=== PATIENT | male | born 1935 | race Caucasian/White ===

== ENCOUNTER → 2016-12-17 | Outpatient (CLI) | payer MEDICARE, BC ==
[~2016-12-17] MED LIST: ATEN25TA PO; FURO40TA2 PO; LEVA1TAB2 PO; LEVO25TA5 PO; LOSA50TA20 PO; PRAV40TA2 PO; ROPI0.5T PO; TAMS0.4C2 PO; aspirin PO
--- NOTE | 2016-12-17 14:57 | REP ---
Clinical: Pain and swelling . Technique: Batres scale and color Doppler evaluation using linear high frequency transducer. Findings: Ultrasound examination of the right lower extremity deep venous structures from the common femoral vein to the popliteal vein demonstrates normal compressibility flow and wave patterns in response to respiration and augmentation. There is no evidence for deep venous thrombosis. Impression: No evidence for deep venous thrombosis. Signed by Jeff Dyer MD 12/17/2016 02:49 P
--- NOTE | 2016-12-17 15:00 | REP ---
Clinical: Palpable mass. Technique: Real time lacey scale and color evaluation using linear high frequency transducer. Findings: Directed ultrasound examination at the site of palpable mass along the mid lateral east demonstrates a avascular subcutaneous fluid collection measuring 3.3 x 0.7 x 2.9 cm with small amount of internal echogenicity. The patient gives a history of trauma and this may represent resolving hematoma or residual seroma. Impression: Small fluid collection may represent hematoma versus seroma. Signed by Jeff Dyer MD 12/17/2016 02:52 P
== END ==
LOC: M RAD 13:55
PROVIDERS: ATTEND Physician Assistant
DX: R22.41 Localized swelling, mass and lump, right lower limb (principal)

== ENCOUNTER → 2017-03-04 | Outpatient (CLI) | payer MEDICARE, BC | LOC: M LAB 10:09 | PROVIDERS: ATTEND Radiology Radiation Oncology | DX: C61 Malignant neoplasm of prostate (principal) ==

== ENCOUNTER → 2017-03-05 | Outpatient (CLI) | payer MEDICARE, BC ==
--- NOTE | 2017-03-06 09:20 | RADONC ---
RADIATION ONCOLOGY FOLLOWUP NOTE DATE: 03/05/2017 CHART NUMBER: [id number] DIAGNOSIS: Prostate cancer. STAGE: II, [id number]. FOLLOWUP NOTE: Mr. 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 The patient presents today reporting he is doing quite well with no complaints at this time related to his radiation therapy or disease. He has no urinary or bowel difficulties, and no bone pain. REVIEW OF SYSTEMS: The patient's review of systems is noncontributory. He denies nausea, vomiting, fevers, chills, night sweats, diplopia, headaches, anxiety or depression, anorexia, weight loss, visual disturbances, chest pain, urinary or bowel difficulties, bone pain or neurological problems. PHYSICAL EXAMINATION: The patient is a well-developed, well-nourished male in no acute distress. HEENT exam is normocephalic, atraumatic. Extraocular movements are intact. There is no palpable cervical, supraclavicular, infraclavicular, axillary, or inguinal lymphadenopathy present. Lungs are clear to auscultation and percussion. Heart has a regular rate and rhythm. Abdomen is benign with no hepatosplenomegaly, masses, or tenderness. Rectal examination reveals a normal anal sphincter tone. His prostate is smooth with no evidence of nodularity. Skeletal examination reveals no tenderness to pressure or percussion of the bony skeleton. Extremities reveal no clubbing, cyanosis, or edema. Neurologic exam is grossly intact as is the remainder of the physical examination. ASSESSMENT: The patient is clinically ANNETTE at this time and will be seen by us again in 1 year for further followup. He will also continue to be followed by his other physicians as well. cc: MD Leonor Bunch DO
== END ==
LOC: M ONCR 12:56
PROVIDERS: ATTEND Radiology Radiation Oncology
DX: C61 Malignant neoplasm of prostate (principal)

== ENCOUNTER → 2017-09-03 | Outpatient (REF) | payer MEDICARE, BC ==
[2017-09-07 00:06] LABS: Lyme Disease IgG Ab 18 kDa Ban Present (.); Lyme Disease IgG Ab 23 kDa Ban Present (.); Lyme Disease IgG Ab 28 kDa Ban Absent (.); Lyme Disease IgG Ab 30 kDa Ban Absent (.); Lyme Disease IgG Ab 39 kDa Ban Present (.); Lyme Disease IgG Ab 41 kDa Ban Present (.); Lyme Disease IgG Ab 45 kDa Ban Absent (.); Lyme Disease IgG Ab 58 kDa Ban Present (.); Lyme Disease IgG Ab 66 kDa Ban Absent (.); Lyme Disease IgG Ab 93 kDa Ban Absent (.); Lyme Disease IgG West Blot Int Positive (.); Lyme Disease IgG/IgM Antibodie 3.66 ISR (0.00-0.90); Lyme Disease IgM Ab 23 kDa Ban Present (.); Lyme Disease IgM Ab 39 kDa Ban Absent (.); Lyme Disease IgM Ab 41 kDa Ban Absent (.); Lyme Disease IgM Ab Quantitati <0.80 index (0.00-0.79); Lyme Disease IgM West Blot Int Negative (.)
== END ==
LOC: M LAB REF 09:21
DX: R21 Rash and other nonspecific skin eruption (principal)
CPT/HCPCS: 86617

== ENCOUNTER → 2017-12-12 | Outpatient (REF) | payer MEDICARE, BC ==
[2017-12-12 19:06] LABS: FERRITIN 19 NG/ML (26-388); IRON (FE) 28 UG/DL (65-175); PERCENT SATURATION 9.3 % (19.7-50.0); TOTAL IRON BINDING CAPACITY 301 UG/DL (250-450)
[2017-12-12 19:11] LABS: FOLATE 17.6 NG/ML; VITAMIN B12 LEVEL 223 PG/ML
[2017-12-12 19:56] LABS: RETIC HEMOGLOBIN EQUIVALENT 30.2 pg (24-36); RETICULOCYTE # 51.9 10^9/L (17-77); RETICULOCYTE % 1.3 % (0.5-1.5)
== END ==
LOC: M LAB REF 17:34
DX: D64.9 Anemia, unspecified (principal)
CPT/HCPCS: 82746

== ENCOUNTER 2018-02-25 10:52 | Day surgery (SDC) | payer MEDICARE, BC ==
[2018-02-25] MEDS: NS 1,000 ML IV ×2 (11:00)
[2018-02-25] MEDS ORDERED: PROPOFOL 200 MG/20 ML VIAL As Ordered ×2 (11:43)
[2018-02-25] MEDS ORDERED: fentaNYL 100 MCG/2 ML INJECTION (J3010) As Ordered ×2 (11:43)
[2018-02-25] MEDS ORDERED: LIDOCAINE 2% INJ 100 MG/5 ML SDV (FOR ANES.) As Ordered ×2 (11:43)
[2018-02-25 14:33] LABS: BLOOD UREA NITROGEN 15 MG/DL (7-18)
[2018-02-25 14:33] LABS: CREATININE FOR GFR 0.99 MG/DL (0.70-1.30); GLOMERULAR FILTRATION RATE > 60.0 (>35)
== END 2018-02-25 14:20 | disposition home or self-care (01) ==
LOC: M OPP 10:52
DX: C16.0 Malignant neoplasm of cardia (principal); D50.9 Iron deficiency anemia, unspecified; K64.0 First degree hemorrhoids; K57.30 Diverticulosis of large intestine without perforation or abscess without bleeding
CPT/HCPCS: 45378

== ENCOUNTER → 2018-03-09 | Outpatient (CLI) | payer MEDICARE, BC ==
[2018-03-09 11:33] LABS: PROSTATIC SPECIFIC AG MONITOR 0.2 NG/ML (< 4.0)
== END ==
LOC: M LAB 10:38
DX: C61 Malignant neoplasm of prostate (principal)
CPT/HCPCS: 84153

== ENCOUNTER → 2018-03-11 | Outpatient (CLI) | payer MEDICARE, BC | LOC: M ONCR 12:47 | DX: C61 Malignant neoplasm of prostate (principal) | CPT/HCPCS: G0463 ==

== ENCOUNTER → 2018-03-25 | Outpatient (CLI) | payer MEDICARE, BC ==
[~2018-03-25] MED LIST changes: +AMLO5TAB4 PO; +ASPI325T25 PO; +ASPI81TA85 PO; -LOSA50TA20 PO; +LOSA50TA73 PO
--- NOTE | 2018-03-25 19:02 | REP ---
PET/CT: History: Initial staging gastroesophageal junction adenocarcinoma. Assess for distant metastatic disease. Comparisons: Comparison CT study of the chest, abdomen and pelvis February 25, 2018. TECHNIQUE: 58 minutes following the intravenous injection of a 8.3 mCi dose of F-18 FDG, three-dimensional PET scintigraphy is acquired from the skull base to the proximal thighs. Triplanar noncontrast CT scanning is acquired through the same anatomic range for attenuation correction, and image registration with scan parameters optimized to minimize radiation exposure to the patient. PET scintigraphy and CT datasets were fused and displayed on a workstation with multiplanar and projection display capability. PET/CT Findings: The known mass at the gastric cardia at the GE junction shows hypermetabolic uptake. Maximum standard uptake value is rather high at 13.8. The hypermetabolic uptake focus is smaller than might be expected from the CT findings spanning approximately 2.2 cm. There is no evidence of regional hypermetabolic adenopathy. No abnormal hypermetabolic uptake is seen within the liver. No abnormal adrenal uptake is seen. There are two accessory splenules at the inferior margin of the spleen. These do not show abnormal FDG tracer. No other abnormal abdominal or pelvic uptake is seen. There is diverticulosis in the sigmoid colon. There is no abnormal hypermetabolic uptake in the thorax. Head and neck soft tissues are unremarkable. The PET scintigraphy is otherwise negative. Impression: Hypermetabolic uptake in a 2.2 cm area at the gastroesophageal junction/gastric cardia region. Maximum standard uptake value 13.8. No other abnormal hypermetabolic uptake is seen. Electronically Signed by Cole Betancourt MD 03/25/2018 08:47 P
== END ==
LOC: M PLARAD 08:11
PROVIDERS: ATTEND Surgery
DX: C16.0 Malignant neoplasm of cardia (principal); I25.10 Atherosclerotic heart disease of native coronary artery without angina pectoris; I50.9 Heart failure, unspecified; I11.0 Hypertensive heart disease with heart failure
CPT/HCPCS: 78815; A9552

== ENCOUNTER → 2018-04-23 | Outpatient (CLI) | payer MEDICARE, BC ==
[~2018-04-23] MED LIST changes: -AMLO5TAB4 PO; +AMLO5TAB6 PO; -LOSA50TA73 PO; +LOSA50TA88 PO
--- NOTE | 2018-04-24 11:10 | RADONC ---
RADIATION ONCOLOGY CONSULTATION NOTE DATE: 04/23/2018 CHART NUMBER: [id number] DIAGNOSIS: Gastroesophageal cancer. STAGE: II B, T2N0M0. ECOG PERFORMANCE STATUS: 1 CONSULTATION NOTE: Mr. 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 HISTORY OF PRESENT ILLNESS: The patient was in his usual state of health until recently when he was seen by his primary care physician, Dr. Nick Riddle, and was found to have iron-deficiency anemia. He was subsequently referred to Dr. Zhang, and colonoscopy as well as upper endoscopy was undertaken. The procedure was done on February 25, 2018 and a circumferential mass was seen in the cardia of the stomach. So biopsy was undertaken and pathology revealed a poorly differentiated adenocarcinoma involving the gastric cardia. It was noted that the tumor was 40 cm from the incisors. It was nonobstructing. It involved approximately one-third of the lumen circumference. CT scan of the chest, abdomen and pelvis was undertaken on 02/25/2018 and confirms circumferential mucosal thickening at the gastroesophageal junction consistent with gastric neoplasm. A PET scan was done on 03/25/2018 and showed hypermetabolic uptake in a 2.2 cm area at the gastroesophageal junction/gastric cardia region with a maximum SUV value of 13.8. The patient was seen by Dr. Irvin Anne, who spent significant amount of time with the patient and his discussing his options as well as the risks and benefits of each. 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 as well as having a diagnosis of congestive heart failure. He had explained to him in detail external beam radiation therapy as a palliative option, external beam radiation therapy combined with chemotherapy as well as preoperative radiation and surgery. The risks of surgery were explained in detail considering his advanced age and cardiac issues. The patient is now coming to me for further discussion of these issues. PAST MEDICAL HISTORY: The patient's past medical history is positive for congestive heart failure, hearing loss, hypertension, prostate cancer, myocardial infarction, diverticulosis, and chronic kidney disease. ALLERGIES: The patient has NO KNOWN DRUG ALLERGIES. SOCIAL HISTORY: The patient does not smoke cigarettes. He does not abuse alcohol. FAMILY HISTORY: The patient's family history is positive for a father with colon cancer. REVIEW OF SYSTEMS: The patient's review of systems is positive for hearing loss but is otherwise generally noncontributory. Denies nausea, vomiting, fevers, chills, night sweats, diplopia, headaches, anxiety or depression, anorexia, weight loss, visual disturbances, chest pain, urinary or bowel difficulties, bone pain, or neurological problems. PHYSICAL EXAMINATION: The patient is a well-developed, well-nourished male in no acute distress. HEENT exam is normocephalic, atraumatic. Extraocular movements are intact. There is no palpable cervical, supraclavicular, infraclavicular, axillary, or inguinal lymphadenopathy present. Lungs are clear to auscultation and percussion. Heart has a regular rate and rhythm. Abdomen is benign with no hepatosplenomegaly, masses, or tenderness. Skeletal examination reveals no tenderness to pressure or percussion of the bony skeleton. Extremities reveal no clubbing, cyanosis, or edema. Neurologic exam is grossly intact, as is the remainder of the physical examination. ASSESSMENT: Once again, I spent a significant amount time with the patient discussing his options. He is aware that the most likely chance of obtaining long-term control and potential cure of this is with surgery. The patient, however does not appear to want surgery. We then discussed radiation therapy in attempt to obtain some type of local control. I discussed with him the idea of systemic therapy and they appear quite hesitant to consider that. I let him know that at his age and his condition he cannot really make a wrong choice. Quality of life is important and he does have multiple medical illnesses, which would make some of these interventions somewhat risky. At the end of a lengthy discussion, the patient and his decided they do want external beam radiation therapy. Indeed, he has had that in the past without any difficulty whatsoever for his prostatic cancer. I did encourage him and have scheduled an appointment for him to our medical oncologist, Dr. Soledad Oreilly, for at least discussion of any systemic option. The patient is hesitant to even consider surgery at this time. I let him know that the radiation would be the same at least during the first 6 weeks of treatment and that any decision does not have to be made at this time. He can decide on surgery sometime before completion of radiation. We will continue to follow this patient closely and hope we can be of benefit to him. As noted above, he is scheduled to be seen in medical oncology and we are scheduling him for initiation of treatment planning. Thank you once again for allowing us to participate in the care of this very pleasant gentleman. As always, warm regards. cc: MD Soledad Gabriel MD Gerald Weinstein, MD Jason White, MD
== END ==
LOC: M ONCR 09:59
PROVIDERS: ATTEND Radiology Radiation Oncology
DX: C16.0 Malignant neoplasm of cardia (principal)

== ENCOUNTER 2018-04-29 13:02 | Outpatient (RCR) | payer MEDICARE, BC ==
[2018-04-29 13:30] LABS: HEMATOCRIT 32.1 % (42.0-52.0); HEMOGLOBIN 10.3 g/dl (13.5-17.5); LYMPH % 18.4 % (24.0-44.0); MEAN CORPUSCULAR HEMOGLOBIN 27.1 pg (27.0-33.0); MEAN CORPUSCULAR HGB CONC 32.1 g/dl (32.0-36.5); MEAN CORPUSCULAR VOLUME 84.4 fl (80.0-96.0); NEUTROPHILS # 5.8 10^3/uL (1.8-7.7); NEUTROPHILS % 70.6 % (36.0-66.0); RED BLOOD COUNT 3.8 10^6/uL (4.30-6.10); WHITE BLOOD COUNT 8.2 10^3/uL (4.0-10.0)
--- NOTE | 2018-04-29 14:57 | RADONC ---
RADIATION ONCOLOGY SIMULATION NOTE: DATE: 04/29/2018 CHART NUMBER: [id number] Mr. Lopez was taken to the CT scan for CT simulation of his gastroesophageal field. CT was accomplished without difficulty or discomfort. Radiation treatment planning is underway and radiation treatments will begin subsequently. An immobilization device was created. It will be used throughout the course of treatment. It was created without difficulty or discomfort. I was physically present throughout the course of CT simulation.
== END 2018-05-07 ==
LOC: M ONCR 13:02
PROVIDERS: ATTEND Radiology Radiation Oncology
DX: C16.0 Malignant neoplasm of cardia (principal)

== ENCOUNTER → 2018-06-04 | Outpatient (RCR) | payer MEDICARE, BC ==
--- NOTE | 2018-05-20 10:17 | RADONC ---
RADIATION ONCOLOGY PROGRESS NOTE DATE OF SERVICE: 05/18/2018 CHART NUMBER: [id number]. PROGRESS NOTE: Mr. Lopez with a diagnosis of gastroesophageal cancer, stage IIB, T2N0M0, is receiving local regional radiotherapy for local regional control. His current dose is 900 cGy of an anticipated 4500 cGy, and he is tolerating his radiotherapy reasonably well. He specifically denies any nausea, vomiting, or pain. He is unable to consume as much food as he did previously, resulting in some weight loss. We have given him some samples of some Ensure with some instruction as to nutritional and caloric supplementation. Otherwise, he is doing quite well and denies any real problems. REVIEW OF SYSTEMS He specifically denies any nausea, vomiting, hematemesis, coughing, sputum production, hemoptysis, or significant debilitating fatigue. He does experience some fatigue, however. The remainder of the physical examination is essentially noncontributory. EXAMINATION AND FINDINGS: Skin within the irradiated volume shows no erythema and certainly no desquamation. Lungs are clear. Abdomen: Without evidence of hepatomegaly, masses, deep abdominal tenderness. Extremities: Without cyanosis, clubbing, or edema. The remainder of the physical examination is unchanged. IMPRESSION: Tolerating therapy well but with some weight loss. PLAN: Nutritional support, as mentioned above. Edited 05/20/2018 aml MTDD
--- NOTE | 2018-05-26 20:05 | RADONC ---
RADIATION ONCOLOGY PROGRESS NOTE DATE OF SERVICE: 05/25/2018 CHART NUMBER: [id number]. PROGRESS NOTE: Mr. 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 His current dose is 1800 cGy of a proposed 4500 cGy. He is basically tolerating his radiotherapy reasonably well. He has only lost 1 pound since last week. He denies any nausea, vomiting, coughing, sputum production, or hemoptysis, although he does complain of a mild amount of dysphagia. He is still able to consume and swallow most beverages and semi solids. The remainder of the review of systems is essentially noncontributory, as he denies any nausea, vomiting, coughing, sputum production, hemoptysis, headache, difficulty breathing, abdominal pain, neurologic deficits, dizziness, headaches, or focal neurologic deficit. EXAMINATION FINDINGS: The patient is a well-appearing male in no acute distress. The skin within the irradiated volume shows neither erythema nor desquamation. Lymphatics: No palpable peripheral lymphadenopathy is appreciated. The remainder of the physical examination is unchanged. IMPRESSION: Tolerating therapy well. PLAN: Treatments to continue. MTDD
[2018-06-01 11:02] LABS: HEMATOCRIT 32.7 % (42.0-52.0); HEMOGLOBIN 10.6 g/dl (13.5-17.5); LYMPH % 4.4 % (24.0-44.0); MEAN CORPUSCULAR HEMOGLOBIN 27.7 pg (27.0-33.0); MEAN CORPUSCULAR HGB CONC 32.4 g/dl (32.0-36.5); MEAN CORPUSCULAR VOLUME 85.5 fl (80.0-96.0); NEUTROPHILS % 86.6 % (36.0-66.0); RED BLOOD COUNT 3.83 10^6/uL (4.30-6.10); WHITE BLOOD COUNT 8.1 10^3/uL (4.0-10.0)
--- NOTE | 2018-06-02 08:23 | RADONC ---
RADIATION ONCOLOGY PROGRESS NOTE DATE: 06/01/2018 CHART #: [id number] Mr. Lopez is presently at a dose of 2700 cGy to his stomach and overall is tolerating his treatments fairly well. The patient reports that he has a sore throat and has had dark stools which he believes is blood. He also has no appetite and has lost 5 pounds in the past week and a total of 14 pounds since consultation. REVIEW OF SYSTEMS: The patient's review of systems is noncontributory. Denies nausea, vomiting, fevers, chills, night sweats, diplopia, headaches, anxiety or depression, anorexia, weight loss, visual disturbances, chest pain, urinary or bowel difficulties, bone pain, or neurological problems. PHYSICAL EXAMINATION: The patient's skin is in good condition with no evidence of radiation change present. There is no moist or dry desquamation. The remainder of his physical exam is unchanged except for his weight, which is now 150.8 pounds. ASSESSMENT: The patient is clinically doing fairly well. We had a lengthy discussion with regards to nutritional issues. I have given him some instructions for increased intake. We are not treating his throat or upper esophagus and I suspect some of this is due to acid reflux. He is not receiving chemotherapy to explain a sore feeling in the back of his throat. I have recommended he try Nexium or some other antacid type treatment in the meantime. Overall, we have discussed nutritional issues including the use of Ensure puddings. We will continue to follow him closely and radiation will continue at this point. I have also ordered a CBC to monitor his blood counts to see whether or not he is becoming anemic and the results have returned and he appears stable at this point. Radiation will continue in the meantime.
== END ==
LOC: M ONCR 05-11 14:23
PROVIDERS: ATTEND Radiology Radiation Oncology
DX: C16.0 Malignant neoplasm of cardia (principal)

== ENCOUNTER → 2018-06-11 | Outpatient (REF) | payer MEDICARE, BC | LOC: M LAB REF 17:35 | PROVIDERS: ATTEND Family Medicine | DX: D50.9 Iron deficiency anemia, unspecified (principal) ==

== ENCOUNTER 2018-06-22 09:51 | Outpatient (RCR) | payer MEDICARE, BC ==
--- NOTE | 2018-06-09 10:01 | RADONC ---
RADIATION ONCOLOGY PROGRESS NOTE DATE: 06/08/2018 CHART NUMBER: [id number] PROGRESS NOTE: Mr. Lopez is thus far at a dose of 3420 cGy to his stomach and was last treated on 06/05/2018. The patient and his family came in today reporting that he has not been drinking water. He has however been taking his 3 cans of Boost or Ensure a day. He has been taking a diuretic even though he has not been taking in fluids. REVIEW OF SYSTEMS: The patient's review of systems is positive for difficulty swallowing. He reports when he eats solid food he throws it back up. The remainder of his review of systems is noncontributory other than for weakness and weight loss. PHYSICAL EXAMINATION: The patient weighs 147.2 pounds, down 3-1/2 pounds since last week. This is down a total of 16 pounds since consultation. His physical exam is otherwise unchanged except for the lack now of any pedal edema. All his edematous fluid in the lower extremities is cleared. His skin is in good condition with no evidence of moist or dry desquamation. ASSESSMENT: I have placed the patient on rest for at least this week and we will reevaluate him over time. In addition, I have ordered 1 liter of IV fluids to be delivered today and I have scheduled him to come in tomorrow for further IV fluids if he is still not swallowing. He has been given dietary instructions and encouraged to continue with oral intake. I have also instructed that the patient come to the ER if he develops any new problems in the meantime. His family had encouraged him to come to the ER this weekend but he does not wish to come to the ER and is concerned about the wait times. In light of this, we were planning on the fluid today and perhaps tomorrow. We will continue to follow him closely. He is aware that he needs to come to the emergency room if he does not improve. I have told him to discontinue his diuretics for now. He is continuing with urinary output and reported that he did urinate earlier today and the urine was light clear yellow. RICHARD
--- NOTE | 2018-06-16 15:28 | RADONC ---
RADIATION ONCOLOGY PROGRESS NOTE DATE: 06/15/2018 CHART NUMBER: [id number] PROGRESS NOTE: Mr. Lopez is presently a dose of 3600 cGy to his stomach and is now tolerating his treatments quite well. He had been on break for 1 week and had, had some IV fluids. The first set of IV FLUIDS the patient reported that he was feeling wonderful. He is now fully recovered and wanting to restart his radiation, which was restarted today. REVIEW OF SYSTEMS: The patient's review of systems is noncontributory. Denies nausea, vomiting, fevers, chills, night sweats, diplopia, headaches, anxiety or depression, anorexia, weight loss, visual disturbances, chest pain, urinary or bowel difficulties, bone pain, or neurological problems. PHYSICAL EXAMINATION: The patient's skin is in good condition with no evidence of radiation change present. There is no moist or dry desquamation. The remainder of his physical exam remains unchanged. Mr. Lopez has reinitiated radiation treatments, will continue as scheduled.
--- NOTE | 2018-06-23 08:37 | RADONC ---
RADIATION ONCOLOGY TREATMENT SUMMARY DATE: 06/22/2018 CHART NUMBER: [id number] DIAGNOSIS: Gastroesophageal cancer. STAGE: IIB, T2N0M0. ECOG PERFORMANCE STATUS: 0 TREATMENT SUMMARY: Mr. 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 We treated the patient to his stomach for a total dose of 4500 cGy delivered in 25 fractions of 180 cGy each over 41 elapsed days from 05/12/2018 through 06/22/2018. The patient's GE junction and stomach were treated on a linear accelerator utilizing a 15 MV photon beam via 3D conformal technique. Anterior and posterior parallel opposed nava were initially used followed by lateral nava in order to maintain all structures within their tolerance limits. Mr. Lopez tolerated his treatments quite well and was able to complete therapy as prescribed. He did require short treatment break and some IV fluids due to dehydration but he was then able to complete therapy without further interruption. I have scheduled the patient to see me again in 1 month for further followup. He will also continue to be followed by his other physicians as well. cc: MD Soledad Gabriel MD Gerald Weinstein, MD Jason White, MD
== END 2018-07-05 ==
LOC: M ONCR 09:51
PROVIDERS: ATTEND Radiology Radiation Oncology
DX: C16.0 Malignant neoplasm of cardia (principal)

== ENCOUNTER → 2018-07-29 | Outpatient (CLI) | payer MEDICARE, BC ==
[~2018-07-29] MED LIST changes: +ASPI-255 PO; -ASPI325T25 PO
--- NOTE | 2018-08-04 13:03 | RADONC ---
RADIATION ONCOLOGY FOLLOWUP NOTE DATE: 07/29/2018 CHART NUMBER: [id number] DIAGNOSIS: Gastroesophageal cancer. STAGE: II B, T2N0M0 ECOG PERFORMANCE STATUS: 0 FOLLOWUP NOTE: Mr. 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 The patient reports today that he is doing quite well. He is having no discomfort at this time and is able to eat without difficulty. Indeed the patient reports that he has been gaining weight and has gained 5 pounds in just 4 weeks since completion of therapy. REVIEW OF SYSTEMS: The patient's review of systems is noncontributory. Denies nausea, vomiting, fevers, chills, night sweats, diplopia, headaches, anxiety or depression, anorexia, weight loss, visual disturbances, chest pain, urinary or bowel difficulties, bone pain, or neurological problems. PHYSICAL EXAMINATION: The patient is a well-developed, well-nourished male in no acute distress. HEENT exam is normocephalic, atraumatic. Extraocular movements are intact. There is no palpable cervical, supraclavicular, infraclavicular, axillary, or inguinal lymphadenopathy present. Lungs are clear to auscultation and percussion. Heart has a regular rate and rhythm. Abdomen is benign with no hepatosplenomegaly, masses, or tenderness. Skeletal examination reveals no tenderness to pressure or percussion of the bony skeleton. Extremities reveal no clubbing, cyanosis, or edema. Neurologic exam is grossly intact, as is the remainder of the physical examination. ASSESSMENT: The patient has seemed to have achieved palliation of his symptoms and is doing quite well now 4 weeks post completion of palliative radiation therapy to his esophagus and stomach. The patient and his are aware that this was not curative treatment but they have asked for a PET scan to evaluate his overall state at the present time. They are most happy with our results thus far. I have scheduled the patient to see me again in 3 months for further followup. I have also set him up for a PET CT scan post-treatment to evaluate his present situation. In the meantime, he will continue his followup with his other physicians. I am glad we have been able to achieve some palliation. cc: MD Soledad Gabriel MD Gerald Weinstein, MD Jason White, MD
== END ==
LOC: M ONCR 11:07
PROVIDERS: ATTEND Radiology Radiation Oncology
DX: C16.0 Malignant neoplasm of cardia (principal); Z92.3 Personal history of irradiation

== ENCOUNTER 2018-08-16 11:08 | Inpatient (IN) | payer MEDICARE, BC ==
[~2018-08-16] VITALS: Ht 170.2 cm; Wt 69.9 kg
[2018-08-16] MEDS ORDERED: ATOR40TA75 PO (11:15)
--- NOTE | 2018-08-16 11:56 | REP ---
Oral chest x-ray: Single view. History: Fever. Comparison study: October 14, 2013. Findings: EKG monitoring electrodes overlie the chest. Lungs are well inflated and clear. Pleural angles are sharp. Heart size is unchanged and borderline. Pulmonary vasculature is not increased. Impression: Borderline heart size unchanged. Otherwise no acute disease. Electronically Signed by Cole Betancourt MD 08/16/2018 11:47 A
[2018-08-16 12:06] LABS: BASO % 0.1 % (0.0-1.0); EOS % 0.1 % (0.0-3.0); HEMATOCRIT 21.6 % (42.0-52.0); LYMPH % 1.2 % (24.0-44.0); MEAN CORPUSCULAR HEMOGLOBIN 30.2 pg (27.0-33.0); MEAN CORPUSCULAR HGB CONC 32.4 g/dl (32.0-36.5); MEAN CORPUSCULAR VOLUME 93.1 fl (80.0-96.0); MONO # 0.5 10^3/uL (0.0-0.8); MONO % 5.4 % (0.0-5.0); NEUTROPHILS # 8.3 10^3/uL (1.8-7.7); NEUTROPHILS % 92.6 % (36.0-66.0); PLATELET COUNT, AUTOMATED 159 10^3/uL (150-450); RED BLOOD COUNT 2.32 10^6/uL (4.30-6.10)
[2018-08-16 12:34] LABS: ALBUMIN 2.3 GM/DL (3.2-5.2); ALT/SGPT 17 U/L (12-78); BILIRUBIN,DIRECT 0.2 MG/DL (0.0-0.2); BILIRUBIN,TOTAL 0.7 MG/DL (0.2-1.0); BLOOD UREA NITROGEN 20 MG/DL (7-18); CARBON DIOXIDE LEVEL 24 MEQ/L (21-32); CHLORIDE LEVEL 108 MEQ/L (98-107); CPK CREATINE PHOSPHOKINASE 66 U/L (39-308); CREATININE FOR GFR 1.01 MG/DL (0.70-1.30); GLOMERULAR FILTRATION RATE > 60.0 (>35); GLUCOSE, FASTING 189 MG/DL (70-100); LIPASE 68 U/L (73-393); MB/CK RELATIVE INDEX 2.73 (< OR =4); POTASSIUM SERUM 3.7 MEQ/L (3.5-5.1); SODIUM LEVEL 141 MEQ/L (136-145); TOTAL PROTEIN 5.4 GM/DL (6.4-8.2); TROPONIN I 0.03 NG/ML (< 0.10)
[2018-08-16 12:37] LABS: LYMPH # 0.1 10^3/uL (1.5-4.5)
[2018-08-16] MEDS ORDERED: PANTOPRAZOLE 40MG INJ (PROTONIX) (C9113) IV ONE (13:30)
--- NOTE | 2018-08-16 13:52 | REP ---
CT BRAIN WITHOUT CONTRAST: HISTORY: Altered mental status. CT FINDINGS: Preliminary digital photographic double radiograph is unremarkable. Bone window settings demonstrate that the visualized paranasal sinuses are clear. No bony destructive lesion is appreciated. There is mild vascular calcification. No intraorbital abnormality is seen. There is no evidence of intracranial mass lesion. No infarct or hemorrhage is seen. There is diffuse generalized volume loss. No extra-axial fluid collection seen. IMPRESSION: Diffuse atrophy and mild vascular calcification. No acute intracranial abnormality. Electronically Signed by Cole Betancourt MD 08/16/2018 02:46 P
--- NOTE | 2018-08-16 14:16 | REP ---
Duplex extremity venous ultrasound: Bilateral lower extremity. History: Edema. Question DVT nithya Findings: The deep veins are anechoic and fully compressible from the groin to the popliteal fossa in the left and right lower extremity. Color flow imaging is homogeneous. Spectral Doppler interrogation demonstrates intact respiratory variation in flow and normal manual augmentation of flow. There is no evidence of deep vein thrombosis. Impression: Negative bilateral lower extremity duplex venous ultrasound. No evidence of deep vein thrombosis. There is a left popliteal fossa Allen's cyst. Electronically Signed by Cole Betancourt MD 08/16/2018 02:08 P
[2018-08-16] MEDS ORDERED: SLOW160T8 PO (14:26)
[2018-08-16] MEDS ORDERED: LEVO50TA45 PO (14:26)
[2018-08-16] MEDS ORDERED: NEXI20CA PO (14:26)
[2018-08-16] MEDS ORDERED: LOSA50TA88 PO (14:26)
[2018-08-16] MEDS ORDERED: ACETAMINOPHEN 325 MG TAB PO ONE (15:00)
[2018-08-16] MEDS ORDERED: MAALOX 30 ML SUSP *UDC PO PRN (15:15)
[2018-08-16] MEDS ORDERED: MOM 30ML SUSPENSION UDC PO PRN (15:15)
[2018-08-16] MEDS ORDERED: FUROSEMIDE 40 MG/4 ML VIAL (J1940) IV ONE (15:45)
--- NOTE | 2018-08-16 15:46 | HPEPDOC ---
General Date of Admission 08/16/18 Chief Complaint The patient is a 83-year-old male admitted with a reason for visit of Vomiting. Source: Patient, Family, RN/MD, Old records Exam Limitations: Hard of hearing Severity: Moderate Associated Symptoms: Shortness of breath, Weakness History of Present Illness Mr. 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 Patient was in his usual state of health this morning when he went to attend yazidism after that he and his went to have food and in the restaurant he felt nauseous went to the bathroom and while he was coming out he was shaking very badly could hardly walk and seemed like he would fall or pass out. He he say he was sleeping a lot at home and was getting more fatigued in the last 2 to 3 weeks. He also said he had a tick bite about 3 weeks ago . He did not have any rash. In the ED he was febrile to 100.5 in the triage then it was up to 101.4 . His labs were significant for a Hb of 7.0. He was guaiac positive in the ED. He denied any overt bleeding from any where. He denied any cough or phlegm , he denied any dysuria or hematuria. He was admitted for symptomatic anemia and work up for fever and chills. in the back ground of immunocompromised state. While in the ED his blood pressure dropped down to 83/53 as per his his blood pressure usually is about 100 but it used to be as low as 85/50 when he was on radiation and he becomes dehydrated. In view of his immunocompromised state i would treat him as sepsis. I have personally looked at his CT head and CXR . His ct scan showed generalized atrophy appropriate for age , no acute hemorrhage or infarction. His CXR did not show any effusion or infiltrates. I reviewed the US of both the legs did not show any DVT. I looked at his EKG done in the ED it showed normal sinus rhyth. Home Medications Scheduled Aspirin (Aspir 81) 81 Mg Tab, 81 MG PO DAILY, (Reported) Atorvastatin Calcium (Atorvastatin Calcium) 40 Mg Tablet, 40 MG PO QHS, (Reported) Esomeprazole Magnesium (Nexium) 20 Mg Capsule.dr, 20 MG PO DAILY, (Reported) Ferrous Sulfate, Dried (Slow Release Iron) 160 Mg Tablet.er, 160 MG PO DAILY, (Reported) Furosemide (Furosemide) 40 Mg Tab, 20 MG PO DAILY, (Reported) Levothyroxine Sodium (Levoxyl) 50 Mcg Tablet, 50 MCG PO DAILY, (Reported) Losartan Potassium (Losartan Potassium) 50 Mg Tablet, 50 MG PO Q2D, (Reported) Ropinirole HCl (Ropinirole HCl) 0.5 Mg Tab, 0.5 MG PO QHS, (Reported) Allergies Coded Allergies: No Known Allergies (Unverified , 07/13/18) Past Medical History Medical History CAD with 2 AMIs in the past in 1983 and 1993, stage II B, T2N0M0, 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 Patient w Surgical History left hip surgery. Hydrocele cortisone injections in right ankle Family History Significant Family History: Cancer (colon, now ), Diabetes (mother, now ), Heart disease (siblings) Social History * Smoker: Denies Alcohol: Denies Drugs: denies A-FIB/CHADSVASC A-FIB History Current/History of A-Fib/PAF?: No Current Oral Anticoagulant The: No Review of Systems Constitutional: Reports: Chills, Fever, Malaise Eyes: Denies: Pain, Vision change ENT: Denies: Head Aches, Ear Pain, Dysphagia Skin: Denies: Rash, Lesions, Breakdown Pulmonary: Denies: Dyspnea, Cough Cardiovascular: Denies: Chest Pain, Palpitations, Orthopnea, Paroxysmal Noc. Dyspnea, Lt Headedness Gastrointestinal: Reports: Nausea; Denies: Vomiting, Abdominal Pain, Diarrhea Genitourinary: Denies: Dysuria, Frequency, Incontinence, Retention Hematologic: Denies: Bruising, Bleeding Excessively Musculoskeletal: Denies: Neck Pain, Back Pain, Joint Pain, Muscle Pain, Spasms Neurological: Reports: Weakness, Incoordination Physical Examination General Exam: Positive: Alert, Cooperative, No Acute Distress Eye Exam: Positive: PERRLA, Conjunctiva & lids normal, EOMI; Negative: Sclera icteric ENT Exam: Positive: Atraumatic, Mucous membr. moist/pink, Pharynx Normal Neck Exam: Positive: Supple; Negative: JVD, thyromegaly Chest Exam: Positive: Clear to auscultation, Normal air movement Heart Exam: Positive: Rate Normal, Regular Rhythm, Normal S1, Normal S2; Negative: Murmurs, Rubs Telemetry: Positive: No significant arrhythmia Abdomen Exam: Positive: Normal bowel sounds, Soft; Negative: Tenderness, Hepatospenomegaly Extremity Exam: Positive: Edema (3+ edema R>L) Skin Exam: Positive: Nl turgor and temperature; Negative: Breakdown, Lesion Psych Exam: Positive: Mental status NL, Mood NL, Memory Intact Vital Signs Vital Signs Date Time Temp Pulse Resp B/P (MAP) Pulse Ox O2 Delivery O2 Flow Rate FiO2 08/16/18 14:10 92 14 100/59 (73) 95 Room Air 08/16/18 11:26 99.2 Laboratory Data Labs 24H Laboratory Tests 2 08/16/18 11:52: Immature Granulocyte % (Auto) 0.6, White Blood Count 9.0, Red Blood Count 2.32L, Hemoglobin 7.0L, Hematocrit 21.6L, Mean Corpuscular Volume 93.1, Mean Corpuscular Hemoglobin 30.2, Mean Corpuscular Hemoglobin Concent 32.4, Red Cell Distribution Width 17.2H, Platelet Count 159, Neutrophils (%) (Auto) 92.6H, Lymphocytes (%) (Auto) 1.2L, Monocytes (%) (Auto) 5.4H, Eosinophils (%) (Auto) 0.1, Basophils (%) (Auto) 0.1, Neutrophils # (Auto) 8.3H, Lymphocytes # (Auto) 0.1L, Monocytes # (Auto) 0.5, Eosinophils # (Auto) 0.0, Basophils # (Auto) 0.0, Nucleated Red Blood Cells % (auto) 0.0 08/16/18 11:53: Anion Gap 9, Glomerular Filtration Rate > 60.0, Calcium Level 8.0L, Aspartate Amino Transf (AST/SGOT) 18, Alanine Aminotransferase (ALT/SGPT) 17, Alkaline Phosphatase 77, Total Bilirubin 0.7, Direct Bilirubin 0.2, Total Creatine Kinase 66, Creatine Kinase MB 2.0, Creatine Kinase MB Relative Index 2.73, Troponin I 0.03, Total Protein 5.4L, Albumin 2.3L, Albumin/Globulin Ratio 0.74L, Lipase 68L 08/16/18 12:03: Urine Color YELLOW, Urine Appearance HAZY, Urine pH 5.0, Urine Specific [place] 1.019, Urine Protein NEGATIVE, Urine Glucose (UA) NEGATIVE, Urine Ketones TRACEH, Urine Blood NEGATIVE, Urine Nitrite NEGATIVE, Urine Bilirubin NEGATIVE, Urine Urobilinogen 2.0H, Urine Leukocyte Esterase TRACEH, Urine WBC (Auto) 5H, Urine RBC (Auto) 5H, Urine Hyaline Casts (Auto) 0, Urine Bacteria (Auto) NEGATIVE, Urine Squamous Epithelial Cells 4, Urine Mucus (Auto) SMALL, Urine Sperm (Auto) CBC/BMP Laboratory Tests 08/16/18 11:52 Red Blood Count 2.32 L, Mean Corpuscular Volume 93.1, Mean Corpuscular Hemoglobin 30.2, Mean Corpuscular Hemoglobin Concent 32.4, Red Cell Distribution Width 17.2 H, Neutrophils (%) (Auto) 92.6 H, Lymphocytes (%) (Auto) 1.2 L, Monocytes (%) (Auto) 5.4 H, Eosinophils (%) (Auto) 0.1, Basophils (%) (Auto) 0.1, Neutrophils # (Auto) 8.3 H, Lymphocytes # (Auto) 0.1 L, Monocytes # (Auto) 0.5, Eosinophils # (Auto) 0.0, Basophils # (Auto) 0.0 08/16/18 11:53 Microbiology Microbiology 08/16/18 Blood Culture, Received Pending 08/16/18 Blood Culture, Received Pending 08/16/18 Respiratory Virus Panel (PCR) ([facility]) - Final, Complete 08/16/18 Urine Culture, Received Pending Assessment/Plan Mr. 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 Patient was in his usual state of he alth this morning when he went to attend yazidism after that he and his went to have food and in the restaurant he felt nauseous went to the bathroom and while he was coming out he was shaking very badly could hardly walk and seemed like he would fall or pass out. He he say he was sleeping a lot at home and was getting more fatigued in the last 2 to 3 weeks. He serena said he had a tick bite about 3 weeks ago . He did not have any rash. In the ED he was febrile to 100.5 in the triage then it was up to 101.4 . His labs were significant for a Hb of 7.0. He was guaiac positive in the ED. He denied any overt bleeding from any where. He denied any cough or phlegm , he denied any dysuria or hematuria. He was admitted for symptomatic anemia and work up for fever and chills with hypotension in the back ground of immunocompromised state rule out sepsis. Hypotension Hypovolemic Vs sepsis. with MAP of 59 will continue with the prbc. patient is a frail elderly gentleman and his usual blood pressures are in 100s to 110 no tachycardia, no dizziness or light headedness, no symptoms of hypoperfusion Patient may have chronic hypotension. Fever and chills with hypotension , lactacidosis rule out Sepsis No source of infection yet determined patient has h/o tick bite 3 weeks ago will check lyme serology he had lyme disease 3 years ago. blood cultures have been ordered UA is clean with only 5 WBCs. Resp panel is negative. CXR negative, abdomen benign will give tylenol. give 1 liter bolus in view of his CHF history started antibiotics Symtomatic anemia though guaic is positive there is no overt bleeding history possibly due to cancer and radiation will transfuse 2 units of prbc. 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 Prostate cancer treated with RT in 2008 deemed to be cured chronic anemia, hypothyroid continue synthroid hyperlipidemia, continue home meds hypertension continue amlodipine restless legs continue ropinirole CHF { Dr Redmond}, will continue with daily lasix. will get echo from dr sheldon office. Plan / VTE VTE Prophylaxis Ordered?: Yes BIMAL ROTH MD August 16, 2018 14:24
[2018-08-16] MEDS ORDERED: PIPERACILLIN/TAZOBACTAM SOD 3.375 GM in D5W MINI-BAG PLUS 50 ML IV ONE (16:45)
[2018-08-16] MEDS ORDERED: NS 500 ML IV ONE ×2 (16:45→17:00)
[2018-08-16 16:52] LABS: FERRITIN 31 NG/ML (26-388); IRON (FE) 33 UG/DL (65-175); PERCENT SATURATION 14.9 % (19.7-50.0); TOTAL IRON BINDING CAPACITY 221 UG/DL (250-450)
[2018-08-16 19:06] LABS: HEMATOCRIT 21.5 % (42.0-52.0)
[2018-08-16 19:13] LABS: HEMOGLOBIN 6.9 g/dl (13.5-17.5)
[2018-08-16 20:25] VITALS: BP 104/58
[2018-08-16] MEDS ORDERED: HEPARIN SOD (PORCINE) 5000 UNITS/ML VIAL SC SCH (21:00)
[2018-08-16] MEDS: ATORVASTATIN 20 MG TAB PO SCH (22:50)
[2018-08-16] MEDS: DOCUSATE SODIUM 100 MG CAP PO SCH (22:51)
[2018-08-16] MEDS: rOPINIRole 0.25 MG TAB(REQUIP) PO SCH (22:51)
[2018-08-16] MEDS: ACETAMINOPHEN 500 MG TAB PO SCH (22:51)
[2018-08-16 23:08] LABS: HEMATOCRIT 27.5 % (42.0-52.0)
[2018-08-16 23:25] LABS: HEMOGLOBIN 8.9 g/dl (13.5-17.5)
[2018-08-17] VITALS: BP 122/68
[2018-08-17 04:00] VITALS: BP 108/64
[2018-08-17 04:43] LABS: BASO % 0.1 % (0.0-1.0); EOS # 0.1 10^3/uL (0.0-0.50); HEMATOCRIT 23.9 % (42.0-52.0); HEMOGLOBIN 7.8 g/dl (13.5-17.5); LYMPH % 2.3 % (24.0-44.0); MEAN CORPUSCULAR HEMOGLOBIN 29.2 pg (27.0-33.0); MEAN CORPUSCULAR HGB CONC 32.6 g/dl (32.0-36.5); MEAN CORPUSCULAR VOLUME 89.5 fl (80.0-96.0); MONO # 0.6 10^3/uL (0.0-0.8); MONO % 7.9 % (0.0-5.0); NEUTROPHILS # 6.5 10^3/uL (1.8-7.7); NEUTROPHILS % 88.3 % (36.0-66.0); PLATELET COUNT, AUTOMATED 131 10^3/uL (150-450); RED BLOOD COUNT 2.67 10^6/uL (4.30-6.10); WHITE BLOOD COUNT 7.4 10^3/uL (4.0-10.0)
[2018-08-17 04:46] LABS: LYMPH # 0.2 10^3/uL (1.5-4.5)
[2018-08-17 05:00] LABS: BLOOD UREA NITROGEN 20 MG/DL (7-18); CALCIUM LEVEL 7.6 MG/DL (8.8-10.2); CARBON DIOXIDE LEVEL 25 MEQ/L (21-32); CHLORIDE LEVEL 113 MEQ/L (98-107); CREATININE FOR GFR 1.05 MG/DL (0.70-1.30); GLOMERULAR FILTRATION RATE > 60.0 (>35); GLUCOSE, FASTING 102 MG/DL (70-100); POTASSIUM SERUM 3.8 MEQ/L (3.5-5.1); SODIUM LEVEL 143 MEQ/L (136-145)
--- NOTE | 2018-08-17 05:47 | ECGEPIP ---
Stationary ECG Study [facility] - ED Test Date: 2018-08-16 Pat Name: JAMES OMALLEY Department: Room: - Gender: M [employer] Operator: : [id number] Requested By: Debbi Canela Order Number: [id number] Reading MD: Gilles Aranda Measurements Intervals Levasy Rate: 101 P: 24 MD: 162 QRS: -24 QRSD: 80 T: 58 QT: 343 QTc: 445 Interpretive Statements SINUS TACHYCARDIA WITH OCCASIONAL VENTRICULAR PREMATURE COMPLEXES WITH OCCASIONAL SUPRAVENTRICULAR PREMATURE COMPLEXES LOW QRS VOLTAGE IN PRECORDIAL LEADS NONSPECIFIC ST & T-WAVE ABNORMALITY SIMILAR TO 10/14/13 Electronically Signed On 08-17-2018 5:47:24 EDT by Gilles Aranda
[2018-08-17] MEDS: LEVOTHYROXINE 50MCG TABLET (0.05MG) PO SCH (05:52)
[2018-08-17] MEDS: ACETAMINOPHEN 500 MG TAB PO SCH ×2 (05:52→21:06)
[2018-08-17 08:00] VITALS: BP 105/62
[2018-08-17] MEDS: DOCUSATE SODIUM 100 MG CAP PO SCH ×2 (09:00→21:04)
[2018-08-17] MEDS ORDERED: ASPIRIN 81 MG ENTERIC TAB PO SCH (09:00)
[2018-08-17] MEDS ORDERED: FUROSEMIDE 40 MG/4 ML VIAL (J1940) IV SCH (09:00)
--- NOTE | 2018-08-17 09:21 | IPNPDOC ---
Subjective Date Seen The patient was seen on 08/17/18. Subjective Chief Complaint/HPI Did not have any more fever or chills yesterday. No chest pain or SOb, no abdominal pain , nausea or vomiting or diarrhea. No cough or phlegm. He denied any dizziness or light headedness. Had a bowel movement last night . Objective Physical Examination General Exam: Positive: Alert, Cooperative, No Acute Distress Eye Exam: Positive: PERRLA, Conjunctiva & lids normal, EOMI; Negative: Sclera icteric ENT Exam: Positive: Atraumatic, Mucous membr. moist/pink, Pharynx Normal Neck Exam: Positive: Supple; Negative: JVD, thyromegaly Chest Exam: Positive: Clear to auscultation, Normal air movement Heart Exam: Positive: Rate Normal, Regular Rhythm, Normal S1, Normal S2; Negative: Murmurs, Rubs Telemetry: Positive: No significant arrhythmia Abdomen Exam: Positive: Normal bowel sounds, Soft; Negative: Tenderness, Hepatospenomegaly Extremity Exam: Positive: Edema (3+ edema R>L) Skin Exam: Positive: Nl turgor and temperature; Negative: Breakdown, Lesion Psych Exam: Positive: Mental status NL, Mood NL, Memory Intact Assessment /Plan Assessment Mr. 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 Patient was in his usual state of health this morning when he went to attend mandaeism after that he and his went to have food and in the restaurant he felt nauseous went to the bathroom and while he was coming out he was shaking very badly could hardly walk and seemed like he would fall or pass out. He he say he was sleeping a lot at home and was getting more fatigued in the last 2 to 3 weeks. He serena said he had a tick bite about 3 weeks ago . He did not have any rash. In the ED he was febrile to 100.5 in the triage then it was up to 101.4 . His labs were significant for a Hb of 7.0. He was guaiac positive in the ED. He denied any overt bleeding from any where. He denied any cough or phlegm , he denied any dysuria or hematuria. He was admitted for symptomatic anemia and work up for fever and chills with hypotension in the back ground of immunocompromised state rule out sepsis. Hypotension Hypovolemic Vs sepsis. blood pressures ok overnight. patient is a frail elderly gentleman and his usual blood pressures are in 100s to 110 no tachycardia, no dizziness or light headedness, no symptoms of hypoperfusion Patient may have chronic hypotension. Fever and chills with hypotension , lactacidosis rule out Sepsis No source of infection yet determined patient has h/o tick bite 3 weeks ago will check lyme serology he had lyme disease 3 years ago. blood cultures have been ordered UA is clean with only 5 WBCs. Resp panel is negative. CXR negative, abdomen benign continue Zosyn, await blood cultures. Symptomatic anemia possibly due to cancer and radiation therapy though guaiac is positive there is no overt recent bleeding . No pasha or hemetemesis or hematochezia Patient does have gastroesophageal junction cancer . As per he has had intermittent bleeding from that but not any major bleeding. received 2 units on 08/16/18 will transfuse 1 units of prbc. 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 Prostate cancer treated with RT in 2008 deemed to be cured chronic anemia, hypothyroid continue synthroid hyperlipidemia, continue home meds hypertension stop all antihypertensives. blood pressure running low or low normal. restless legs continue ropinirole CHF { Dr Redmond}, will get echo from dr sheldon office. lasix prn Plan/VTE VTE Prophylaxis Ordered?: Yes VS, I&O, 24H, Fishbone Vital Signs/I&O Vital Signs Date Time Temp Pulse Resp B/P (MAP) Pulse Ox O2 Delivery O2 Flow Rate FiO2 08/17/18 08:00 97.8 59 18 105/62 (76) 95 08/16/18 20:00 Room Air I&O- Last 24 Hours up to 6 AM0 08/17/18 06:00 Intake Total 1550 ml Output Total 100 ml Balance 1450 ml Laboratory Data 24H LABS Laboratory Tests 2 08/16/18 11:44: 08/16/18 11:52: Immature Granulocyte % (Auto) 0.6, White Blood Count 9.0, Red Blood Count 2.32L, Hemoglobin 7.0L, Hematocrit 21.6L, Mean Corpuscular Volume 93.1, Mean Corpuscular Hemoglobin 30.2, Mean Corpuscular Hemoglobin Concent 32.4, Red Cell Distribution Width 17.2H, Platelet Count 159, Neutrophils (%) (Auto) 92.6H, Lymphocytes (%) (Auto) 1.2L, Monocytes (%) (Auto) 5.4H, Eosinophils (%) (Auto) 0.1, Basophils (%) (Auto) 0.1, Neutrophils # (Auto) 8.3H, Lymphocytes # (Auto) 0.1L, Monocytes # (Auto) 0.5, Eosinophils # (Auto) 0.0, Basophils # (Auto) 0.0, Nucleated Red Blood Cells % (auto) 0.0 08/16/18 11:53: Anion Gap 9, Glomerular Filtration Rate > 60.0, Calcium Level 8.0L, Iron Level 33L, Total Iron Binding Capacity 221L, Transferrin % Saturation 14.9L, Ferritin 31, Aspartate Amino Transf (AST/SGOT) 18, Alanine Aminotransferase (ALT/SGPT) 17, Alkaline Phosphatase 77, Total Bilirubin 0.7, Direct Bilirubin 0.2, Total Creatine Kinase 66, Creatine Kinase MB 2.0, Creatine Kinase MB Relative Index 2.73, Troponin I 0.03, Total Protein 5.4L, Albumin 2.3L, Albumin/Globulin Ratio 0.74L, Lipase 68L 08/16/18 12:03: Urine Color YELLOW, Urine Appearance HAZY, Urine pH 5.0, Urine Specific [place] 1.019, Urine Protein NEGATIVE, Urine Glucose (UA) NEGATIVE, Urine Ketones TRACEH, Urine Blood NEGATIVE, Urine Nitrite NEGATIVE, Urine Bilirubin NEGATIVE, Urine Urobilinogen 2.0H, Urine Leukocyte Esterase TRACEH, Urine WBC (Auto) 5H, Urine RBC (Auto) 5H, Urine Hyaline Casts (Auto) 0, Urine Bacteria (Auto) NEGATIVE, Urine Squamous Epithelial Cells 4, Urine Mucus (Auto) SMALL, Urine Sperm (Auto) 08/16/18 17:09: Lactic Acid Level 2.6*H 08/16/18 21:37: Lactic Acid Followup at 4 Hours 1.8 08/17/18 04:05: Immature Granulocyte % (Auto) 0.4, White Blood Count 7.4, Red Blood Count 2.67L, Hemoglobin 7.8L, Hematocrit 23.9L, Mean Corpuscular Volume 89.5, Mean Corpuscular Hemoglobin 29.2, Mean Corpuscular Hemoglobin Concent 32.6, Red Cell Distribution Width 16.7H, Platelet Count 131L, Neutrophils (%) (Auto) 88.3H, Lymphocytes (%) (Auto) 2.3L, Monocytes (%) (Auto) 7.9H, Eosinophils (%) (Auto) 1.0, Basophils (%) (Auto) 0.1, Neutrophils # (Auto) 6.5, Lymphocytes # (Auto) 0.2L, Monocytes # (Auto) 0.6, Eosinophils # (Auto) 0.1, Basophils # (Auto) 0.0, Nucleated Red Blood Cells % (auto) 0.0, Anion Gap 5L, Glomerular Filtration Rate > 60.0, Blood Urea Nitrogen 20H, Creatinine 1.05, Sodium Level 143, Potassium Level 3.8, Chloride Level 113H, Carbon Dioxide Level 25, Calcium Level 7.6L CBC/BMP Laboratory Tests 08/16/18 11:52 Red Blood Count 2.32 L, Mean Corpuscular Volume 93.1, Mean Corpuscular Hemoglobin 30.2, Mean Corpuscular Hemoglobin Concent 32.4, Red Cell Distribution Width 17.2 H, Neutrophils (%) (Auto) 92.6 H, Lymphocytes (%) (Auto) 1.2 L, Monocytes (%) (Auto) 5.4 H, Eosinophils (%) (Auto) 0.1, Basophils (%) (Auto) 0.1, Neutrophils # (Auto) 8.3 H, Lymphocytes # (Auto) 0.1 L, Monocytes # (Auto) 0.5, Eosinophils # (Auto) 0.0, Basophils # (Auto) 0.0 08/16/18 11:53 08/16/18 18:52 08/16/18 22:56 08/17/18 04:05 Red Blood Count 2.67 L, Mean Corpuscular Volume 89.5, Mean Corpuscular Hemoglobin 29.2, Mean Corpuscular Hemoglobin Concent 32.6, Red Cell Distribution Width 16.7 H, Neutrophils (%) (Auto) 88.3 H, Lymphocytes (%) (Auto) 2.3 L, Monocytes (%) (Auto) 7.9 H, Eosinophils (%) (Auto) 1.0, Basophils (%) (Auto) 0.1, Neutrophils # (Auto) 6.5, Lymphocytes # (Auto) 0.2 L, Monocytes # (Auto) 0.6, Eosinophils # (Auto) 0.1, Basophils # (Auto) 0.0, Calcium Level 7.6 L Microbiology Microbiology 08/16/18 Blood Culture, Received Pending 08/16/18 Blood Culture, Received Pending 08/16/18 Respiratory Virus Panel (PCR) ([facility]) - Final, Complete 08/16/18 Urine Culture, Received Pending BIMAL ROTH MD August 17, 2018 09:21
[2018-08-17 09:23] LABS: VITAMIN B12 LEVEL 163 PG/ML (247-911)
[2018-08-17 09:24] LABS: FOLATE 14.8 NG/ML (>5.4)
[2018-08-17] MEDS ORDERED: FUROSEMIDE 20 MG/2 ML VIAL (J1940) IV ONE (10:00)
[2018-08-17 10:13] LABS: HEMATOCRIT 24.3 % (42.0-52.0); HEMOGLOBIN 8.1 g/dl (13.5-17.5)
[2018-08-17 12:00] VITALS: BP 105/64
[2018-08-17 16:00] VITALS: BP 132/70
[2018-08-17 16:31] LABS: HEMATOCRIT 31.2 % (42.0-52.0); HEMOGLOBIN 10.2 g/dl (13.5-17.5)
[2018-08-17 20:00] VITALS: BP 150/74
[2018-08-17] MEDS: rOPINIRole 0.25 MG TAB(REQUIP) PO SCH (21:04)
[2018-08-17] MEDS: ATORVASTATIN 20 MG TAB PO SCH (21:04)
[2018-08-17 22:18] LABS: HEMATOCRIT 29.4 % (42.0-52.0); HEMOGLOBIN 9.7 g/dl (13.5-17.5)
[2018-08-18] VITALS: BP 123/75
[2018-08-18 04:00] VITALS: BP 138/70
[2018-08-18 05:22] LABS: BASO % 0.4 % (0.0-1.0); EOS # 0.2 10^3/uL (0.0-0.50); EOS % 3.5 % (0.0-3.0); HEMATOCRIT 27.6 % (42.0-52.0); HEMOGLOBIN 9.1 g/dl (13.5-17.5); LYMPH # 0.3 10^3/uL (1.5-4.5); LYMPH % 5.6 % (24.0-44.0); MEAN CORPUSCULAR HEMOGLOBIN 29.4 pg (27.0-33.0); MEAN CORPUSCULAR VOLUME 89.3 fl (80.0-96.0); MONO # 0.8 10^3/uL (0.0-0.8); MONO % 13.5 % (0.0-5.0); NEUTROPHILS # 4.4 10^3/uL (1.8-7.7); NEUTROPHILS % 76.8 % (36.0-66.0); PLATELET COUNT, AUTOMATED 120 10^3/uL (150-450); RED BLOOD COUNT 3.09 10^6/uL (4.30-6.10); WHITE BLOOD COUNT 5.7 10^3/uL (4.0-10.0)
[2018-08-18 05:41] LABS: BLOOD UREA NITROGEN 21 MG/DL (7-18); CALCIUM LEVEL 7.5 MG/DL (8.8-10.2); CARBON DIOXIDE LEVEL 25 MEQ/L (21-32); CHLORIDE LEVEL 113 MEQ/L (98-107); CREATININE FOR GFR 0.92 MG/DL (0.70-1.30); GLOMERULAR FILTRATION RATE > 60.0 (>35); GLUCOSE, FASTING 99 MG/DL (70-100); POTASSIUM SERUM 3.6 MEQ/L (3.5-5.1); SODIUM LEVEL 146 MEQ/L (136-145)
[2018-08-18] MEDS: LEVOTHYROXINE 50MCG TABLET (0.05MG) PO SCH (05:46)
[2018-08-18 08:00] VITALS: BP 134/72
[2018-08-18] MEDS: DOCUSATE SODIUM 100 MG CAP PO SCH (08:24)
[2018-08-18] MEDS: ACETAMINOPHEN 500 MG TAB PO SCH (08:25)
--- NOTE | 2018-08-18 23:45 | DS.PDOC ---
Discharge Summary General Date of Admission August 16, 2018 at 15:05 Date of Discharge 08/18/18 Discharge Summary PROCEDURES PERFORMED DURING STAY: [None]. 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 HISTORY OF PRESENT ILLNESS: See history and physical HOSPITAL COURSE: Mr. 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 Patient was in his usual state of health this morning when he went to attend bahai after that he and his went to have food and in the restaurant he felt nauseous went to the bathroom and while he was coming out he was shaking very badly could hardly walk and seemed like he would fall or pass out. He he say he was sleeping a lot at home and was getting more fatigued in the last 2 to 3 weeks. He serena said he had a tick bite about 3 weeks ago . He did not have any rash. In the ED he was febrile to 100.5 in the triage then it was up to 101.4 . His labs were significant for a Hb of 7.0. He was guaiac positive in the ED. He denied any overt bleeding from any where. He denied any cough or phlegm , he denied any dysuria or hematuria. He was admitted for symptomatic anemia and work up for fever and chills with hypotension in the back ground of immunocompromised state rule out sepsis. Hypotension Hypovolemic Vs sepsis. blood pressures ok overnight. patient is a frail elderly gentleman and his usual blood pressures are in 100s to 110 no tachycardia, no dizziness or light headedness, no symptoms of hypoperfusion Patient may have chronic hypotension. Fever and chills with hypotension , lactacidosis rule out Sepsis No source of infection determined patient has h/o tick bite 3 weeks ago will check lyme serology he had lyme disease 3 years ago. blood cultures negative till date UA is clean with only 5 WBCs. Resp panel is negative. CXR negative, abdomen benign continue Zosyn, await blood cultures. Symptomatic anemia Acute on chronic anemia Have Vit B12 deficiency and iron deficiency. possibly due to cancer and radiation therapy though guaiac is positive there is no overt recent bleeding . No pasha or hemetemesis or hematochezia So may be having slow bleeding. Patient does have gastroesophageal junction cancer . As per he has had intermittent bleeding from that but not any major bleeding. received 3 units on 08/16/18 Will order vit B12 injection s and iron supplementation. 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 Prostate cancer treated with RT in 2008 deemed to be cured Chronic anemia Vit B12 deficiency and iron deficiecncy Patient has occult blood positive. patient has a known cancer in the GE junction which could be source of slow blood loss HH stable in the hospital after blood transfusion. hypothyroid continue synthroid hyperlipidemia, continue home meds hypertension stop all antihypertensives. blood pressure running low or low normal. restless legs continue ropinirole CHF { Dr Redmond}, lasix prn DISCHARGE MEDICATIONS: Please see below. ALLERGIES: Please see below. PHYSICAL EXAMINATION ON DISCHARGE: VITAL SIGNS: Please see below. General Exam: Positive: Alert, Cooperative, No Acute Distress Eye Exam: Positive: PERRLA, Conjunctiva & lids normal, EOMI; Negative: Sclera icteric ENT Exam: Positive: Atraumatic, Mucous membr. moist/pink, Pharynx Normal Neck Exam: Positive: Supple; Negative: JVD, thyromegaly Chest Exam: Positive: Clear to auscultation, Normal air movement Heart Exam: Positive: Rate Normal, Regular Rhythm, Normal S1, Normal S2; Negative: Murmurs, Rubs Telemetry: Positive: No significant arrhythmia Abdomen Exam: Positive: Normal bowel sounds, Soft; Negative: Tenderness, Hepatospenomegaly Extremity Exam: Positive: Edema (3+ edema R>L) Skin Exam: Positive: Nl turgor and temperature; Negative: Breakdown, Lesion Psych Exam: Positive: Mental status NL, Mood NL, Memory Intact LABORATORY DATA: Please see below. ACTIVITY: [As tolerated]. DIET: as tolerated DISPOSITION: 01 Home, Self-Care. DISCHARGE INSTRUCTIONS: Follow up with PMD in 1 week ITEMS TO FOLLOWUP ON ON OUTPATIENT: Lyme disease serology Final blood culture reports. DISCHARGE CONDITION: [Stable]. TIME SPENT ON DISCHARGE: Greater than 30 minutes. Vital Signs/I&Os Vital Signs Date Time Temp Pulse Resp B/P (MAP) Pulse Ox O2 Delivery O2 Flow Rate FiO2 08/18/18 08:00 98.3 58 16 134/72 (92) 96 08/18/18 00:00 0.0 08/16/18 20:00 Room Air I&O- Last 24 Hours up to 6 AM 08/18/18 06:00 Intake Total 1300 ml Output Total 0 ml Balance 1300 ml Laboratory Data Labs 24H Laboratory Tests 2 08/18/18 04:52: Immature Granulocyte % (Auto) 0.2, White Blood Count 5.7, Red Blood Count 3.09L, Hemoglobin 9.1L, Hematocrit 27.6L, Mean Corpuscular Volume 89.3, Mean Corpuscular Hemoglobin 29.4, Mean Corpuscular Hemoglobin Concent 33.0, Red Cell Distribution Width 16.3H, Platelet Count 120L, Neutrophils (%) (Auto) 76.8H, Lymphocytes (%) (Auto) 5.6L, Monocytes (%) (Auto) 13.5H, Eosinophils (%) (Auto) 3.5H, Basophils (%) (Auto) 0.4, Neutrophils # (Auto) 4.4, Lymphocytes # (Auto) 0.3L, Monocytes # (Auto) 0.8, Eosinophils # (Auto) 0.2, Basophils # (Auto) 0.0, Nucleated Red Blood Cells % (auto) 0.0, Anion Gap 8, Glomerular Filtration Rate > 60.0, Blood Urea Nitrogen 21H, Creatinine 0.92, Sodium Level 146H, Potassium Level 3.6, Chloride Level 113H, Carbon Dioxide Level 25, Calcium Level 7.5L CBC/BMP Laboratory Tests 08/18/18 04:52 Red Blood Count 3.09 L, Mean Corpuscular Volume 89.3, Mean Corpuscular Hemoglobin 29.4, Mean Corpuscular Hemoglobin Concent 33.0, Red Cell Distribution Width 16.3 H, Neutrophils (%) (Auto) 76.8 H, Lymphocytes (%) (Auto) 5.6 L, Monocytes (%) (Auto) 13.5 H, Eosinophils (%) (Auto) 3.5 H, Basophils (%) (Auto) 0.4, Neutrophils # (Auto) 4.4, Lymphocytes # (Auto) 0.3 L, Monocytes # (Auto) 0.8, Eosinophils # (Auto) 0.2, Basophils # (Auto) 0.0, Calcium Level 7.5 L Microbiology Microbiology 08/16/18 Blood Culture - Preliminary, Resulted No Growth after 48 hours. All Specime... 08/16/18 Blood Culture - Preliminary, Resulted No Growth after 48 hours. All Specime... 08/18/18 Stool Occult Blood ([facility]) - Final, Complete 08/16/18 Respiratory Virus Panel (PCR) ([facility]) - Final, Complete 08/16/18 Urine Culture - Final, Complete Discharge Medications Scheduled Aspirin (Aspir 81) 81 Mg Tab, 81 MG PO DAILY, (Reported) Atorvastatin Calcium (Atorvastatin Calcium) 40 Mg Tablet, 40 MG PO QHS, (Reported) Esomeprazole Magnesium (Nexium) 20 Mg Capsule.dr, 20 MG PO DAILY, (Reported) Ferrous Sulfate, Dried (Slow Release Iron) 160 Mg Tablet.er, 160 MG PO DAILY, (Reported) Furosemide (Furosemide) 40 Mg Tab, 20 MG PO DAILY, (Reported) Levothyroxine Sodium (Levoxyl) 50 Mcg Tablet, 50 MCG PO DAILY, (Reported) Ropinirole HCl (Ropinirole HCl) 0.5 Mg Tab, 0.5 MG PO QHS, (Reported) Allergies Coded Allergies: No Known Allergies (Unverified , 07/13/18) BIMAL ROTH MD August 18, 2018 23:45
[2018-08-19 14:10] LABS: Lyme Disease IgG Ab 18 kDa Ban Present (.); Lyme Disease IgG Ab 23 kDa Ban Present (.); Lyme Disease IgG Ab 28 kDa Ban Absent (.); Lyme Disease IgG Ab 30 kDa Ban Absent (.); Lyme Disease IgG Ab 39 kDa Ban Present (.); Lyme Disease IgG Ab 41 kDa Ban Present (.); Lyme Disease IgG Ab 45 kDa Ban Absent (.); Lyme Disease IgG Ab 58 kDa Ban Absent (.); Lyme Disease IgG Ab 66 kDa Ban Absent (.); Lyme Disease IgG Ab 93 kDa Ban Absent (.); Lyme Disease IgG West Blot Int Negative (.); Lyme Disease IgG/IgM Antibodie 2.44 ISR (0.00-0.90); Lyme Disease IgM Ab 23 kDa Ban Absent (.); Lyme Disease IgM Ab 39 kDa Ban Absent (.); Lyme Disease IgM Ab 41 kDa Ban Absent (.); Lyme Disease IgM Ab Quantitati <0.80 index (0.00-0.79); Lyme Disease IgM West Blot Int Negative (.)
== END 2018-08-18 10:57 | disposition home or self-care (01) | DRG 315 ==
LOC: M ED 11:08 → M ED INP 15:05 → M PCU 20:20
PROVIDERS: ADMIT Internal Medicine Nephrology; ATTEND Internal Medicine Nephrology
PROC: 30233N1 Transfusion of Nonautologous Red Blood Cells into Peripheral Vein, Percutaneous Approach (ICD-10-PCS; principal; 2018-08-16)
DX: I95.89 Other hypotension (principal); E87.2 Acidosis; C16.0 Malignant neoplasm of cardia; K92.2 Gastrointestinal hemorrhage, unspecified; E86.1 Hypovolemia; D50.9 Iron deficiency anemia, unspecified; G25.81 Restless legs syndrome; I50.9 Heart failure, unspecified; I25.10 Atherosclerotic heart disease of native coronary artery without angina pectoris; E78.5 Hyperlipidemia, unspecified; E03.9 Hypothyroidism, unspecified; I25.2 Old myocardial infarction; Z85.46 Personal history of malignant neoplasm of prostate; E53.8 Deficiency of other specified B group vitamins; I11.0 Hypertensive heart disease with heart failure; Z79.82 Long term (current) use of aspirin; Z79.899 Other long term (current) drug therapy

== ENCOUNTER → 2018-09-08 | Outpatient (CLI) | payer MEDICARE, BC ==
[~2018-09-08] MED LIST changes: +ATOR40TA75 PO; +B-122500 PO; +LEVO50TA45 PO; +NEXI20CA PO; +SLOW160T8 PO
--- NOTE | 2018-09-10 17:14 | REP ---
HISTORY: Esophageal carcinoma. COMPARISON: PET/CT 03/25/2018 which showed hypermetabolic activity in the gastroesophageal junction. The latest prior CT for review is 02/25/2018. That examination is a chest, abdomen and pelvis. There are no more recent CT examinations or CT/PET examinations for comparison. After the intravenous administration of 9.22 mCi of FDG-18 triplane whole body PET/CT was performed from the skull base to the mid thigh. The intense abnormal hypermetabolic activity seen previously in the gastroesophageal junction has abated and the amount of activity seen today although hypermetabolic with a maximal SUV value of 3.75 should be considered baseline as that region is a known pitfall of increased metabolism seen on PET imaging in normal patients. This region is similar in appearance to the remainder of the gastric gomez. There is no frankly abnormal hypermetabolic activity seen in the neck, chest, abdomen or pelvis. IMPRESSION: Negative CT/PET as described above. Electronically Signed by Chaparro Person DO 09/10/2018 06:06 P
== END ==
LOC: M PLARAD 09:26
PROVIDERS: ATTEND Radiology Radiation Oncology
DX: C16.0 Malignant neoplasm of cardia (principal)
CPT/HCPCS: 78815; A9552

== ENCOUNTER 2018-09-16 08:45 | Outpatient (CLI) | payer MEDICARE, BC ==
[~2018-09-16] VITALS: Ht 167.1 cm; Wt 69.9 kg
[~2018-09-16 08:45] MED LIST changes: -B-122500 PO
[2018-09-16 08:50] VITALS: BP 111/55
[2018-09-16] MEDS ORDERED: FUROSEMIDE 40 MG/4 ML VIAL (J1940) IV ONE (09:00)
[2018-09-16] MEDS ORDERED: B-122500 PO (09:42)
[2018-09-16 14:50] VITALS: BP 124/62
[2018-09-16 15:35] VITALS: BP 122/64
== END 2018-09-16 15:35 | disposition home or self-care (01) ==
LOC: M INFU 08:45
PROVIDERS: ATTEND Family Medicine
DX: D64.9 Anemia, unspecified (principal)

== ENCOUNTER 2018-09-17 15:15 | Inpatient (IN) | payer MEDICARE, BC ==
[~2018-09-17] VITALS: Ht 170.2 cm; Wt 67.0 kg
[~2018-09-17 15:15] MED LIST changes: +B-122500 PO
[2018-09-17] MEDS ORDERED: NS 1,000 ML IV SCH (15:29)
[2018-09-17] MEDS ORDERED: ACETAMINOPHEN TAB 650MG DOSE (2X325MG) PO ONE (15:45)
[2018-09-17 15:54] LABS: BASO % 0.1 % (0.0-1.0); EOS % 0.1 % (0.0-3.0); HEMATOCRIT 26.7 % (42.0-52.0); HEMOGLOBIN 8.9 g/dl (13.5-17.5); LYMPH % 0.6 % (24.0-44.0); MEAN CORPUSCULAR HEMOGLOBIN 31.1 pg (27.0-33.0); MEAN CORPUSCULAR HGB CONC 33.3 g/dl (32.0-36.5); MEAN CORPUSCULAR VOLUME 93.4 fl (80.0-96.0); MONO # 0.2 10^3/uL (0.0-0.8); MONO % 1.7 % (0.0-5.0); NEUTROPHILS # 11.1 10^3/uL (1.8-7.7); NEUTROPHILS % 97.2 % (36.0-66.0); PLATELET COUNT, AUTOMATED 142 10^3/uL (150-450); RED BLOOD COUNT 2.86 10^6/uL (4.30-6.10); WHITE BLOOD COUNT 11.4 10^3/uL (4.0-10.0)
--- NOTE | 2018-09-17 16:03 | REP ---
CT Head without contrast HISTORY: Altered mental status COMPARISON: 08/16/2018 Areas of decreased attenuation are present in the periventricular white matter. This represents small-vessel ischemic disease. There is no intraparenchymal hemorrhage, acute infarct, mass or midline shift. The ventricular system the ventricular system and cortical sulci are dilated consistent with moderate volume loss. There is no extra cerebral collection. There is no fracture. The visualized sinuses are clear. IMPRESSION: Small-vessel ischemic disease. 2. Moderate volume loss. Electronically Signed by Venu Galdamez MD 09/17/2018 03:54 P
--- NOTE | 2018-09-17 16:05 | REP ---
AP sitting chest x-ray: Single view. History: Altered mental status. Comparison study: August 16, 2018. Findings: EKG monitoring electrodes overlie the chest. The lungs are symmetrically aerated and free of infiltrate. The pleural angles are sharp. Cardiomediastinal silhouette is unremarkable. No acute bony abnormality. Impression: No active disease. Electronically Signed by Cole Betancourt MD 09/17/2018 03:57 P
[2018-09-17 16:17] LABS: LYMPH # 0.1 10^3/uL (1.5-4.5)
[2018-09-17 16:28] LABS: ACETAMINOPHEN LEVEL < 2.0 UG/ML (10.0-30.0); ALBUMIN 2.5 GM/DL (3.2-5.2); ALT/SGPT 17 U/L (12-78); BILIRUBIN,DIRECT 0.2 MG/DL (0.0-0.2); BILIRUBIN,TOTAL 0.5 MG/DL (0.2-1.0); BLOOD UREA NITROGEN 42 MG/DL (7-18); CARBON DIOXIDE LEVEL 22 MEQ/L (21-32); CHLORIDE LEVEL 110 MEQ/L (98-107); CK-MB VALUE MASS 1.3 NG/ML (<3.6); CPK CREATINE PHOSPHOKINASE 50 U/L (39-308); CREATININE FOR GFR 1.21 MG/DL (0.70-1.30); GLOMERULAR FILTRATION RATE > 60.0 (>35); GLUCOSE, FASTING 164 MG/DL (70-100); POTASSIUM SERUM 4.1 MEQ/L (3.5-5.1); SALICYLATE LEVEL < 1.7 MG/DL (5.0-30.0); SODIUM LEVEL 142 MEQ/L (136-145); TOTAL PROTEIN 5.3 GM/DL (6.4-8.2); TROPONIN I 0.03 NG/ML (< 0.10)
[2018-09-17] MEDS ORDERED: NS 1,000 ML IV ONE (16:30)
[2018-09-17 16:59] LABS: INR 1.12; PROTHROMBIN TIME 14.6 SECONDS (12.1-14.4)
[2018-09-17] MEDS ORDERED: LIDOCAINE 2% 5ML JELLY UROJET TOP ONE (17:00)
[2018-09-17 17:48] LABS: AMPHETAMINES LEVEL URINE NEGATIVE (NEGATIVE); BARBITURATES URINE NEGATIVE (NEGATIVE); BENZODIAZEPINES URINE NEGATIVE (NEGATIVE); CANNABINOIDS URINE NEGATIVE (NEGATIVE); COCAINE METABOLITE URINE NEGATIVE (NEGATIVE); METHADONE URINE NEGATIVE (NEGATIVE); OPIATES URINE NEGATIVE (NEGATIVE); PHENCYCLIDINE URINE NEGATIVE (NEGATIVE)
--- NOTE | 2018-09-17 20:27 | HPE ---
DATE OF ADMISSION: 09/17/2018 PRIMARY CARE PROVIDER: Dr. Nick Riddle ONCOLOGIST: Dr. Robledo PAINT DIPPER: Dr. Zhang CHIEF COMPLAINT: Confusion. HISTORY OF THE PRESENT ILLNESS: The patient is an 83-year-old white male with several chronic medical conditions listed below, came to the emergency room (ER) for evaluation of above complaints. The history is provided by himself as well as by the . Per the patient, back to last March he was found to have esophageal cancer, which was treated with radiation therapy. He did pretty well, per , and he had a PET scan done 2 weeks ago and was told his cancer is gone. He also has iron deficiency anemia, which he received three packs of red blood cell (RBC) transfusion back to August 16, 2018. Yesterday he received another two units of red blood cell transfusion due to his hemoglobin down to [address] Riddle. After transfusion, he was doing fine. This morning, the found the patient was very weak, and he is confused and the patient was not himself. He was brought to the ER for further evaluation. In the ER, he was found to have soft blood pressure, and his temperature was up to 100.3, and his workup in the ER was not significant. Medicine service was called for admission. REVIEW OF SYSTEMS: Denies fever. No chills. No headache. No blurred vision. No shortness of breath. No chest pain. No abdominal pain. No nausea, no vomiting. No diarrhea. Positive black stool sometimes. All other systems reviewed but negative. PAST MEDICAL HISTORY: 1. Esophageal cancer, status post radiation therapy. 2. Iron deficiency anemia, status post transfusion. 3. Prostate cancer, status post radiation therapy. 4. Coronary artery disease, status post myocardial infarction (AL). 5. Diastolic congestive heart failure (CHF). 6. Hypertension, but he does not take any antihypertensive medication anymore. 7. Dyslipidemia. 8. Acid reflux. PAST SURGICAL HISTORY: Left hip replacement. ALLERGIES: No known drug allergies. SOCIAL HISTORY: Denies tobacco use. Denies alcohol use. Denies illicit drug abuse. He lives at home with his , and he is do not resuscitate. FAMILY HISTORY: His brother had a heart attack. MEDICATIONS: Reviewed. PHYSICAL EXAMINATION: VITAL SIGNS: Temperature 100.3, heart rate 91, respirations 16, blood pressure 86/50, oxygen saturation (O2 sat) is 95% on room air. GENERAL: He is awake, alert, oriented times three. He is not in acute distress. HEENT: Atraumatic. Pupils equal, round, reactive to light. No jaundice. Extraocular muscles intact. Ear, nose, throat: Normal. Mouth: Mucosa a little dry. NECK: No jugular venous distention (JVD), no bruits. LUNGS: Clear. No wheezing, no crackles. HEART: S1, S2, regular. Mild tachycardia. No murmur. ABDOMEN: Soft. Bowel sound positive. Nontender. LOWER EXTREMITIES: No edema in bilateral lower extremities. NEUROLOGIC: Nonfocal. SKIN: No rash. PSYCHOLOGICAL: No acute psychosis. DIAGNOSTIC AND LAB STUDIES: CBC and differential showed WBC 11.4, hemoglobin and hematocrit 8.9 over 26.7, platelets 142. Sodium 142, potassium is 4.1, chloride 110, bicarbonate 22, BUN 24, creatinine 0.2, glucose 164, lactic acid is 3.8. Chest x-ray: Unremarkable. Head CT was unremarkable. IMPRESSION: 1. Altered mental status. 2. Mild sepsis. 3. Esophageal cancer, status post radiation therapy. 4. Iron deficiency anemia secondary to gastrointestinal (GI) bleed. 5. History of coronary artery disease. 6. History of diastolic congestive heart failure. PLAN: The patient will be admitted to medical-surgical floor. He has sepsis with a low-grade fever, mild tachycardia and low blood pressure. But the infectious source is not clear and his chest x-ray is normal without pneumonia, his urinalysis (UA) is normal without urinary tract infection (UTI), and will treat him with intravenous (IV) Levaquin and follow cultures. Will continue IV fluid. He has ongoing GI bleed, and Dr. Zhang needs to be called for consultation for the scope. RICHARD
[2018-09-17 22:00] VITALS: BP 90/50
[2018-09-17] MEDS: LevoFLOXacin IV 500 MG in APPROPRIATE DILUENT 1 EA IV SCH (22:17)
[2018-09-17] MEDS: ATORVASTATIN 20 MG TAB PO SCH (22:18)
[2018-09-17] MEDS: NS 1,000 ML IV SCH (22:19)
[2018-09-17] MEDS: rOPINIRole 0.25 MG TAB(REQUIP) PO SCH (22:19)
[2018-09-17] MEDS: PANTOPRAZOLE 40MG INJ (PROTONIX) (C9113) IV SCH (22:33)
[2018-09-18 02:00] VITALS: BP 119/69
[2018-09-18] MEDS: NS 1,000 ML IV SCH (04:57)
[2018-09-18] MEDS: LEVOTHYROXINE 50MCG TABLET (0.05MG) PO SCH (05:25)
[2018-09-18 06:00] VITALS: BP 95/58
[2018-09-18 06:04] LABS: HEMATOCRIT 23.7 % (42.0-52.0); HEMOGLOBIN 7.7 g/dl (13.5-17.5); MEAN CORPUSCULAR HEMOGLOBIN 30.2 pg (27.0-33.0); MEAN CORPUSCULAR HGB CONC 32.5 g/dl (32.0-36.5); MEAN CORPUSCULAR VOLUME 92.9 fl (80.0-96.0); PLATELET COUNT, AUTOMATED 140 10^3/uL (150-450); RED BLOOD COUNT 2.55 10^6/uL (4.30-6.10); WHITE BLOOD COUNT 18.5 10^3/uL (4.0-10.0)
[2018-09-18 06:30] LABS: BLOOD UREA NITROGEN 36 MG/DL (7-18); CALCIUM LEVEL 7.9 MG/DL (8.8-10.2); CARBON DIOXIDE LEVEL 25 MEQ/L (21-32); CHLORIDE LEVEL 114 MEQ/L (98-107); CREATININE FOR GFR 0.93 MG/DL (0.70-1.30); GLOMERULAR FILTRATION RATE > 60.0 (>35); GLUCOSE, FASTING 100 MG/DL (70-100); POTASSIUM SERUM 4.3 MEQ/L (3.5-5.1); SODIUM LEVEL 144 MEQ/L (136-145)
[2018-09-18] MEDS: PANTOPRAZOLE 40MG INJ (PROTONIX) (C9113) IV SCH ×2 (08:09→22:45)
[2018-09-18] MEDS: CYANOCOBALAMIN 500 MCG TAB PO SCH (08:09)
[2018-09-18] MEDS ORDERED: D5W/0.9% SODIUM CHLORIDE 1,000 ML IV SCH (10:00)
--- NOTE | 2018-09-18 10:36 | IPNPDOC ---
Subjective Date Seen The patient was seen on 09/18/18. Subjective Chief Complaint/HPI Does not have any complaints this morning. Says he was sick yesterday so his called the ambulance. Had breakfast this am without any issues. Had low grade fever yesterday. No fever or chills this am. Objective Physical Examination General Exam: Positive: Alert, Cooperative, No Acute Distress Eye Exam: Positive: PERRLA, Conjunctiva & lids normal, EOMI; Negative: Sclera icteric ENT Exam: Positive: Atraumatic, Mucous membr. moist/pink, Pharynx Normal Neck Exam: Positive: Supple; Negative: JVD, thyromegaly Chest Exam: Positive: Clear to auscultation, Normal air movement Heart Exam: Positive: Rate Normal, Regular Rhythm, Normal S1, Normal S2; Negative: Murmurs, Rubs Abdomen Exam: Positive: Normal bowel sounds, Soft; Negative: Tenderness, Hepatospenomegaly Extremity Exam: Positive: Normal pulses; Negative: Clubbing, Cyanosis, Edema Assessment /Plan Assessment Mr. 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 on 09/16 he was found to be anemic again by his PMD and received 2 units of prbc. He did pretty well, per , and he had a PET scan done 2 weeks ago and was told his cancer is gone. He also has iron deficiency anemia, which he received three packs of red blood cell (RBC) transfusion back to August 16, 2018. Yesterday he received another two units of red blood cell transfusion due to his hemoglobin down to [address] Riddle. After transfusion, he was doing fine. on 09/17 morning the found the patient was very weak, and he is confused and the patient was not himself. He was brought to the ER for further evaluation. He was admittd for possible sepsis, anemia form GIB and metabolic encephalopathy. Possible sepsis lactate elevated on admission, wbc elevated, had low grade fever. No source of infection yet found , CXR clear, abdomen benign, UA clean awaiting blood cultures continue with levofloxcin. Anemia acute on chronic blood loss anemia also iron deficiency and vit B12 deficiency anemia. received 5 units in the past 1 month. Guaiac was positive. iron deficiency will Get GI for possible EGD to look for any source of bleeding. 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 finished external beam radiation therapy for palliation of his swallowing issues PET scan on 09/08 was negative. following with Radiation oncology does not seem to have astrid medication oncologist. Prostate cancer treated with RT in 2008 deemed to be cured hypothyroid continue synthroid hyperlipidemia, continue home meds hypertension stop all antihypertensives. blood pressure running low or low normal. restless legs continue ropinirole CHF { Dr Redmond}, lasix prn Plan/VTE VTE Prophylaxis Ordered?: Yes VS, I&O, 24H, [facility] Vital Signs/I&O Vital Signs Date Time Temp Pulse Resp B/P (MAP) Pulse Ox O2 Delivery O2 Flow Rate FiO2 09/18/18 06:00 97.8 78 18 95/58 (70) 96 09/17/18 21:30 Room Air I&O- Last 24 Hours up to 6 AM 09/18/18 06:00 Intake Total 3350 ml Output Total 450 ml Balance 2900 ml Laboratory Data 24H LABS Laboratory Tests 2 09/17/18 15:34: Immature Granulocyte % (Auto) 0.3, White Blood Count 11.4H, Red Blood Count 2.86L, Hemoglobin 8.9L, Hematocrit 26.7L, Mean Corpuscular Volume 93.4, Mean Corpuscular Hemoglobin 31.1, Mean Corpuscular Hemoglobin Concent 33.3, Red Cell Distribution Width 15.6H, Platelet Count 142L, Neutrophils (%) (Auto) 97.2H, Lymphocytes (%) (Auto) 0.6L, Monocytes (%) (Auto) 1.7, Eosinophils (%) (Auto) 0.1, Basophils (%) (Auto) 0.1, Neutrophils # (Auto) 11.1H, Lymphocytes # (Auto) 0.1L, Monocytes # (Auto) 0.2, Eosinophils # (Auto) 0.0, Basophils # (Auto) 0.0, Nucleated Red Blood Cells % (auto) 0.3H, Urine Color YELLOW, Urine Appearance CLEAR, Urine pH 5.0, Urine Specific [place] 1.019, Urine Protein NEGATIVE, Urine Glucose (UA) NEGATIVE, Urine Ketones NEGATIVE, Urine Blood NEGATIVE, Urine Nitrite NEGATIVE, Urine Bilirubin NEGATIVE, Urine Urobilinogen 0.2, Urine Leukocyte Esterase TRACEH, Urine WBC (Auto) 2, Urine RBC (Auto) 2, Urine Hyaline Casts (Auto) 0, Urine Bacteria (Auto) NEGATIVE, Urine Squamous Epithelial Cells 1, Urine Mucus (Auto) SMALL, Urine Sperm (Auto) , Anion Gap 10, Glomerular Filtration Rate > 60.0, Lactic Acid Level 3.8*H, Calcium Level 8.0L, Aspartate Amino Transf (AST/SGOT) 17, Alanine Aminotransferase (ALT/SGPT) 17, Alkaline Phosphatase 74, Total Bilirubin 0.5, Direct Bilirubin 0.2, Total Creatine Kinase 50, Creatine Kinase MB 1.3, Creatine Kinase MB Relative Index 2.60, Troponin I 0.03, Total Protein 5.3L, Albumin 2.5L, Albumin/Globulin Ratio 0.89L, Thyroid Stimulating Hormone (TSH) 3.330, Salicylates Level < 1.7L, Urine Amphetamines S creen NEGATIVE, Urine Benzodiazepines Screen NEGATIVE, Urine Opiates Screen NEGATIVE, Urine Methadone Screen NEGATIVE, Acetaminophen Level < 2.0L, Urine Barbiturates Screen NEGATIVE, Urine Phencyclidine Screen NEGATIVE, Urine Cocaine Metabolite Screen NEGATIVE, Urine Cannabinoids Screen NEGATIVE 09/17/18 16:41: Prothrombin Time 14.6H, Prothromb Time International Ratio 1.12 09/17/18 20:12: Lactic Acid Followup at 4 Hours 1.6 09/18/18 05:22: Nucleated Red Blood Cells % (auto) 0.0, Anion Gap 5L, Glomerular Filtration Rate > 60.0, Calcium Level 7.9L, Blood Urea Nitrogen 36H, Creatinine 0.93, Sodium Level 144, Potassium Level 4.3, Chloride Level 114H, Carbon Dioxide Level 25 CBC/BMP Laboratory Tests 09/17/18 15:34 Red Blood Count 2.86 L, Mean Corpuscular Volume 93.4, Mean Corpuscular Hemoglobin 31.1, Mean Corpuscular Hemoglobin Concent 33.3, Red Cell Distribution Width 15.6 H, Neutrophils (%) (Auto) 97.2 H, Lymphocytes (%) (Auto) 0.6 L, Monocytes (%) (Auto) 1.7, Eosinophils (%) (Auto) 0.1, Basophils (%) (Auto) 0.1, Neutrophils # (Auto) 11.1 H, Lymphocytes # (Auto) 0.1 L, Monocytes # (Auto) 0.2, Eosinophils # (Auto) 0.0, Basophils # (Auto) 0.0 09/18/18 05:22 Red Blood Count 2.55 L, Mean Corpuscular Volume 92.9, Mean Corpuscular Hemoglobin 30.2, Mean Corpuscular Hemoglobin Concent 32.5, Red Cell Distribution Width 15.8 H, Calcium Level 7.9 L Microbiology Microbiology 09/17/18 Blood Culture, Received Pending 09/17/18 Urine Culture, Received Pending BIMAL ROTH MD Sep 18, 2018 10:16
--- NOTE | 2018-09-18 13:16 | ECGEPIP ---
[facility] - ED Test Date: 2018-09-17 Pat Name: JAMES OMALLEY Department: Room: - Gender: Male Sternman: : 1935 Requested By: ESMER STEELE Order Number: [id number] Reading MD: Gilles Aranda Measurements Intervals Lydia Rate: 97 P: 55 SD: 172 QRS: QRSD: 87 T: 50 QT: 330 QTc: 421 Interpretive Statements SINUS RHYTHM WITH OCCASIONAL VENTRICULAR PREMATURE COMPLEXES WITH OCCASIONAL SUPRAVENTRICULAR PREMATURE COMPLEXES SIMILAR TO 08/16/18 Electronically Signed on 09-18-2018 13:16:44 EDT by Gilles Aranda
[2018-09-18 13:24] LABS: HEMATOCRIT 26.8 % (42.0-52.0); HEMOGLOBIN 8.5 g/dl (13.5-17.5)
[2018-09-18 14:00] VITALS: BP_SYST 128; BP_SYST 144; BP_DIAS 60; BP_DIAS 70
[2018-09-18] MEDS: SUCRALFATE 1 GM TAB PO SCH ×2 (17:36→22:44)
[2018-09-18 17:56] LABS: HEMATOCRIT 27.9 % (42.0-52.0); HEMOGLOBIN 9.1 g/dl (13.5-17.5); MEAN CORPUSCULAR HEMOGLOBIN 30.7 pg (27.0-33.0); MEAN CORPUSCULAR HGB CONC 32.6 g/dl (32.0-36.5); MEAN CORPUSCULAR VOLUME 94.3 fl (80.0-96.0); PLATELET COUNT, AUTOMATED 123 10^3/uL (150-450); RED BLOOD COUNT 2.96 10^6/uL (4.30-6.10); WHITE BLOOD COUNT 12.5 10^3/uL (4.0-10.0)
--- NOTE | 2018-09-18 18:30 | CR.PDOC ---
General Date of Consultation: Sep 18, 2018 Referring Provider: BIMAL MARKS MD Attending Physician: ZHEN NETTLES MD Consultation Primary physician/ hospitalist: Dr. Marks and Dr. Zhang Reason for consult: Recurrent drop in hemoglobin and hematocrit. 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 Zhang), and later finished external beam radiation therapy in June 2018 ( seen Dr. Avelar, did not see any oncologist), Prostate cancer treated with RT in 2008, iron deficiency anemia was previously admitted in August 2018 for symptomatic anemia and received 3 units of PRBC, and again on 09/16 he received 2 units as outpatient though his PCP clinic, now presented to ER for complaints of shakiness and confusion. Patient is again noted to have slight decrease in hemoglobin but had elevated WBC. Patient was admitted for possible sepsis and GI bleeding. GI was consulted for the same. Patient reports having acute onset shakiness and generalized weakness with confusion, yesterday afternoon, when patients called EMS and was brought to ER. Patient's reports he had similar symptoms in past as well and reports he took lasix 40 mg dose and went outside to do some work prior to these symptoms onset. Patient does report having increased urinary frequency after taking lasix but denies any burning with urination, fever, chills, cough, shortness of breath, dark stools or blood in stools. Pertinent negative GI symptoms: Patient denies nausea, vomiting, diarrhea, abdominal pain, loss of appetite, early satiety or unintentional weight loss. No history of hematemesis, melena or hematochezia. Patient reports regular bowel movements. Review of Systems: GI: as stated above CVS: No chest pain, No palpitations, No leg swelling. 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 Skin: No rash : No hematuria, No burning sensation of the urine ENT: No ear discharge/ pain, No dysphagia. Eyes: No photophobia. Home medications: reviewed. Anti-thrombotic agents - None Medical h/o: As above. Surgical h/o: None on abdomen. Social h/o: Alcohol- Denies, tobacco-Denies , IVDA/ drugs- Denies . Family h/o of GI cancers - Non- contributory. Prior Endoscopies: --- EGD - Done in Feb 2018, by Dr. Zhang, for [facility] -- noted with gastric cardia mass, biopsy showed poorly differentiated adenocarcinoma. --- Colonoscopy - Done in Feb 2018, by Dr. Zhang, for [facility] -- noted with Diverticulosis and hemorrhodis. No polyps. Prior GI evaluation: Follows with Dr. Zhang. Exam: Vitals: reviewed General: Alert and oriented x 3, not in distress HEENT: NO pallor, no icterus. Normal oropharynx, NO cervical lymph nodes. Chest: symmetric with bilateral clear air entry, CVS: S1, S2 heard, normal, no murmurs . Abdomen: non-distended, no surgical scars, soft, non-tender, no palpable masses, normal bowel sounds heard. Rectal exam: Patient refused / Deferred at this time in view of scheduled colonoscopy. Extremities: no pedal edema, pulses palpable. 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 Moves all extremities Skin: no rash. Labs: reviewed. Imaging tests: reviewed OFF note: Prior PET scan done in 2018 - as outpatient - was negative. Impression: - Drop in hemoglobin and hematocrit, without overt external bleeding and prior history of GE junction. gastric cardia mass -- poorly differentiated adenocarcinoma, treated with Radiation therapy ( last PET scan in September 2018 - negative) -- DDx-- AVMs bleeding vs PUD vs Gastritis vs esophagitis vs residual tumor bleeding. - Altered mental status, shakiness with elevated lactic acid and WBC -- DDx -- rule out sepsis vs Dehydration from lasix vs metabolic encephalopathy. Recommendations: - Patient educated about the test results, possible differential diagnoses and All questions answered. - Septic work up as per primary team. - IV pantoprazole 40 mg twice daily. - Monitor and correct electrolytes. - Consider tapering down the home dose of lasix depending of patients fluid status. (consider reviewing with watch crystal molder electively for further dose adjustment). - Will schedule for EGD tomorrow. - NPO after 12 midnight. - The procedure, indications, risks (bleeding, perforation, infection, hypotension, respiratory depression, allergy, need for endotracheal intubation, surgery, colostomy, cardiac arrest, even ), benefits, limitations (e.g., missing a lesion), and all other alternatives (including no intervention) were explained to the patient who understood and agreed for the procedure. Plan of care discussed with patient and primary team. Patient verbalized understanding and agreed with the plan. Vital Signs/I&O Vital Signs Date Time Temp Pulse Resp B/P (MAP) Pulse Ox O2 Delivery O2 Flow Rate FiO2 09/18/18 14:00 09/17/18 21:30 Room Air I&O- Last 24 Hours up to 6 AM 09/18/18 06:00 Intake Total 3350 ml Output Total 450 ml Balance 2900 ml Laboratory Data Labs 24H Laboratory Tests 2 09/17/18 20:12: Lactic Acid Followup at 4 Hours 1.6 09/18/18 05:22: Nucleated Red Blood Cells % (auto) 0.0, Anion Gap 5L, Glomerular Filtration Rate > 60.0, Blood Urea Nitrogen 36H, Creatinine 0.93, Sodium Level 144, Potassium Level 4.3, Chloride Level 114H, Carbon Dioxide Level 25, Calcium Level 7.9L 09/18/18 17:50: Nucleated Red Blood Cells % (auto) 0.0 CBC/BMP Laboratory Tests 09/18/18 05:22 Red Blood Count 2.55 L, Mean Corpuscular Volume 92.9, Mean Corpuscular Hemoglobin 30.2, Mean Corpuscular Hemoglobin Concent 32.5, Red Cell Distribution Width 15.8 H, Calcium Level 7.9 L 09/18/18 13:13 09/18/18 17:50 Red Blood Count 2.96 L, Mean Corpuscular Volume 94.3, Mean Corpuscular Hemoglobin 30.7, Mean Corpuscular Hemoglobin Concent 32.6, Red Cell Distribution Width 16.8 H Microbiology Microbiology 09/17/18 Blood Culture, Received Pending 09/17/18 Urine Culture - Final, Complete Allergies Coded Allergies: No Known Allergies (Unverified , 07/13/18) Home Medications Scheduled Aspirin (Aspir 81) 81 Mg Tab, 81 MG PO DAILY, (Reported) Atorvastatin Calcium (Atorvastatin Calcium) 40 Mg Tablet, 40 MG PO QHS, (Reported) Cyanocobalamin (Vitamin B-12) (Vitamin B12) 2,500 Mcg Tablet, 2,500 MCG PO DAILY, (Reported) Esomeprazole Magnesium (Nexium) 20 Mg Capsule.dr, 20 MG PO DAILY, (Reported) Ferrous Sulfate, Dried (Slow Release Iron) 160 Mg Tablet.er, 160 MG PO DAILY, (Reported) Furosemide (Furosemide) 40 Mg Tab, 20 MG PO DAILY, (Reported) Levothyroxine Sodium (Levoxyl) 50 Mcg Tablet, 50 MCG PO DAILY, (Reported) Ropinirole HCl (Ropinirole HCl) 0.5 Mg Tab, 0.5 MG PO QHS, (Reported) ZHEN NETTLES MD Sep 18, 2018 18:30
[2018-09-18 22:00] VITALS: BP_SYST 111; BP_SYST 132; BP_DIAS 59; BP_DIAS 81
[2018-09-18] MEDS: rOPINIRole 0.25 MG TAB(REQUIP) PO SCH (22:44)
[2018-09-18] MEDS: ATORVASTATIN 20 MG TAB PO SCH (22:44)
[2018-09-18] MEDS: LevoFLOXacin IV 500 MG in APPROPRIATE DILUENT 1 EA IV SCH (22:45)
[2018-09-19] VITALS (8 sets, daily range): BP systolic 116–147; BP diastolic 66–78
[2018-09-19 00:15] LABS: HEMATOCRIT 26.6 % (42.0-52.0); HEMOGLOBIN 8.5 g/dl (13.5-17.5)
[2018-09-19] MEDS: LEVOTHYROXINE 50MCG TABLET (0.05MG) PO SCH (05:47)
[2018-09-19 06:32] LABS: BASO % 0.2 % (0.0-1.0); EOS # 0.2 10^3/uL (0.0-0.50); EOS % 2.1 % (0.0-3.0); HEMATOCRIT 26.5 % (42.0-52.0); HEMOGLOBIN 8.5 g/dl (13.5-17.5); LYMPH # 0.3 10^3/uL (1.5-4.5); MEAN CORPUSCULAR HEMOGLOBIN 29.1 pg (27.0-33.0); MEAN CORPUSCULAR HGB CONC 32.1 g/dl (32.0-36.5); MEAN CORPUSCULAR VOLUME 90.8 fl (80.0-96.0); MONO # 0.9 10^3/uL (0.0-0.8); MONO % 9.9 % (0.0-5.0); NEUTROPHILS # 7.2 10^3/uL (1.8-7.7); NEUTROPHILS % 84.4 % (36.0-66.0); PLATELET COUNT, AUTOMATED 135 10^3/uL (150-450); RED BLOOD COUNT 2.92 10^6/uL (4.30-6.10); WHITE BLOOD COUNT 8.6 10^3/uL (4.0-10.0)
[2018-09-19] MEDS: SUCRALFATE 1 GM TAB PO SCH ×4 (07:30→20:35)
[2018-09-19] MEDS: CYANOCOBALAMIN 500 MCG TAB PO SCH (08:38)
[2018-09-19] MEDS: PANTOPRAZOLE 40MG INJ (PROTONIX) (C9113) IV SCH ×2 (08:38→20:34)
--- NOTE | 2018-09-19 08:45 | IPNPDOC ---
Subjective Date Seen The patient was seen on 09/19/18. Subjective Chief Complaint/HPI No complaints this morning. No blood noted in stool , no chest pain or sob , no dizziness or light hadedness though a little unsteady on his feet. Objective Physical Examination General Exam: Positive: Alert, Cooperative, No Acute Distress Eye Exam: Positive: PERRLA, Conjunctiva & lids normal, EOMI; Negative: Sclera icteric ENT Exam: Positive: Atraumatic, Mucous membr. moist/pink, Pharynx Normal Neck Exam: Positive: Supple; Negative: JVD, thyromegaly Chest Exam: Positive: Clear to auscultation, Normal air movement Heart Exam: Positive: Rate Normal, Regular Rhythm, Normal S1, Normal S2; Negative: Murmurs, Rubs Abdomen Exam: Positive: Normal bowel sounds, Soft; Negative: Tenderness, Hepatospenomegaly Extremity Exam: Positive: Normal pulses; Negative: Clubbing, Cyanosis, Edema Assessment /Plan Assessment Mr. 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 on 09/16 he was found to be anemic again by his PMD and received 2 units of prbc. He did pretty well, per , and he had a PET scan done 2 weeks ago and was told his cancer is gone. He also has iron deficiency anemia, which he received three packs of red blood cell (RBC) transfusion back to August 16, 2018. Yesterday he received another two units of red blood cell transfusion due to his hemoglobin down to [address] Riddle. After transfusion, he was doing fine. on 09/17 morning the found the patient was very weak, and he is confused and the patient was not himself. He was brought to the ER for further evaluation. He was admittd for possible sepsis, anemia form GIB and metabolic encephalopathy. Possible sepsis No source of infection found it could be dehydration and reactive too. lactate elevated on admission, wbc elevated, had low grade fever. CXR clear, abdomen benign, UA clean awaiting blood cultures continue with levofloxcin. Anemia acute on chronic blood loss anemia also iron deficiency and vit B12 deficiency anemia. received 5 units in the past 1 month. Guaiac was positive. iron deficiency GI for possible EGD to look for any source of bleeding. 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 finished external beam radiation therapy for palliation of his swallowing issues PET scan on 09/08 was negative. following with Radiation oncology does not seem to have astrid medication oncologist. Prostate cancer treated with RT in 2008 deemed to be cured hypothyroid continue synthroid hyperlipidemia, continue home meds hypertension stop all antihypertensives. blood pressure running low or low normal. restless legs continue ropinirole CHF { Dr Redmond}, lasix prn Plan/VTE VTE Prophylaxis Ordered?: Yes VS, I&O, 24H, Fishbone Vital Signs/I&O Vital Signs Date Time Temp Pulse Resp B/P (MAP) Pulse Ox O2 Delivery O2 Flow Rate FiO2 09/18/18 22:00 97.1 70 15 111/59 (76) 97 09/17/18 21:30 Room Air I&O- Last 24 Hours up to 6 AM 09/19/18 06:00 Intake Total 1843 ml Output Total 450 ml Balance 1393 ml Laboratory Data 24H LABS Laboratory Tests 2 09/18/18 17:50: Nucleated Red Blood Cells % (auto) 0.0 09/19/18 05:23: Nucleated Red Blood Cells % (auto) 0.0, Immature Granulocyte % (Auto) 0.4, White Blood Count 8.6, Red Blood Count 2.92L, Hemoglobin 8.5L, Hematocrit 26.5L, Mean Corpuscular Volume 90.8, Mean Corpuscular Hemoglobin 29.1, Mean Corpuscular Hemoglobin Concent 32.1, Red Cell Distribution Width 16.8H, Platelet Count 135L, Neutrophils (%) (Auto) 84.4H, Lymphocytes (%) (Auto) 3.0L, Monocytes (%) (Auto) 9.9H, Eosinophils (%) (Auto) 2.1, Basophils (%) (Auto) 0.2, Neutrophils # (Auto) 7.2, Lymphocytes # (Auto) 0.3L, Monocytes # (Auto) 0.9H, Eosinophils # (Auto) 0.2, Basophils # (Auto) 0.0 CBC/BMP Laboratory Tests 09/18/18 13:13 09/18/18 17:50 Red Blood Count 2.96 L, Mean Corpuscular Volume 94.3, Mean Corpuscular Hemoglobin 30.7, Mean Corpuscular Hemoglobin Concent 32.6, Red Cell Distribution Width 16.8 H 09/18/18 23:48 09/19/18 05:23 Red Blood Count 2.92 L, Mean Corpuscular Volume 90.8, Mean Corpuscular Hemoglobin 29.1, Mean Corpuscular Hemoglobin Concent 32.1, Red Cell Distribution Width 16.8 H, Neutrophils (%) (Auto) 84.4 H, Lymphocytes (%) (Auto) 3.0 L, Monocytes (%) (Auto) 9.9 H, Eosinophils (%) (Auto) 2.1, Basophils (%) (Auto) 0.2, Neutrophils # (Auto) 7.2, Lymphocytes # (Auto) 0.3 L, Monocytes # (Auto) 0.9 H, Eosinophils # (Auto) 0.2, Basophils # (Auto) 0.0 Microbiology Microbiology 09/17/18 Blood Culture - Preliminary, Resulted No growth after 24 hours . All specim... 09/17/18 Urine Culture - Final, Complete BIMAL ROTH MD Sep 19, 2018 08:45
[2018-09-19] MEDS ORDERED: PROPOFOL 200 MG/20 ML VIAL As Ordered ONE ×2 (11:26→11:59)
[2018-09-19] MEDS ORDERED: LIDOCAINE 2% INJ 100 MG/5 ML SDV (FOR ANES.) As Ordered ONE (11:26)
[2018-09-19] MEDS ORDERED: fentaNYL 100 MCG/2 ML INJECTION (J3010) As Ordered ONE (11:26)
--- NOTE | 2018-09-19 12:24 | ROOR ---
Patient Name: Anibal Lopez Procedure Date: 09/19/2018 11:17 AM Date of : 1935 Age: 83 Gender: Male Note Status: Finalized Procedure: Upper GI endoscopy Indications: Acute post hemorrhagic anemia Providers: Jason Alberto MD Referring MD: Mike Zhang MD Requesting Provider: Medicines: Monitored Anesthesia Care Complications: No immediate complications. Procedure: Pre-Anesthesia Assessment: - Prior to the procedure, a History and Physical was performed, and patient medications and allergies were reviewed. The patient is competent. The risks and benefits of the procedure and the sedation options and risks were discussed with the patient. All questions were answered and informed consent was obtained. Patient identification and proposed procedure were verified by the physician, the nurse and the anesthesiologist in the procedure room. Mental Status Examination: alert and oriented. Airway Examination: normal oropharyngeal airway and neck mobility. Respiratory Examination: clear to auscultation. CV Examination: normal. Prophylactic Antibiotics: The patient does not require prophylactic antibiotics. Prior Anticoagulants: The patient has taken no previous anticoagulant or antiplatelet agents. ASA Grade Assessment: III - A patient with severe systemic disease. After reviewing the risks and benefits, the patient was deemed in satisfactory condition to undergo the procedure. The anesthesia plan was to use monitored anesthesia care (MAC). Immediately prior to administration of medications, the patient was re-assessed for adequacy to receive sedatives. The heart rate, respiratory rate, oxygen saturations, blood pressure, adequacy of pulmonary ventilation, and response to care were monitored throughout the procedure. The physical status of the patient was re-assessed after the procedure. The Endoscope was introduced through the mouth, and advanced to the second part of duodenum. The upper GI endoscopy was accomplished without difficulty. The patient tolerated the procedure well. Findings: The Z-line was irregular and was found 38 cm from the incisors. Localized moderate mucosal changes characterized by congestion, erosion and nodularity were found at the gastroesophageal junction and in the cardia. Biopsies were taken with a cold forceps for histology. Verification of patient identification for the specimen was done by the physician and nurse using the patient's name, date and medical record number. Estimated blood loss was minimal. 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 Coagulation for hemostasis using argon plasma was successful. Two biopsies were obtained at the incisura with cold forceps for Helicobacter pylori testing. No gross lesions were noted in the duodenal bulb, in the second portion of the duodenum and in the third portion of the duodenum. Impression: - Z-line irregular, 38 cm from the incisors. - Congested, eroded and nodular mucosa in the gastroesophageal junction and cardia. Biopsied. - Gastric antral vascular ectasia with bleeding. Treated with argon plasma coagulation (APC). - No gross lesions in the duodenal bulb, in the second portion of the duodenum and in the third portion of the duodenum. - Two biopsies were obtained at the incisura. Recommendation: - Patient has a contact number available for emergencies. The signs and symptoms of potential delayed complications were discussed with the patient. Return to normal activities tomorrow. Written discharge instructions were provided to the patient. - Full liquid diet today, then advance as tolerated to resume previous diet. - Use Protonix (pantoprazole) 40 mg PO BID for 6 weeks. - If Biopsy shows H. pylori will need therapy with antibiotic course.. - Repeat upper endoscopy in 2 months for retreatment. - Return to GI clinic as previously scheduled on Or can call GI clinic # [phone] to review results over phone. - Return to primary care physician. Jason Alberto MD Jason Alberto MD 09/19/2018 12:23:22 PM Electronically signed by Jason Alberto MD Number of Addenda: 0 Note Initiated On: 09/19/2018 11:17 AM Estimated Blood Loss: Estimated blood loss was minimal.
[2018-09-19] MEDS ORDERED: LR 1,000 ML IV SCH (12:30)
[2018-09-19] MEDS ORDERED: fentaNYL 100 MCG/2 ML INJECTION (J3010) IV PRN (12:30)
[2018-09-19] MEDS ORDERED: METOCLOPRAMIDE INJ 10MG/2ML VIAL (J2765) IV PRN (12:30)
[2018-09-19] MEDS ORDERED: PROMETHAZINE INJ 25 MG/ML VIAL (J2550) IV PRN (12:30)
[2018-09-19 15:19] LABS: HEMATOCRIT 28.7 % (42.0-52.0); HEMOGLOBIN 9.3 g/dl (13.5-17.5)
[2018-09-19 18:54] LABS: HEMATOCRIT 31.5 % (42.0-52.0)
[2018-09-19] MEDS: ATORVASTATIN 20 MG TAB PO SCH (20:34)
[2018-09-19] MEDS: LevoFLOXacin IV 500 MG in APPROPRIATE DILUENT 1 EA IV SCH (20:35)
[2018-09-19] MEDS: rOPINIRole 0.25 MG TAB(REQUIP) PO SCH (20:35)
[2018-09-20 02:00] VITALS: BP 129/70
[2018-09-20] MEDS: LEVOTHYROXINE 50MCG TABLET (0.05MG) PO SCH (05:38)
[2018-09-20 06:00] VITALS: BP 132/80
[2018-09-20 06:23] LABS: BASO % 0.2 % (0.0-1.0); EOS # 0.2 10^3/uL (0.0-0.50); EOS % 3.6 % (0.0-3.0); HEMATOCRIT 28.6 % (42.0-52.0); HEMOGLOBIN 9.2 g/dl (13.5-17.5); LYMPH # 0.3 10^3/uL (1.5-4.5); MEAN CORPUSCULAR HEMOGLOBIN 29.9 pg (27.0-33.0); MEAN CORPUSCULAR HGB CONC 32.2 g/dl (32.0-36.5); MEAN CORPUSCULAR VOLUME 92.9 fl (80.0-96.0); MONO # 0.8 10^3/uL (0.0-0.8); MONO % 12.7 % (0.0-5.0); NEUTROPHILS # 4.6 10^3/uL (1.8-7.7); NEUTROPHILS % 78.5 % (36.0-66.0); PLATELET COUNT, AUTOMATED 140 10^3/uL (150-450); RED BLOOD COUNT 3.08 10^6/uL (4.30-6.10); WHITE BLOOD COUNT 5.9 10^3/uL (4.0-10.0)
[2018-09-20 06:41] LABS: BLOOD UREA NITROGEN 18 MG/DL (7-18); CALCIUM LEVEL 7.7 MG/DL (8.8-10.2); CARBON DIOXIDE LEVEL 25 MEQ/L (21-32); CHLORIDE LEVEL 113 MEQ/L (98-107); CREATININE FOR GFR 0.77 MG/DL (0.70-1.30); GLOMERULAR FILTRATION RATE > 60.0 (>35); GLUCOSE, FASTING 135 MG/DL (70-100); POTASSIUM SERUM 3.7 MEQ/L (3.5-5.1); SODIUM LEVEL 143 MEQ/L (136-145)
[2018-09-20 07:25] LABS: LYMPH % 4.7 % (24.0-44.0)
[2018-09-20] MEDS: PANTOPRAZOLE 40MG INJ (PROTONIX) (C9113) IV SCH (08:19)
[2018-09-20] MEDS: CYANOCOBALAMIN 500 MCG TAB PO SCH (08:19)
[2018-09-20] MEDS: SUCRALFATE 1 GM TAB PO SCH (08:19)
[2018-09-20] MEDS ORDERED: SUCR1TA PO (09:37)
[2018-09-20] MEDS ORDERED: PANT40TA3 PO (09:37)
[2018-09-20] MEDS ORDERED: LEVO500T3 PO (09:37)
[2018-09-20 10:00] VITALS: BP 129/68
--- NOTE | 2018-09-20 12:40 | DS.PDOC ---
Discharge Summary General Date of Admission Sep 17, 2018 at 19:38 Date of Discharge 09/20/18 Discharge Summary PROCEDURES PERFORMED DURING STAY: EGD:: - Z-line irregular, 38 cm from the incisors. - Congested, eroded and nodular mucosa in the gastroesophageal junction and cardia. Biopsied. - Gastric antral vascular ectasia with bleeding. Treated with argon plasma coagulation (APC). - No gross lesions in the duodenal bulb, in the second portion of the duodenum and in the third portion of the duodenum. - Two biopsies were obtained at the incisura. 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 HISTORY OF PRESENT ILLNESS: Please see history and physical HOSPITAL COURSE: Mr. 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 on 09/16 he was found to be anemic again by his PMD and received 2 units of prbc. He did pretty well, per , and he had a PET scan done 2 weeks ago and was told his cancer is gone. He also has iron deficiency anemia, which he received three packs of red blood cell (RBC) transfusion back to August 16, 2018. Yesterday he received another two units of red blood cell transfusion due to his hemoglobin down to [address] Riddle. After transfusion, he was doing fine. on 09/05 3 morning the found the patient was very weak, and he is confused and the patient was not himself. He was brought to the ER for further evaluation. He was admitted for possible sepsis, anemia form GIB and metabolic encephalopathy. Possible sepsis No source of infection found it could be dehydration and reactive too. lactate elevated on admission, wbc elevated, had low grade fever. CXR clear, abdomen benign, UA clean awaiting blood cultures continue with levofloxcin. Anemia acute on chronic blood loss anemia also iron deficiency and vit B12 deficiency anemia. received 5 units in the past 1 month. Guaiac was positive. 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 will need to be repeated in 2 months. biopsies sent. If positive for H pylori will need antibiotics. continue pantoprazole 40 bid x 6 weeks. 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 finished external beam radiation therapy for palliation of his swallowing issues PET scan on 09/08 was negative. following with Radiation oncology does not seem to have astrid medication oncologist. Prostate cancer treated with RT in 2008 deemed to be cured hypothyroid continue synthroid hyperlipidemia, continue home meds hypertension stop all antihypertensives. blood pressure running low or low normal. restless legs continue ropinirole CHF { Dr Redmond}, lasix prn DISCHARGE MEDICATIONS: Please see below. ALLERGIES: Please see below. PHYSICAL EXAMINATION ON DISCHARGE: VITAL SIGNS: Please see below. General Exam: Positive: Alert, Cooperative, No Acute Distress Eye Exam: Positive: PERRLA, Conjunctiva & lids normal, EOMI; Negative: Sclera icteric ENT Exam: Positive: Atraumatic, Mucous membr. moist/pink, Pharynx Normal Neck Exam: Positive: Supple; Negative: JVD, thyromegaly Chest Exam: Positive: Clear to auscultation, Normal air movement Heart Exam: Positive: Rate Normal, Regular Rhythm, Normal S1, Normal S2; Negative: Murmurs, Rubs Abdomen Exam: Positive: Normal bowel sounds, Soft; Negative: Tenderness, Hepatospenomegaly Extremity Exam: Positive: Normal pulses; Negative: Clubbing, Cyanosis, Edema LABORATORY DATA: Please see below. ACTIVITY: [As tolerated]. DIET: Soft DISPOSITION: 01 Home, Self-Care. DISCHARGE INSTRUCTIONS: Follow up with PMD in 1 week Follow up with Dr Avelar as needed ITEMS TO FOLLOWUP ON ON OUTPATIENT: Biopsy report. DISCHARGE CONDITION: [Stable]. TIME SPENT ON DISCHARGE: 35 minutes. Vital Signs/I&Os Vital Signs Date Time Temp Pulse Resp B/P (MAP) Pulse Ox O2 Delivery O2 Flow Rate FiO2 09/20/18 10:00 96.7 74 19 129/68 (88) 98 09/17/18 21:30 Room Air I&O- Last 24 Hours up to 6 AM 09/20/18 06:00 Intake Total 1640 ml Balance 1640 ml Laboratory Data Labs 24H Laboratory Tests 2 09/20/18 06:05: Immature Granulocyte % (Auto) 0.3, White Blood Count 5.9, Red Blood Count 3.08L, Hemoglobin 9.2L, Hematocrit 28.6L, Mean Corpuscular Volume 92.9, Mean Corpuscular Hemoglobin 29.9, Mean Corpuscular Hemoglobin Concent 32.2, Red Cell Distribution Width 16.0H, Platelet Count 140L, Neutrophils (%) (Auto) 78.5H, Lymphocytes (%) (Auto) 4.7L, Monocytes (%) (Auto) 12.7H, Eosinophils (%) (Auto) 3.6H, Basophils (%) (Auto) 0.2, Neutrophils # (Auto) 4.6, Lymphocytes # (Auto) 0.3L, Monocytes # (Auto) 0.8, Eosinophils # (Auto) 0.2, Basophils # (Auto) 0.0, Nucleated Red Blood Cells % (auto) 0.0, Anion Gap 5L, Glomerular Filtration Rate > 60.0, Blood Urea Nitrogen 18, Creatinine 0.77, Sodium Level 143, Potassium Level 3.7, Chloride Level 113H, Carbon Dioxide Level 25, Calcium Level 7.7L CBC/BMP Laboratory Tests 09/19/18 15:01 09/19/18 18:21 09/20/18 06:05 Red Blood Count 3.08 L, Mean Corpuscular Volume 92.9, Mean Corpuscular Hemoglobin 29.9, Mean Corpuscular Hemoglobin Concent 32.2, Red Cell Distribution Width 16.0 H, Neutrophils (%) (Auto) 78.5 H, Lymphocytes (%) (Auto) 4.7 L, Monocytes (%) (Auto) 12.7 H, Eosinophils (%) (Auto) 3.6 H, Basophils (%) (Auto) 0.2, Neutrophils # (Auto) 4.6, Lymphocytes # (Auto) 0.3 L, Monocytes # (Auto) 0.8, Eosinophils # (Auto) 0.2, Basophils # (Auto) 0.0, Calcium Level 7.7 L Microbiology Microbiology 09/17/18 Blood Culture - Preliminary, Resulted No Growth after 48 hours. All Specime... 09/17/18 Urine Culture - Final, Complete Discharge Medications Scheduled Aspirin (Aspir 81) 81 Mg Tab, 81 MG PO DAILY, (Reported) Atorvastatin Calcium (Atorvastatin Calcium) 40 Mg Tablet, 40 MG PO QHS, (Reported) Cyanocobalamin (Vitamin B-12) (Vitamin B12) 2,500 Mcg Tablet, 2,500 MCG PO RODOLFO LY, (Reported) Ferrous Sulfate, Dried (Slow Release Iron) 160 Mg Tablet.er, 160 MG PO DAILY, (Reported) Levofloxacin (Levofloxacin) 500 Mg Tablet, 500 MG PO QPM Levothyroxine Sodium (Levoxyl) 50 Mcg Tablet, 50 MCG PO DAILY, (Reported) Pantoprazole Sodium (Pantoprazole Sodium) 40 Mg Tablet.dr, 40 MG PO BID Ropinirole HCl (Ropinirole HCl) 0.5 Mg Tab, 0.5 MG PO QHS, (Reported) Sucralfate (Sucralfate) 1 Gm Tablet, 1 GM PO ACHS Allergies Coded Allergies: No Known Allergies (Unverified , 07/13/18) BIMAL ROTH MD Sep 20, 2018 12:40
== END 2018-09-20 11:40 | disposition home or self-care (01) | DRG 871 ==
LOC: EDBD 15:15 → M ED 15:15 → M ED INP 19:38 → M MSPAV 21:53
PROVIDERS: ADMIT Hospitalist; ATTEND Internal Medicine Nephrology
PROC: 30233N1 Transfusion of Nonautologous Red Blood Cells into Peripheral Vein, Percutaneous Approach (ICD-10-PCS; principal; 2018-09-18)
PROC: 0DB68ZX Excision of Stomach, Via Natural or Artificial Opening Endoscopic, Diagnostic (ICD-10-PCS; 2018-09-19)
PROC: 0W3P8ZZ Control Bleeding in Gastrointestinal Tract, Via Natural or Artificial Opening Endoscopic (ICD-10-PCS; 2018-09-20)
DX: A41.9 Sepsis, unspecified organism (principal); G93.41 Metabolic encephalopathy; K31.811 Angiodysplasia of stomach and duodenum with bleeding; I50.32 Chronic diastolic (congestive) heart failure; D62 Acute posthemorrhagic anemia; K92.2 Gastrointestinal hemorrhage, unspecified; I25.10 Atherosclerotic heart disease of native coronary artery without angina pectoris; I25.2 Old myocardial infarction; E03.9 Hypothyroidism, unspecified; I11.0 Hypertensive heart disease with heart failure; E78.5 Hyperlipidemia, unspecified; G25.81 Restless legs syndrome; E53.8 Deficiency of other specified B group vitamins; Z85.46 Personal history of malignant neoplasm of prostate; Z85.01 Personal history of malignant neoplasm of esophagus; Z79.899 Other long term (current) drug therapy; Z79.82 Long term (current) use of aspirin; K21.9 Gastro-esophageal reflux disease without esophagitis; Z96.642 Presence of left artificial hip joint

== ENCOUNTER → 2018-09-25 | Outpatient (REF) | payer MEDICARE, BC ==
[~2018-09-25] MED LIST changes: +LEVO500T3 PO; +PANT40TA3 PO; +SUCR1TA PO
[2018-09-25 16:13] LABS: ATYPICAL LYMPH 1 % (0-5); BASOPHILS 2 % (0-4); LYMPHOCYTES 14 % (16-52); MONOCYTES 1 % (0-8); NEUTROPHILS 82 % (35-75)
[2018-09-25 16:14] LABS: PLATELET ESTIMATE NORMAL (NORMAL)
[2018-09-25 16:15] LABS: ANISOCYTOSIS 1+; HYPOCHROMASIA 1+; POIKILOCYTOSIS 1+
== END ==
LOC: M LAB REF 15:29
PROVIDERS: ATTEND Family Medicine
DX: D72.89 Other specified disorders of white blood cells (principal)

== ENCOUNTER → 2018-10-07 | Outpatient (CLI) | payer MEDICARE, BC ==
[2018-10-07 13:34] LABS: BASO % 0.4 % (0.0-1.0); EOS # 0.1 10^3/uL (0.0-0.50); EOS % 1.7 % (0.0-3.0); HEMATOCRIT 23.7 % (42.0-52.0); HEMOGLOBIN 7.4 g/dl (13.5-17.5); LYMPH # 0.3 10^3/uL (1.5-4.5); LYMPH % 6.7 % (24.0-44.0); MEAN CORPUSCULAR HEMOGLOBIN 29.1 pg (27.0-33.0); MEAN CORPUSCULAR HGB CONC 31.2 g/dl (32.0-36.5); MEAN CORPUSCULAR VOLUME 93.3 fl (80.0-96.0); MONO # 0.8 10^3/uL (0.0-0.8); MONO % 17.2 % (0.0-5.0); NEUTROPHILS # 3.5 10^3/uL (1.8-7.7); NEUTROPHILS % 73.8 % (36.0-66.0); PLATELET COUNT, AUTOMATED 172 10^3/uL (150-450); RED BLOOD COUNT 2.54 10^6/uL (4.30-6.10); WHITE BLOOD COUNT 4.8 10^3/uL (4.0-10.0)
[2018-10-07 14:03] LABS: BLOOD UREA NITROGEN 27 MG/DL (7-18); CREATININE FOR GFR 0.98 MG/DL (0.70-1.30); FERRITIN 16 NG/ML (26-388); GLOMERULAR FILTRATION RATE > 60.0 (>35); IRON (FE) 28 UG/DL (65-175); PERCENT SATURATION 11.3 % (19.7-50.0); TOTAL IRON BINDING CAPACITY 248 UG/DL (250-450)
[2018-10-07 14:08] LABS: VITAMIN B12 LEVEL 581 PG/ML
[2018-10-07 14:26] LABS: FOLATE > 24.0 NG/ML
== END ==
LOC: M LAB 12:35
PROVIDERS: ATTEND Internal Medicine Gastroenterology
DX: D62 Acute posthemorrhagic anemia (principal)

== ENCOUNTER 2018-10-13 11:13 | Outpatient (CLI) | payer MEDICARE, BC ==
[~2018-10-13] VITALS: Ht 170.2 cm; Wt 67.0 kg
[2018-10-13 11:40] VITALS: BP 97/58
[2018-10-23] MEDS ORDERED: EQL160TA PO (08:24)
[2018-10-23] MEDS ORDERED: CYAN100050 PO (08:24)
[2018-12-03] MEDS ORDERED: FURO20TA2 PO (11:03)
[2019-03-17] MEDS ORDERED: SUCR1TA PO (13:11)
[2019-03-17] MEDS ORDERED: PANT40TA3 PO (13:11)
[2019-03-17] MEDS ORDERED: SPIR-10 PO (13:11)
== END 2018-10-13 16:05 | disposition home or self-care (01) ==
LOC: M INFU 11:13
PROVIDERS: ATTEND Internal Medicine Gastroenterology
DX: K31.811 Angiodysplasia of stomach and duodenum with bleeding (principal)
CPT/HCPCS: 36415; 36430; 86850; 86900; 86901; 86920; P9016

== ENCOUNTER 2018-10-26 11:43 | Day surgery (SDC) | payer MEDICARE, BC ==
[~2018-10-26] VITALS: Ht 170.2 cm; Wt 71.2 kg
[~2018-10-26 11:43] MED LIST changes: +CYAN100050 PO; +EQL160TA PO; +LIDOCAINE 2% INJ 100 MG/5 ML SDV (FOR ANES.) As Ordered ONE; +NS 1,000 ML IV ONE; +PROPOFOL 200 MG/20 ML VIAL As Ordered ONE
[2018-10-26] MEDS ORDERED: LASI20TA3 PO (12:35)
[2018-10-26] MEDS ORDERED: fentaNYL 100 MCG/2 ML INJECTION (J3010) As Ordered ONE (13:44)
--- NOTE | 2018-10-26 14:53 | ROOR ---
Patient Name: Anibal Lopez Procedure Date: 10/26/2018 1:43 PM Date of : 1935 Age: 83 Room: [facility] Gender: Male Note Status: Finalized Procedure: Upper GI endoscopy Indications: Treatment of bleeding gastric lesion, Treatment of bleeding vascular abnormality in the stomach Providers: Jason Alberto MD Referring MD: Nick Riddle MD Requesting Provider: Medicines: Monitored Anesthesia Care Complications: No immediate complications. Procedure: Pre-Anesthesia Assessment: - Prior to the procedure, a History and Physical was performed, and patient medications and allergies were reviewed. The patient is competent. The risks and benefits of the procedure and the sedation options and risks were discussed with the patient. All questions were answered and informed consent was obtained. Patient identification and proposed procedure were verified by the physician, the nurse and the anesthesiologist in the procedure room. Mental Status Examination: alert and oriented. Airway Examination: normal oropharyngeal airway and neck mobility. Respiratory Examination: clear to auscultation. CV Examination: normal. Prophylactic Antibiotics: The patient does not require prophylactic antibiotics. Prior Anticoagulants: The patient has taken no previous anticoagulant or antiplatelet agents. ASA Grade Assessment: II - A patient with mild systemic disease. After reviewing the risks and benefits, the patient was deemed in satisfactory condition to undergo the procedure. The anesthesia plan was to use moderate sedation / analgesia (conscious sedation). Immediately prior to administration of medications, the patient was re-assessed for adequacy to receive sedatives. The heart rate, respiratory rate, oxygen saturations, blood pressure, adequacy of pulmonary ventilation, and response to care were monitored throughout the procedure. The physical status of the patient was re-assessed after the procedure. The Endoscope was introduced through the mouth, and advanced to the second part of duodenum. The upper GI endoscopy was accomplished without difficulty. The patient tolerated the procedure well. Findings: A medium-sized, ulcerating mass with no bleeding and stigmata of recent bleeding was found at the gastroesophageal junction. The mass was non-obstructing and partially circumferential (involving one-third of the lumen circumference). A large, ulcerated, partially circumferential (involving one-half of the lumen circumference) mass with no bleeding and stigmata of recent bleeding was found in the cardia. Multiple angioectasias with stigmata of recent bleeding were found in the gastric antrum. Focal radiofrequency ablation of gastric antral vascular ectasia in the stomach was performed. With the endoscope in place, the position and extent of the abnormal mucosa and appropriate anatomic landmarks were noted. The abnormal mucosa was irrigated with water. The radiofrequency channel ablation catheter was introduced through the endoscope working channel. The endoscope with the ablation catheter was advanced to the areas of abnormal mucosa. The endoscope with the channel ablation catheter was positioned under direct visualization so that the catheter was placed in contact with the surface of the abnormal mucosa. Energy was applied once at 12 J/cm2. Ablation was repeated in a likewise fashion to all visible abnormal mucosa. The ablation catheter was removed through the endoscope working channel. The areas where abnormal mucosa had been ablated were examined. Areas of abnormal mucosa appeared completely ablated. Whitish changes of ablated mucosa were present. There was no bleeding. The patient had no complications. There was no evidence for perforation. The endoscope was then removed. The duodenal bulb and second portion of the duodenum were normal. 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 - Multiple recently bleeding angioectasias in the stomach. Treated with radiofrequency ablation. - Normal duodenal bulb and second portion of the duodenum. - No specimens collected. Recommendation: - Patient has a contact number available for emergencies. The signs and symptoms of potential delayed complications were discussed with the patient. Return to normal activities tomorrow. Written discharge instructions were provided to the patient. - Resume previous diet. - Continue present medications. - Use Protonix (pantoprazole) 40 mg PO twice daily - to be taken in morning (1/2 hour before breakfast) and at bedtime ( atleast 3 hours after last meal) for 12 weeks. - Telephone GI clinic if symptomatic. - Check hemogram with white blood cell count and platelets monthly. - Recommend an iron supplement. - Return to primary care physician. Jason Alberto MD Jason Alberto MD 10/26/2018 2:53:23 PM Electronically signed by Jason Alberto MD Number of Addenda: 0 Note Initiated On: 10/26/2018 1:43 PM Estimated Blood Loss: Estimated blood loss: none.
[2018-10-26 15:00] VITALS: BP 163/75
== END 2018-10-26 15:42 | disposition home or self-care (01) ==
LOC: M OPP 11:43
PROVIDERS: ATTEND Internal Medicine Gastroenterology
DX: C16.0 Malignant neoplasm of cardia (principal); K31.811 Angiodysplasia of stomach and duodenum with bleeding; Z79.82 Long term (current) use of aspirin; Z79.899 Other long term (current) drug therapy
CPT/HCPCS: 43255; J3010

== ENCOUNTER → 2018-11-03 | Outpatient (CLI) | payer MEDICARE, BC ==
[~2018-11-03] MED LIST changes: +LASI20TA3 PO; -LIDOCAINE 2% INJ 100 MG/5 ML SDV (FOR ANES.) As Ordered ONE; -NS 1,000 ML IV ONE; -PROPOFOL 200 MG/20 ML VIAL As Ordered ONE
[2018-11-03 13:08] LABS: HEMATOCRIT 27.6 % (42.0-52.0); HEMOGLOBIN 8.6 g/dl (13.5-17.5); MEAN CORPUSCULAR HEMOGLOBIN 28.8 pg (27.0-33.0); MEAN CORPUSCULAR HGB CONC 31.2 g/dl (32.0-36.5); MEAN CORPUSCULAR VOLUME 92.3 fl (80.0-96.0); PLATELET COUNT, AUTOMATED 166 10^3/uL (150-450); RED BLOOD COUNT 2.99 10^6/uL (4.30-6.10)
== END ==
LOC: M LAB 12:36
PROVIDERS: ATTEND Internal Medicine Cardiovascular Disease
DX: I11.0 Hypertensive heart disease with heart failure (principal)

== ENCOUNTER → 2018-11-03 | Outpatient (CLI) | payer MEDICARE, BC ==
--- NOTE | 2018-11-03 14:33 | REP ---
The late upper extremity deep vein duplex ultrasound: The deep veins demonstrate normal compression, normal Doppler color flow and normal Doppler waveforms with respiration and augmentation from the right jugular vein vein to the right brachial veins . Impression: There is no right upper extremity deep vein thrombus. Electronically Signed by Fred Narayanan MD 11/03/2018 02:23 P
== END ==
LOC: M RAD 13:04
PROVIDERS: ATTEND Physician Assistant
DX: I80.8 Phlebitis and thrombophlebitis of other sites (principal); L03.113 Cellulitis of right upper limb; I11.0 Hypertensive heart disease with heart failure

== ENCOUNTER → 2018-11-09 | Outpatient (REF) | payer MEDICARE, BC ==
[2018-11-09 13:32] LABS: PERCENT SATURATION 5.8 % (19.7-50.0)
[2018-11-09 13:36] LABS: FOLATE 15.6 NG/ML
== END ==
LOC: M LAB REF 12:32
PROVIDERS: ATTEND Family Medicine
DX: K31.811 Angiodysplasia of stomach and duodenum with bleeding (principal); C16.0 Malignant neoplasm of cardia

== ENCOUNTER → 2018-12-22 | Outpatient (CLI) | payer MEDICARE, BC ==
[~2018-12-22] MED LIST changes: +FURO20TA2 PO; +GNP80CHW PO; +SPIR-10 PO
--- NOTE | 2018-12-22 19:44 | REP ---
Whole body PET CT scan for restaging of esophageal carcinoma: Comparison is the most recent PET CT scan dated September 08, 2018. Whole-body scanning is performed from the skull base to the upper thighs. Neck and supraclavicular areas: There are no hypermetabolic foci. This is unchanged. Chest: There is a focal hypermetabolic uptake at the gastroesophageal junction with the maximum standard uptake value today measuring 11.3. On the prior PET scan, the standard uptake value in this area was 3.75. There are no other foci in the chest. Abdomen, pelvis and upper thighs: There are no hypermetabolic foci. Specifically there are no adrenal or hepatic foci. On the CT accompanying the scan today. There are small bilateral pleural effusions, not present previously. Additionally, there is a pericardial effusion, not present previously. The there is no hypermetabolic activity associated with these effusions. Impression: There is hypermetabolic uptake at the gastroesophageal junction as described. There are no other hypermetabolic foci. There are small bilateral pleural effusions and pericardial effusion as interval changes. The study is performed with 8.23 mCi of F 18 FDG. Electronically Signed by Fred Narayanan MD 12/22/2018 07:36 P
== END ==
LOC: M PLARAD 14:14
PROVIDERS: ATTEND Internal Medicine Medical Oncology
DX: C15.8 Malignant neoplasm of overlapping sites of esophagus (principal)
CPT/HCPCS: 78815; A9552

== ENCOUNTER → 2018-12-25 | Outpatient (CLI) | payer MEDICARE, BC ==
[~2018-12-25] MED LIST changes: +GASTROGRAFIN SOLUTION 30ML (Q9963) As Ordered ONE; -GNP80CHW PO; +ISOVUE-370 76% 100ML VIAL (Q9967) As Ordered ONE; -SPIR-10 PO
--- NOTE | 2018-12-25 16:22 | REP ---
CT of the abdomen and pelvis with IV and oral contrast for restaging esophageal carcinoma. Comparison is 02/25/2018. Within the visualized lower lung nava. There are small bilateral pleural effusions and a pericardial effusion as changes from the prior study. No lung nodules are identified within the visualized lung nava. There is circumferential wall thickening of the distal esophagus extending to the gastric cardia, not significantly changed. No perigastric or mesenteric nodes are identified. There is no ascites. There is mild intrahepatic biliary duct dilatation as an interval change. There are no hepatic metastases. The common biliary duct is not dilated measuring 9 mm in diameter. The pancreas and spleen are unremarkable. The adrenals are unremarkable. There is bilateral renal cortical scarring. There are no renal masses or cysts. The abdominal aorta is unremarkable. There is no periaortic adenopathy or mass. There is extensive sigmoid diverticulosis without diverticulitis, as previously. There is a giant sigmoid diverticula measuring up to 5 cm in diameter as previously. There is layering debris within this nine diverticulum, as previously. There is no CT evidence of diverticulitis. There is no ascites. There is no adenopathy. There is a left hip arthroplasty with beam-hardening artifact obscuring visualization of the inferior pelvis. This is unchanged. Impression: There are small bilateral pleural effusions and a pericardial effusion as interval changes. There is mild intrahepatic biliary duct dilatation as an interval change. No other interval changes are identified. There is moderate circumferential wall thickening of the distal esophagus and gastric cardia without interval change. The, mass or ascites. Extensive sigmoid colon diverticulosis without diverticulitis. 95 cm sigmoid diverticulum containing layering debris is again identified, unchanged. Electronically Signed by Fred Narayanan MD 12/25/2018 04:14 P
--- NOTE | 2018-12-25 16:24 | REP ---
CT of the chest with IV contrast: Studies performed. Contiguous with the CT abdomen the same date. Comparison is 02/25/2018. There are small bilateral pleural effusions and there is a pericardial effusion as interval changes. There is cardiomegaly, unchanged. There are no infiltrates. There are no masses or nodules. There is no mediastinal, hilar or axillary lymphadenopathy. There is circumferential wall thickening of the distal esophagus and gastric cardia, similar to the prior study. The thoracic aorta is unremarkable. Impression: Small bilateral pleural effusions and pericardial effusion as an interval change. Moderate circumferential wall thickening of the distal esophagus and gastric cardia, unchanged. No adenopathy. No lung masses or nodules. Cardiac size is enlarged, unchanged. Electronically Signed by Fred Narayanan MD 12/25/2018 04:16 P
== END ==
LOC: M RAD 11:27
PROVIDERS: ATTEND Internal Medicine Medical Oncology
DX: C15.9 Malignant neoplasm of esophagus, unspecified (principal); J90 Pleural effusion, not elsewhere classified; I31.3 Pericardial effusion (noninflammatory); I51.7 Cardiomegaly; K57.30 Diverticulosis of large intestine without perforation or abscess without bleeding; Z96.642 Presence of left artificial hip joint
CPT/HCPCS: 71260; 74177; Q9963; Q9967

== ENCOUNTER → 2019-01-13 | Outpatient (CLI) | payer MEDICARE, BC ==
[~2019-01-13] MED LIST changes: -GASTROGRAFIN SOLUTION 30ML (Q9963) As Ordered ONE; -ISOVUE-370 76% 100ML VIAL (Q9967) As Ordered ONE
--- NOTE | 2019-01-15 10:15 | RADONC ---
RADIATION ONCOLOGY FOLLOWUP NOTE DATE: 01/13/2019 CHART NUMBER: [id number] DIAGNOSIS: Gastroesophageal cancer. STAGE: IIB, T2N0M0. ECOG PERFORMANCE STATUS: 0. FOLLOWUP NOTE: Mr. 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 The patient presents today reporting that generally he is doing quite well. He was seen by Dr. Alberto who undertook endoscopy for evaluation of some GI bleeding. Since his workup and intervention by Dr. Alberto he reports that he has had no further GI bleeding and remains relatively stable. The patient also reports that he began immunotherapy with his medical oncologist, Dr. Matt just recently. The patient has no complaints at this time related to his radiation therapy or disease. He continues to have some weakness from his anemia from bleeding but overall is able to swallow and is doing fairly well. The patient's review of systems is otherwise noncontributory. He denies nausea, vomiting, fevers, chills, night sweats, diplopia, headaches, anxiety or depression, anorexia, weight loss, visual disturbances, chest pain, urinary or bowel difficulties, bone pain, or neurological problems. PHYSICAL EXAMINATION: The patient is a well-developed, well-nourished male in no acute distress. HEENT exam is normocephalic, atraumatic. Extraocular movements are intact. There is no palpable cervical, supraclavicular, infraclavicular, axillary, or inguinal lymphadenopathy present. Lungs are clear to auscultation and percussion. Heart has a regular rate and rhythm. Abdomen is benign with no hepatosplenomegaly, masses, or tenderness. Rectal examination reveals a normal anal sphincter tone. Skeletal examination reveals no tenderness to pressure or percussion of the bony skeleton. Extremities reveal no clubbing, cyanosis, or edema. Neurologic exam is grossly intact as is the remainder of the physical examination. The patient is continuing with his close management and followup with his medical oncologist, Dr. Niurka Matt. No further radiation is indicated for possible at this point. In light of this I have discharge this patient from our followup except on an as needed basis. The patient and his have my cell phone number as well as office number and we are available to them at anytime if they have any questions or we can be of any assistance whatsoever. cc: MD Irvin Rabago MD [place], MD Gerald Weinstein, MD Jason White, MD
== END ==
LOC: M ONCR 10:24
PROVIDERS: ATTEND Radiology Radiation Oncology
DX: C16.0 Malignant neoplasm of cardia (principal)

== ENCOUNTER → 2019-02-02 | Outpatient (CLI) | payer MEDICARE, BC ==
--- NOTE | 2019-02-02 16:41 | REP ---
Clinical: Cough. Technique: PA and lateral. Comparison: 09/17/2018. Findings: Cardiomegaly is appreciated. Bibasilar chronic changes versus trace atelectasis cannot be excluded. No effusion. No pneumothorax. Skeletal structures intact. Impression: Cannot exclude trace basilar atelectasis. Electronically Signed by Jeff Dyer MD 02/02/2019 04:32 P
== END ==
LOC: M RAD 15:46
PROVIDERS: ATTEND Internal Medicine Medical Oncology
DX: R05 Cough (principal)

== ENCOUNTER → 2019-03-21 | Outpatient (CLI) | payer MEDICARE, BC ==
[~2019-03-21] MED LIST changes: +SPIR-10 PO
== END ==
LOC: M LAB 12:04
PROVIDERS: ATTEND Internal Medicine Medical Oncology
DX: C15.9 Malignant neoplasm of esophagus, unspecified (principal)

== ENCOUNTER 2019-03-22 11:57 | Outpatient (CLI) | payer MEDICARE, BC ==
[~2019-03-22] VITALS: Ht 167.6 cm; Wt 70.9 kg
[2019-03-22 12:35] VITALS: BP 110/74
[2019-03-22 12:43] VITALS: BP 110/74
[2019-03-22 12:50] VITALS: BP 113/68
[2019-03-22] MEDS ORDERED: diphenhydrAMINE 50 MG CAP PO ONE (13:00)
[2019-03-22] MEDS ORDERED: ACETAMINOPHEN TAB 650MG DOSE (2X325MG) PO ONE (13:00)
[2019-03-22 13:50] VITALS: BP 132/68
[2019-03-22] MEDS ORDERED: FUROSEMIDE 20 MG/2 ML VIAL (J1940) IV ONE (14:00)
[2019-03-22 14:35] VITALS: BP 136/72
[2019-03-22 15:15] VITALS: BP 107/66
== END 2019-03-22 15:15 | disposition home or self-care (01) ==
LOC: M INFU 11:57
PROVIDERS: ATTEND Internal Medicine Medical Oncology
DX: C15.9 Malignant neoplasm of esophagus, unspecified (principal)
CPT/HCPCS: 36430; 96374; J1940; P9016

== ENCOUNTER → 2019-04-13 | Outpatient (CLI) | payer MEDICARE, BC ==
[~2019-04-13] MED LIST changes: +CEFD300CAP PO; +GNP80CHW PO; +PROT1TAB2 PO
--- NOTE | 2019-04-14 09:06 | REP ---
PET/CT: HISTORY: Restaging gastroesophageal malignancy. 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 COMPARISONS: Comparison PET/CT study December 22, 2018. Prior PET/CT study is from September 08, 2018 and March 25, 2018 are also reviewed. The most recent CT abdomen and pelvis is from December 25, 2018. TECHNIQUE: 60 minutes following the intravenous injection of a 8.68 a mCi dose of F-18 FDG, three-dimensional PET scintigraphy is acquired from the skull base to the proximal thighs. Triplanar noncontrast CT scanning is acquired through the same anatomic range for attenuation correction, and image registration with scan parameters optimized to minimize radiation exposure to the patient. PET scintigraphy and CT datasets were fused and displayed on a workstation with multiplanar and projection display capability. PET/CT FINDINGS: Preliminary regional operations manager radiograph demonstrates fiducial markers in the prostate, a left hip arthroplasty, cardiomegaly, and high-density barium throughout the colon from recently performed GI series. The high-density barium produces considerable spray artifact on CT and fusion images in the mid abdomen. There is no evidence of abnormal abdominal or pelvic hypermetabolic uptake however. Incidental note is made of a left scrotal hydrocele. No abnormal head and neck uptake is appreciated. There is a pericardial effusion and there are bilateral pleural effusions. No abnormal hypermetabolic uptake is seen within either hilar or mediastinal regions. No abnormal pulmonary parenchymal hypermetabolic uptake is appreciated. There is nodular mass-like hypermetabolic uptake at the gastroesophageal junction region. This appears larger than on the most recent prior PET/CT. Maximum standard uptake value in this GE junction mass is 20.31 today, most recently on December 22, 2018. Maximum standard uptake value here was 14.3. There is no abnormal hepatic or upper abdominal harpreet hypermetabolic uptake seen. IMPRESSION: There is evidence of local progression at the gastroesophageal junction as above. Electronically Signed by Cole Betancourt MD 04/14/2019 11:27 A
== END ==
LOC: M PLARAD 07:42
PROVIDERS: ATTEND Internal Medicine Medical Oncology
DX: C16.0 Malignant neoplasm of cardia (principal)
CPT/HCPCS: 78815; 96365; A9552; J1756

== ENCOUNTER 2019-04-27 14:43 | Inpatient (IN) | payer MEDICARE, BC ==
[~2019-04-27] VITALS: Ht 170.2 cm; Wt 69.8 kg
[~2019-04-27 14:43] MED LIST changes: -CEFD300CAP PO; -GNP80CHW PO; -PROT1TAB2 PO
[2019-04-27] MEDS ORDERED: GNP80CHW PO (15:12)
[2019-04-27] MEDS ORDERED: ACETAMINOPHEN TAB 650MG DOSE (2X325MG) PO ONE (15:30)
[2019-04-27] MEDS ORDERED: NS 500 ML IV ONE (15:30)
[2019-04-27] MEDS ORDERED: PROT1TAB2 PO (15:59)
[2019-04-27] MEDS ORDERED: FURO40TA2 PO (15:59)
[2019-04-27 16:01] LABS: INFLUENZA A AMPLIFICATION NEGATIVE (NEGATIVE); INFLUENZA B AMPLIFICATION NEGATIVE (NEGATIVE)
--- NOTE | 2019-04-27 16:14 | REP ---
Chest x-ray: Two views. History: Fever of unknown origin. Comparison chest x-ray: February 02, 2019. Findings: Moderate cardiac enlargement is seen. There is blunting of the posterior pleural angles bilaterally consistent with small bilateral effusions. There is no evidence of pulmonary edema or focal infiltrate. There is mild plate-like atelectasis in the left base. Impression: Moderate cardiac enlargement and small bilateral pleural effusions consistent with mild CHF. No focal infiltrate. Electronically Signed by Cole Betancourt MD 04/27/2019 04:06 P
[2019-04-27] MEDS ORDERED: NS 1,000 ML IV ONE (17:45)
[2019-04-27] MEDS ORDERED: ACETAMINOPHEN TAB 650MG DOSE (2X325MG) PO PRN (18:00)
[2019-04-27] MEDS: NS 1,000 ML IV SCH (18:09)
[2019-04-27] MEDS: cefTRIAXone SOD 2 GM in D5W MINI-BAG PLUS 50 ML IV SCH (18:09)
[2019-04-27 20:00] VITALS: BP 105/67
--- NOTE | 2019-04-27 21:43 | HPEPDOC ---
General Date of Admission 04/27/19 Date of Service: Apr 27, 2019 Chief Complaint The patient is a 83-year-old male admitted with a reason for visit of FEVER. 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 This morning he went for his appontment in the oncology clinic he was noted to he lethargic falling asleep, very weak with lowish blood pressures and was sent to the ED for evaluation. In the ED he was febrile to 102.4 BP was 89/53. He did not complain about anything. He wanted to go home. As per he had gone to the bathroom 9- 10 times in the morning. As per daughters he was confused. At home he had poor appetite last night and he was having chills in the morning. Patient was asked to urinate for a urine sample. After multiple tried he could not urinate however he was adamant that he was urinating fine at home in the morning. Bladder scan showed 650 cc. Prior to straight cath dried blood and clot was noted at the tip of the penis. Straight cath was attempted but there w as an obstruction just inside the urethral opening. Even a size 12 leon could not be inserted. After that a 8 Fr pediatric feeding tube could be successfully inserted. Few small clots came out then cola colored urine was drained from the bladder 500 cc. U/A came back very dirty. 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 Patient later on complained about feeling uncomfortable in the lower abdomen, a dull ache could not quantify it. Home Medications Scheduled Aspirin (Aspir 81) 81 Mg Tab, 81 MG PO DAILY, (Reported) Atorvastatin Calcium (Atorvastatin Calcium) 40 Mg Tablet, 40 MG PO QHS, (Reported) Cefdinir (Cefdinir) 300 Mg Capsule, 1 CAP PO BID Cyanocobalamin (Vitamin B-12) (Vitamin B-12) 1,000 Mcg Tablet, 1,000 MCG PO DAILY, (Reported) Ferrous Sulfate (Slow Release Iron) 250 Mg Tablet.er, 45 MG PO DAILY, (Reported) Furosemide (Furosemide) 40 Mg Tablet, 20 MG PO DAILY, (Reported) Levothyroxine Sodium (Levoxyl) 50 Mcg Tablet, 50 MCG PO DAILY, (Reported) Pantoprazole Sodium (Protonix) 40 Mg Tablet.dr, 40 MG PO BID, (Reported) Ropinirole HCl (Ropinirole HCl) 0.5 Mg Tab, 0.5 MG PO QHS, (Reported) Simethicone (Gas Relief 80) 80 Mg Tab.chew, 80 MG PO AC, (Reported) Spironolactone (Spironolactone) 25 Mg Tablet, 25 MG PO DAILY, (Reported) Allergies Coded Allergies: No Known Allergies (Unverified , 10/23/18) Past Medical History Medical History 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 Status post up front palliative radiation completed 06/2018. 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 CAD status post [place]. No stents. No CABG. Diastolic CHF with preserved EF The patient denies type 2 diabetes. Hearing impairment. Hypercholesterolemia, anemia, iron deficiency, B12 deficiency. GERD. Iron deficiency / multifactorial anemia. hypothyroidism. Surgical History Left total hip replacement. GE junction/gastric vascular cautery October 2018. Family History Significant Family History: Cancer ([id number]), Heart disease (brothers) A-FIB/CHADSVASC A-FIB History Current/History of A-Fib/PAF?: No Review of Systems Constitutional: Reports: Chills, Fever, Malaise Eyes: Denies: Pain, Vision change ENT: Denies: Head Aches, Ear Pain, Dysphagia Skin: Denies: Rash, Lesions, Breakdown Pulmonary: Reports: Cough Cardiovascular: Denies: Chest Pain, Palpitations, Orthopnea, Paroxysmal Noc. Dyspnea, Lt Headedness Gastrointestinal: Denies: Nausea, Vomiting, Abdominal Pain, Diarrhea Genitourinary: Reports: Frequency, Hematuria, Retention Hematologic: Denies: Bruising, Bleeding Excessively Musculoskeletal: Denies: Neck Pain, Back Pain, Joint Pain, Muscle Pain, Spasms Neurological: Reports: Confusion Physical Examination General Exam: Positive: Alert, Cooperative, No Acute Distress Eye Exam: Positive: PERRLA, Conjunctiva & lids normal, EOMI; Negative: Sclera icteric ENT Exam: Positive: Atraumatic, Mucous membr. moist/pink, Pharynx Normal Neck Exam: Positive: Supple; Negative: JVD, thyromegaly Chest Exam: Positive: Clear to auscultation, Normal air movement Heart Exam: Positive: Rate Normal, Regular Rhythm, Normal S1, Normal S2; Negative: Murmurs, Rubs Telemetry: Positive: No significant arrhythmia Abdomen Exam: Positive: Normal bowel sounds, Soft; Negative: Tenderness, Hepatospenomegaly Extremity Exam: Positive: Normal pulses; Negative: Clubbing, Cyanosis, Edema Neuro Exam: Positive: Normal Speech, Strength at 5/5 X4 ext, Normal Tone Psych Exam: Positive: Anxiety, Oriented x 3 Vital Signs Vital Signs Date Time Temp Pulse Resp B/P (MAP) Pulse Ox O2 Delivery O2 Flow Rate FiO2 04/27/19 16:12 100.6 04/27/19 16:00 91/63 (72) 04/27/19 15:58 102 96 04/27/19 14:48 18 Laboratory Data Labs 24H Laboratory Tests 2 04/27/19 15:17: Lactic Acid Level 1.3 04/27/19 15:19: Influenza Type A (RT-PCR) NEGATIVE, Influenza Type B (RT-PCR) NEGATIVE Microbiology Microbiology 04/27/19 Blood Culture, Received Pending 04/27/19 Blood Culture, Received Pending Assessment/Plan 83 year old male with PMH of 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 This morning he went for his appontment in the oncology clinic he was noted to he lethargic falling asleep, very weak with lowish blood pressures and was sent to the ED for evaluation. In the ED he was febrile to 102.4 BP was 89/53. He did not complain about anything. He wanted to go home. As per he had gone to the bathroom 9- 10 times in the morning. As per daughters he was confused. At home he had poor appetite last night and he was having chills in the morning. Patient was asked to urinate for a urine sample. After multiple tried he could not urinate however he was adamant that he was urinating fine at home in the morning. Bladder scan showed 650 cc. Prior to straight cath dried blood and clot was noted at the tip of the penis. Straight cath was attempted but there was an obstruction just inside the urethral opening. Even a size 12 leon could not be inserted. After that a 8 Fr pediatric feeding tube could be successfully inserted. Few small clots came out then cola colored urine was drained from the bladder 500 cc. U/A came back very dirty. 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 Urology was consulted. Acute Metabolic encephalopathy Has Fever with confusion Most probably has a urinary tract infection he was having frequency at home with some hematuria and in ED he was in acute urinary retension UA sent Will start on ceftriaxone Will continue IVF. Hypotension on arrival with a MAP of 65 to 70 patient may be dehydrated as his HH is higher than normal. his normal BPs are in 100s and 110s given ivf bolus with some improvement will continue with IVF 100 cc/ hour. Has h/o CHF so will have to be cautious about fluids. Acute urinary retention patient could not urinate in the ED fro a urine sample so straight cath was ordered. It was noted there is clotted blood at the tip of the penis. patient then admitted that he often sees few drops of blood when he urinates at home also unfortunately it seems like there is a stricture right at the tip of the urethral opening and the 12 Fr leon could not be passed. ED nurse was able to used a 8Rs nasogastric tube to drain the bladder . 500 cc of cola colored urine came out Hematuria with acute urinary retention. possibly has urethral strcture does mention that he had needed dilatation once many years ago. will hold ASA consult urology Untreatable rapidly progressing gastroesophageal junction adenocarcinoma with prognosis of about 6 months CAD s/p AMI hold asa due to hematuria will continue statin. Hypercholesterolemia continue statin GERD. continue PPI hypothyroidism. synthroid Chronic Diastolic CHF Now seems hypovolemic. will monitor for fluid overload as patint on IVf Plan / VTE VTE Prophylaxis Ordered?: Yes BIMAL ROTH MD Apr 27, 2019 17:05
[2019-04-27] MEDS: PANTOPRAZOLE 40MG TAB (PROTONIX) PO SCH (22:31)
[2019-04-27] MEDS: rOPINIRole 0.25 MG TAB(REQUIP) PO SCH (22:31)
[2019-04-27 23:59] VITALS: BP 84/53
[2019-04-28] VITALS (9 sets, daily range): BP systolic 82–148; BP diastolic 48–100
[2019-04-28] MEDS ORDERED: NS 500 ML IV ONE ×3 (01:15→03:15)
[2019-04-28] MEDS ORDERED: NS 1,000 ML IV ONE (02:15)
[2019-04-28 02:42] LABS: BASO % 0.2 % (0.0-1.0); EOS # 0.1 10^3/uL (0.0-0.5); EOS % 0.7 % (0.0-3.0); HEMATOCRIT 26.3 % (42.0-52.0); LYMPH % 2.4 % (24.0-44.0); MEAN CORPUSCULAR HEMOGLOBIN 27.4 pg (27.0-33.0); MEAN CORPUSCULAR HGB CONC 31.2 g/dl (32.0-36.5); MONO # 0.2 10^3/uL (0.0-0.8); MONO % 2.8 % (0.0-5.0); NEUTROPHILS # 7.9 10^3/uL (1.5-8.5); NEUTROPHILS % 93.5 % (36.0-66.0); PLATELET COUNT, AUTOMATED 151 10^3/uL (150-450); RED BLOOD COUNT 2.99 10^6/uL (4.30-6.10); WHITE BLOOD COUNT 8.5 10^3/uL (4.0-10.0)
[2019-04-28 02:53] LABS: LYMPH # 0.2 10^3/uL (1.5-5.0)
[2019-04-28 02:56] LABS: HEMOGLOBIN 8.2 g/dl (13.5-17.5)
[2019-04-28 03:06] LABS: CALCIUM LEVEL 7.2 MG/DL (8.8-10.2); CREATININE FOR GFR 1.34 MG/DL (0.70-1.30); GLOMERULAR FILTRATION RATE 54.1 (>35); MAGNESIUM LEVEL 1.7 MG/DL (1.8-2.4); POTASSIUM SERUM 3.6 MEQ/L (3.5-5.1)
[2019-04-28] MEDS: NS 1,000 ML IV SCH ×2 (04:21→12:42)
[2019-04-28 05:12] LABS: BASO % 0.3 % (0.0-1.0); EOS # 0.1 10^3/uL (0.0-0.5); EOS % 1.2 % (0.0-3.0); HEMATOCRIT 27.2 % (42.0-52.0); HEMOGLOBIN 8.3 g/dl (13.5-17.5); LYMPH % 2.1 % (24.0-44.0); MEAN CORPUSCULAR HEMOGLOBIN 26.8 pg (27.0-33.0); MEAN CORPUSCULAR HGB CONC 30.5 g/dl (32.0-36.5); MEAN CORPUSCULAR VOLUME 87.7 fl (80.0-96.0); MONO # 0.2 10^3/uL (0.0-0.8); MONO % 3.2 % (0.0-5.0); NEUTROPHILS % 92.8 % (36.0-66.0); PLATELET COUNT, AUTOMATED 166 10^3/uL (150-450); WHITE BLOOD COUNT 7.6 10^3/uL (4.0-10.0)
[2019-04-28 05:16] LABS: LYMPH # 0.2 10^3/uL (1.5-5.0)
[2019-04-28 05:31] LABS: CALCIUM LEVEL 7.7 MG/DL (8.8-10.2); CREATININE FOR GFR 1.31 MG/DL (0.70-1.30); GLOMERULAR FILTRATION RATE 55.5 (>35); POTASSIUM SERUM 3.5 MEQ/L (3.5-5.1)
[2019-04-28] MEDS: LEVOTHYROXINE 50MCG TABLET (0.05MG) PO SCH (06:23)
[2019-04-28] MEDS: PANTOPRAZOLE 40MG TAB (PROTONIX) PO SCH ×2 (09:53→20:43)
[2019-04-28] MEDS: SIMETHICONE 80 MG CHEW TAB PO SCH ×3 (09:53→17:36)
--- NOTE | 2019-04-28 13:15 | SMCUROLCON ---
Urology Consultation General Date of Consultation 04/28/19 Reason For Consultation This patient is seen for Esophageal Cancer; Fever/Chills. 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 While in the ER the patient was found to be in urinary retention. Several attempts were made to place catheters, until ultimately an 8Fr pediatric catheter was successfully placed. Per nursing report, each time they attempted to place a catheter, they met resistance just past the urethral meatus. The patient notes that prior to coming to the hospital, he had no trouble voiding. He also notes that he had never seen a urologist before, but a review of his medical record shows that he has a hx of prostate cancer treated w/ EBRT in 2008. Past Medical History Medical History CAD, esophageal cancer, prostate cancer, skin cancer Surgical Hstory b/l hip repairs Medications Current Medications Current Medications Medications (Trade) Dose Ordered Sig/Vero Route PRN Reason Start Time Stop Time Status Last Admin Dose Admin Acetaminophen (Tylenol Tab) 650 mg Q6HP PRN PO PAIN / FEVER 04/27/19 18:00 04/28/19 00:41 Ceftriaxone Sodium 2 gm/ Dextrose 50 ml @ 100 mls/hr Q24H IV 04/27/19 18:00 04/27/19 18:09 Home Med (Med Rec Complete!) ASDIRECTED XX 04/27/19 16:00 04/27/19 16:01 DC Levothyroxine Sodium (Synthroid) 50 mcg DAILY@0600 PO 04/28/19 06:00 04/28/19 06:23 Pantoprazole Sodium (Protonix) 40 mg BID PO 04/27/19 21:00 04/28/19 09:53 Ropinirole HCl (Requip) 0.5 mg QHS PO 04/27/19 21:00 04/27/19 22:31 Simethicone (Mylicon) 80 mg AC PO 04/28/19 07:30 04/28/19 09:53 Sodium Chloride 1,000 ml @ 100 mls/hr Q10H IV 04/27/19 17:45 04/28/19 04:21 Allergies Allergies: Coded Allergies: No Known Allergies (Unverified , 10/23/18) Review of Systems Constitutional: Denies: Fever, Chills Pulmonary: Denies: Dyspnea, Cough, Pleuritic Chest Pain, Other Symptoms Cardiovascular: Denies Chest Pain, Denies Palpitations, Denies Orthopnea, Denies Paroxysmal Noc. Dyspnea, Denies Edema, Denies Lt Headedness, Denies Other Symptoms Gastrointestinal: Denies: Nausea, Vomiting, Abdominal Pain Genitourinary: Reports: Hematuria, Retention Neurological: Reports: Weakness Physical Examination General Exam: Alert, Cooperative Chest Exam: Normal air movement Heart Exam: Rate Normal Abdomen Exam: Soft Male Exam uncircumcised phallus - glans w/ ulcerations - 8Fr catheter in place and draining dark dominique colored urine Vital Signs/I&O Vital Signs Date Time Temp Pulse Resp B/P (MAP) Pulse Ox O2 Delivery O2 Flow Rate FiO2 04/28/19 08:00 98.4 78 19 124/77 (93) 96 Room Air l I&O- Last 24 Hours up to 6 AM 04/28/19 06:00 Intake Total 3000 ml Output Total 800 ml Balance 2200 ml Laboratory Data 24H Labs Laboratory Tests 2 04/27/19 15:17: Lactic Acid Level 1.3 04/27/19 15:19: Influenza Type A (RT-PCR) NEGATIVE, Influenza Type B (RT-PCR) NEGATIVE 04/27/19 18:00: Urine Color YELLOW, Urine Appearance TURBIDH, Urine pH 6.0, Urine Specific Gravi ty 1.017, Urine Protein 2+H, Urine Glucose (UA) NEGATIVE, Urine Ketones NEGATIVE, Urine Blood 3+H, Urine Nitrite NEGATIVE, Urine Bilirubin NEGATIVE, Urine Urobilinogen 0.2, Urine Leukocyte Esterase NEGATIVE, Urine WBC (Auto) TNTCH, Urine RBC (Auto) TNTCH, Urine Hyaline Casts (Auto) 0, Urine Bacteria (Auto) NEGATIVE, Urine Squamous Epithelial Cells 0, Urine Yeast-Like Cells (Auto) LARGEH, Urine Sperm (Auto) 04/28/19 02:35: Immature Granulocyte % (Auto) 0.4, Neutrophils (%) (Auto) 93.5H, Lymphocytes (%) (Auto) 2.4L, Monocytes (%) (Auto) 2.8, Eosinophils (%) (Auto) 0.7, Basophils (%) (Auto) 0.2, Neutrophils # (Auto) 7.9, Lymphocytes # (Auto) 0.2L, Monocytes # (Auto) 0.2, Eosinophils # (Auto) 0.1, Basophils # (Auto) 0.0, Nucleated Red Blood Cells % (auto) 0.0, Anion Gap 6L, Glomerular Filtration Rate 54.1, Calcium Level 7.2#L, Magnesium Level 1.7L 04/28/19 04:41: Immature Granulocyte % (Auto) 0.4, Neutrophils (%) (Auto) 92.8H, Lymphocytes (%) (Auto) 2.1L, Monocytes (%) (Auto) 3.2, Eosinophils (%) (Auto) 1.2, Basophils (%) (Auto) 0.3, Neutrophils # (Auto) 7.0, Lymphocytes # (Auto) 0.2L, Monocytes # (Auto) 0.2, Eosinophils # (Auto) 0.1, Basophils # (Auto) 0.0, Nucleated Red Blood Cells % (auto) 0.0, Anion Gap 6L, Glomerular Filtration Rate 55.5, Calcium Level 7.7L CBC/BMP Laboratory Tests 04/28/19 02:35 04/28/19 04:41 Microbiology Microbiology 04/27/19 Urine Culture, Received Pending 04/27/19 Blood Culture, Received Pending 04/27/19 Blood Culture, Received Pending Assessment This is an 84 M w/ PMH significant for 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 He also has ulcerations on his glans that might require biopsy as well. Plan - recommend keeping catheter to gravity drainage - once patient is ready for discharge, he should be discharged w/ the catheter in place - my office will schedule follow up for the patient for cystoscopy and possible urethral dilation in office JUAN ELIZABETH MD Apr 28, 2019 11:45
--- NOTE | 2019-04-28 16:22 | IPNPDOC ---
Subjective Date Seen The patient was seen on 04/28/19. Subjective Chief Complaint/HPI Mr. Lopez is an 84 year old male admitted with fever due to confusion, hypotension, acute urinary retention and hematuria. Pt seen sitting up in bed this morning. He stated he is doing better today than when he was first admitted. Had some breakfast this morning with no problems. General: Reports: Normal Appetite; Denies: Chills, Night Sweats, Fatigue, Malaise Constitutional: Denies: Chills, Fever, Night Sweats Eyes: Denies: Pain ENT: Denies: Head Aches Skin: Denies: Rash Pulmonary: Denies: Dyspnea, Cough Cardiovascular: Denies: Chest Pain, Palpitations, Orthopnea, Paroxysmal Noc. Dyspnea, Lt Headedness Gastrointestinal: Denies: Nausea, Vomiting, Abdominal Pain, Diarrhea Genitourinary: Reports: Hematuria, Retention; Denies: Frequency Hematologic: Denies: Bruising Musculoskeletal: Denies: Neck Pain, Back Pain, Joint Pain, Muscle Pain, Spasms Neurological: Reports: Weakness, Numbness; Denies: Confusion Psych: Reports: Mood Normal Objective Physical Examination General Exam: Positive: Alert, Cooperative, No Acute Distress Eye Exam: Positive: PERRLA, Conjunctiva & lids normal, EOMI; Negative: Sclera icteric ENT Exam: Positive: Atraumatic, Mucous membr. moist/pink, Pharynx Normal Neck Exam: Positive: Supple; Negative: JVD, thyromegaly Chest Exam: Positive: Clear to auscultation, Normal air movement Heart Exam: Positive: Rate Normal, Regular Rhythm, Normal S1, Normal S2; Negative: Murmurs, Rubs Telemetry: Positive: No significant arrhythmia Abdomen Exam: Positive: Normal bowel sounds, Soft; Negative: Tenderness, Hepatospenomegaly Extremity Exam: Positive: Normal pulses; Negative: Clubbing, Cyanosis, Edema Neuro Exam: Positive: Normal Speech Psych Exam: Positive: Mood NL, Oriented x 3 Assessment /Plan Assessment "83 year old male with PMH of 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 This morning he went for his appontment in the oncology clinic he was noted to he lethargic falling asleep, very weak with lowish blood pressures and was sent to the ED for evaluation. In the ED he was febrile to 102.4 BP was 89/53. He did not complain about anything. He wanted to go home. As per he had gone to the bathroom 9- 10 times in the morning. As per daughters he was confused. At home he had poor appetite last night and he was having chills in the morning. Patient was asked to urinate for a urine sample. After multiple tried he could not urinate however he was adamant that he was urinating fine at home in the morning. Bladder scan showed 650 cc. Prior to straight cath dried blood and clot was noted at the tip of the penis. Straight cath was attempted but there was an obstruction just inside the urethral opening. Even a size 12 leon could not be inserted. After that a 8 Fr pediatric feeding tube could be successfully inserted. Few small clots came out then cola colored urine was drained from the bladder 500 cc. U/A came back very dirty. 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 Urology was consulted." Metabolic Encephalopathy - most likley 2/2 UTI and dehydration - has improved with abx and IVF - continue ceftriaxone - blood cultures - no growth after 24 hours. Urine cultures - pending - pt eating and drinking - push fluids Hypotension on arrival -with a MAP of 65 to 70 - now resolved -d/c IVF as pt also has Hx of CHF Hematuria with acute urinary retention. -possibly has urethral stricture - does mention that he had needed dilatation once many years ago. -will hold ASA -urology consulted - recommend keeping catheter through d/c and outpt f/u for cystoscopy and possible urethral dilation Untreatable rapidly progressing gastroesophageal junction adenocarcinoma with prognosis of about 6 months CAD s/p AMI -hold asa due to hematuria -continue statin. Hypercholesterolemia -continue statin GERD -continue PPI hypothyroidism. - continue Synthroid Chronic diastolic CHF remains euvolemic Plan/VTE VTE Prophylaxis Ordered?: Yes VS, I&O, 24H, Fishbone Vital Signs/I&O Vital Signs Date Time Temp Pulse Resp B/P (MAP) Pulse Ox O2 Delivery O2 Flow Rate FiO2 04/28/19 16:00 98.5 95 17 134/75 (94) 99 Room Air I&O- Last 24 Hours up to 6 AM 04/28/19 06:00 Intake Total 3000 ml Output Total 800 ml Balance 2200 ml Laboratory Data 24H LABS Laboratory Tests 2 04/27/19 18:00: Urine Color YELLOW, Urine Appearance TURBIDH, Urine pH 6.0, Urine Specific [place] 1.017, Urine Protein 2+H, Urine Glucose (UA) NEGATIVE, Urine Ketones NEGATIVE, Urine Blood 3+H, Urine Nitrite NEGATIVE, Urine Bilirubin NEGATIVE, Urine Urobilinogen 0.2, Urine Leukocyte Esterase NEGATIVE, Urine WBC (Auto) TNTCH, Urine RBC (Auto) TNTCH, Urine Hyaline Casts (Auto) 0, Urine Bacteria (Auto) NEGATIVE, Urine Squamous Epithelial Cells 0, Urine Yeast-Like Cells (Auto) LARGEH, Urine Sperm (Auto) 04/28/19 02:35: Immature Granulocyte % (Auto) 0.4, Neutrophils (%) (Auto) 93.5H, Lymphocytes (%) (Auto) 2.4L, Monocytes (%) (Auto) 2.8, Eosinophils (%) (Auto) 0.7, Basophils (%) (Auto) 0.2, Neutrophils # (Auto) 7.9, Lymphocytes # (Auto) 0.2L, Monocytes # (Auto) 0.2, Eosinophils # (Auto) 0.1, Basophils # (Auto) 0.0, Nucleated Red Blood Cells % (auto) 0.0, Anion Gap 6L, Glomerular Filtration Rate 54.1, Calcium Level 7.2#L, Magnesium Level 1.7L 04/28/19 04:41: Immature Granulocyte % (Auto) 0.4, Neutrophils (%) (Auto) 92.8H, Lymphocytes (%) (Auto) 2.1L, Monocytes (%) (Auto) 3.2, Eosinophils (%) (Auto) 1.2, Basophils (%) (Auto) 0.3, Neutrophils # (Auto) 7.0, Lymphocytes # (Auto) 0.2L, Monocytes # (Auto) 0.2, Eosinophils # (Auto) 0.1, Basophils # (Auto) 0.0, Nucleated Red Blood Cells % (auto) 0.0, Anion Gap 6L, Glomerular Filtration Rate 55.5, Calcium Level 7.7L CBC/BMP Laboratory Tests 04/28/19 02:35 04/28/19 04:41 Microbiology Microbiology 04/27/19 Urine Culture, Received Pending 04/27/19 Blood Culture - Preliminary, Resulted No growth after 24 hours . All specim... 04/27/19 Blood Culture - Preliminary, Resulted No growth after 24 hours . All specim... MARCIAL RODRIGUEZ PA-C Apr 28, 2019 16:22 BIMAL ROTH MD May 04, 2019 12:50
[2019-04-28] MEDS: cefTRIAXone SOD 2 GM in D5W MINI-BAG PLUS 50 ML IV SCH (17:36)
[2019-04-28] MEDS: rOPINIRole 0.25 MG TAB(REQUIP) PO SCH (20:43)
[2019-04-29] VITALS: BP 109/73
[2019-04-29] MEDS: NS 1,000 ML IV SCH (00:22)
[2019-04-29] MEDS: LEVOTHYROXINE 50MCG TABLET (0.05MG) PO SCH (06:00)
[2019-04-29 07:51] VITALS: BP 125/79
[2019-04-29 08:16] LABS: BASO % 0.2 % (0.0-1.0); EOS # 0.2 10^3/uL (0.0-0.5); EOS % 3.8 % (0.0-3.0); HEMATOCRIT 26.6 % (42.0-52.0); HEMOGLOBIN 8.4 g/dl (13.5-17.5); LYMPH # 0.4 10^3/uL (1.5-5.0); LYMPH % 9.1 % (24.0-44.0); MEAN CORPUSCULAR HEMOGLOBIN 27.5 pg (27.0-33.0); MEAN CORPUSCULAR HGB CONC 31.6 g/dl (32.0-36.5); MEAN CORPUSCULAR VOLUME 87.2 fl (80.0-96.0); MONO # 0.4 10^3/uL (0.0-0.8); MONO % 10.6 % (0.0-5.0); NEUTROPHILS # 3.2 10^3/uL (1.5-8.5); NEUTROPHILS % 75.8 % (36.0-66.0); PLATELET COUNT, AUTOMATED 164 10^3/uL (150-450); RED BLOOD COUNT 3.05 10^6/uL (4.30-6.10); WHITE BLOOD COUNT 4.2 10^3/uL (4.0-10.0)
[2019-04-29 08:37] LABS: BLOOD UREA NITROGEN 18 MG/DL (7-18); CALCIUM LEVEL 7.5 MG/DL (8.8-10.2); CARBON DIOXIDE LEVEL 24 MEQ/L (21-32); CHLORIDE LEVEL 113 MEQ/L (98-107); CREATININE FOR GFR 0.89 MG/DL (0.70-1.30); GLOMERULAR FILTRATION RATE > 60.0 (>35); GLUCOSE, FASTING 118 MG/DL (70-100); POTASSIUM SERUM 3.4 MEQ/L (3.5-5.1); SODIUM LEVEL 143 MEQ/L (136-145)
[2019-04-29] MEDS: SIMETHICONE 80 MG CHEW TAB PO SCH ×2 (08:50→12:09)
[2019-04-29] MEDS: PANTOPRAZOLE 40MG TAB (PROTONIX) PO SCH (08:50)
[2019-04-29] MEDS ORDERED: CEFD300CAP PO (11:11)
[2019-04-29] MEDS ORDERED: cefTRIAXone SOD 2 GM in D5W MINI-BAG PLUS 50 ML IV ONE (11:15)
[2019-04-29] MEDS ORDERED: POTASSIUM CHLORIDE 10 MEQ SR TABLET PO ONE (11:15)
[2019-04-29 11:49] VITALS: BP 110/69
--- NOTE | 2019-05-06 13:47 | DS.PDOC ---
Discharge Summary General Date of Admission Apr 27, 2019 at 17:39 Date of Discharge 04/29/19 Discharge Summary PROCEDURES PERFORMED DURING STAY: [None]. DISCHARGE DIAGNOSES: UTI Acute metabolic encephalopathy due to above Acute urinary retention with hematuria possibly has urethral stricture Hypotension due to hypovolemia from poor intake and use of diuretics. Hypomagnesemia Hypokalemia SECONDARY DIAGNOSIS: 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 Status post up front palliative radiation completed 06/2018. 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 CAD status post [place]. No stents. No CABG. Diastolic CHF with preserved EF The patient denies type 2 diabetes. Hearing impairment. Hypercholesterolemia, anemia, iron deficiency, B12 deficiency. GERD. Iron deficiency / multifactorial anemia. hypothyroidism. Left total hip replacement. GE junction/gastric vascular cautery October 2018. COMPLICATIONS/CHIEF COMPLAINT: Esophageal Cancer; Fever/Chills. HISTORY OF PRESENT ILLNESS: See history an physical HOSPITAL COURSE: 83 year old male with PMH of 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 This morning he went for his appontment in the oncology clinic he was noted to he lethargic falling asleep, very weak with lowish blood pressures and was sent to the ED for evaluation. In the ED he was febrile to 102.4 BP was 89/53. He did not complain about anything. He wanted to go home. As per he had gone to the bathroom 9- 10 times in the morning. As per daughters he was confused. At home he had poor appetite last night and he was having chills in the morning. Patient was asked to urinate for a urine sample. After multiple tried he could not urinate however he was adamant that he was urinating fine at home in the morning. Bladder scan showed 650 cc. Prior to straight cath dried blood and clot was noted at the tip of the penis. Straight cath was attempted but there was an obstruction just inside the urethral opening. Even a size 12 leon could not be inserted. After that a 8 Fr pediatric feeding tube could be successfully inserted. Few small clots came out then cola colored urine was drained from the bladder 500 cc. U/A came back very dirty. 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 Urology was consulted." UTI with acute encephalopathy - has improved with abx and IVF - received 2 doses of ceftriaxone. will change to cefdinir - blood cultures - no growth after 24 hours. Urine cultures - Aerococcus Urinae Hypotension on arrival due to hypovolemia and poor intake on the back ground of chronic diuretic use. -with a MAP of 65 to 70 - now resolved Hematuria with acute urinary retention. -possibly has urethral stricture, had difficult cath insertion and only could have a 8 Fr pediatric cath pass through. - does mention that he had needed dilatation once many years ago. -urology consulted - recommend to be discharged with leon and outpt f/u for cystoscopy and possible urethral dilation Untreatable rapidly progressing gastroesophageal junction adenocarcinoma with prognosis of about 6 months CAD s/p AMI -continue statin and Asa Hypercholesterolemia -continue statin GERD -continue PPI hypothyroidism. - continue Synthroid DISCHARGE MEDICATIONS: Please see below. ALLERGIES: Please see below. PHYSICAL EXAMINATION ON DISCHARGE: VITAL SIGNS: Please see below. General Exam: Positive: Alert, Cooperative, No Acute Distress Eye Exam: Positive: PERRLA, Conjunctiva & lids normal, EOMI; Negative: Sclera icteric ENT Exam: Positive: Atraumatic, Mucous membr. moist/pink, Pharynx Normal Neck Exam: Positive: Supple; Negative: JVD, thyromegaly Chest Exam: Positive: Clear to auscultation, Normal air movement Heart Exam: Positive: Rate Normal, Regular Rhythm, Normal S1, Normal S2; Negative: Murmurs, Rubs Telemetry: Positive: No significant arrhythmia Abdomen Exam: Positive: Normal bowel sounds, Soft; Negative: Tenderness, Hepatospenomegaly Extremity Exam: Positive: Normal pulses; Negative: Clubbing, Cyanosis, Edema Neuro Exam: Positive: Normal Speech Psych Exam: Positive: Mood NL, Oriented x 3 LABORATORY DATA: Please see below. PROGNOSIS: Poor ACTIVITY: [As tolerated]. DIET: As tolerated DISPOSITION: Home Health Service. DISCHARGE INSTRUCTIONS: Follow up urology Dr robledo in 1 week for acute urinary retention with leon Follow up Oncology as per outpatient schedule Follow up PMD in 2 weeks. DISCHARGE CONDITION: [Stable]. TIME SPENT ON DISCHARGE: 35 minutes. Vital Signs/I&Os Vital Signs Label Value Date Time Patient Temperature 97.9 degrees F 04/29/19 1149 Temperature Source Temporal 04/29/19 1149 Pulse 83 04/29/19 1149 Respiratory Rate 18 bpm 04/29/19 1149 Blood Pressure Assessment 110/69 (83) 04/29/19 1149 Bedside Pulse Oximetry 98 % 04/29/19 1149 Item Value Date Time Oxygen Delivery Method Room Air 04/29/19 1149 Laboratory Data CBC/BMP Item Value Date Time White Blood Count 4.2 10^3/uL 04/29/19 0726 Red Blood Count 3.05 10^6/uL L 04/29/1926 Hemoglobin 8.4 g/dl L 04/29/19725 Hematocrit 26.6 % L 04/29/19725 Mean Corpuscular Volume 87.2 fl 04/29/19725 Mean Corpuscular Hemoglobin 27.5 pg 04/29/19725 Mean Corpuscular Hemoglobin Concent 31.6 g/dl L 04/29/19725 Red Cell Distribution Width 20.6 % H 04/29/19725 Platelet Count 164 10^3/uL 04/29/19725 Immature Granulocyte % (Auto) 0.5 % 04/29/19725 Neutrophils (%) (Auto) 75.8 % H 04/29/19725 Lymphocytes (%) (Auto) 9.1 % L 04/29/19725 Monocytes (%) (Auto) 10.6 % H 04/29/19725 Eosinophils (%) (Auto) 3.8 % H 04/29/19725 Basophils (%) (Auto) 0.2 % 04/29/19725 Neutrophils # (Auto) 3.2 10^3/uL 04/29/1926 Lymphocytes # (Auto) 0.4 10^3/uL L 04/29/1926 Monocytes # (Auto) 0.4 10^3/uL 04/29/1926 Eosinophils # (Auto) 0.2 10^3/uL 04/29/19725 Basophils # (Auto) 0.0 10^3/uL 04/29/19725 Nucleated Red Blood Cells % (auto) 0.0 % 04/29/19725 Sodium Level 143 MEQ/L 04/29/19725 Potassium Level 3.4 MEQ/L L 1/23/20 0726 Chloride Level 113 MEQ/L H 04/29/19 0726 Carbon Dioxide Level 24 MEQ/L 04/29/19 0726 Anion Gap 6 MEQ/L L 04/29/19 0726 Blood Urea Nitrogen 18 MG/DL 04/29/19 0726 Creatinine 0.89 MG/DL 04/29/19 0726 Glomerular Filtration Rate > 60.0 04/29/19 0726 Fasting Glucose 118 MG/DL H 04/29/19 0726 Calcium Level 7.5 MG/DL L 04/29/19 0726 Microbiology Microbiology 04/27/19 Urine Culture - Final, Complete Aerococcus Urinae 04/27/19 Blood Culture - Final, Complete NO GROWTH AFTER 5 DAYS 04/27/19 Blood Culture - Final, Complete NO GROWTH AFTER 5 DAYS Discharge Medications Scheduled Aspirin (Aspir 81) 81 Mg Tab, 81 MG PO DAILY, (Reported) Atorvastatin Calcium (Atorvastatin Calcium) 40 Mg Tablet, 40 MG PO QHS, (Reported) Cefdinir (Cefdinir) 300 Mg Capsule, 1 CAP PO BID Cyanocobalamin (Vitamin B-12) (Vitamin B-12) 1,000 Mcg Tablet, 1,000 MCG PO DAILY, (Reported) Ferrous Sulfate (Slow Release Iron) 250 Mg Tablet.er, 45 MG PO DAILY, (Reported) Furosemide (Furosemide) 40 Mg Tablet, 20 MG PO DAILY, (Reported) Levothyroxine Sodium (Levoxyl) 50 Mcg Tablet, 50 MCG PO DAILY, (Reported) Pantoprazole Sodium (Protonix) 40 Mg Tablet.dr, 40 MG PO BID, (Reported) Ropinirole HCl (Ropinirole HCl) 0.5 Mg Tab, 0.5 MG PO QHS, (Reported) Simethicone (Gas Relief 80) 80 Mg Tab.chew, 80 MG PO AC, (Reported) Spironolactone (Spironolactone) 25 Mg Tablet, 25 MG PO DAILY, (Reported) Allergies Coded Allergies: No Known Allergies (Unverified , 10/23/18) BIMAL ROTH MD May 06, 2019 13:47
== END 2019-04-29 15:40 | disposition home health service (06) | DRG 689 ==
LOC: M ED 14:43 → EDBD 14:43 → M ED INP 17:39 → ENRESERV 18:08 → M PCU 19:52
PROVIDERS: ADMIT Internal Medicine Nephrology; ATTEND Internal Medicine Nephrology
DX: N39.0 Urinary tract infection, site not specified (principal); G93.41 Metabolic encephalopathy; C16.0 Malignant neoplasm of cardia; I50.32 Chronic diastolic (congestive) heart failure; I95.9 Hypotension, unspecified; E86.1 Hypovolemia; N35.919 Unspecified urethral stricture, male, unspecified site; R31.9 Hematuria, unspecified; Z79.82 Long term (current) use of aspirin; D50.9 Iron deficiency anemia, unspecified; I25.10 Atherosclerotic heart disease of native coronary artery without angina pectoris; I25.2 Old myocardial infarction; K21.9 Gastro-esophageal reflux disease without esophagitis; E53.8 Deficiency of other specified B group vitamins; Z96.642 Presence of left artificial hip joint; E83.42 Hypomagnesemia; E87.6 Hypokalemia; D64.9 Anemia, unspecified; E11.9 Type 2 diabetes mellitus without complications; Z85.46 Personal history of malignant neoplasm of prostate; E03.9 Hypothyroidism, unspecified

== ENCOUNTER 2019-05-08 20:51 | Emergency (ER) | payer MEDICARE, BC ==
[~2019-05-08] VITALS: Ht 170.2 cm; Wt 69.3 kg
[~2019-05-08 20:51] MED LIST changes: +CEFD300CAP PO; +GNP80CHW PO; +PROT1TAB2 PO
[2019-05-08] MEDS ORDERED: FLUCONAZOLE 50MG TABLET PO ONE (22:30)
--- NOTE | 2019-05-08 22:34 | REPVR ---
PROCEDURE INFORMATION: Exam: US Pelvis Limited, Male Exam date and time: 05/08/2019 9:59 PM Age: 84 years old Clinical indication: Retention of urine; Additional info: Urinary retention/catheter issue TECHNIQUE: Imaging protocol: Real-time pelvic ultrasound with image documentation of the urinary bladder. COMPARISON: PT PET/CT Skull/mid thigh 04/13/2019 9:35 AM (The report from this study was not available for review at the time of this interpretation.) FINDINGS: Prostate: Not imaged. Seminal Vesicles: Not imaged. Bladder: The urinary bladder volume measures 258.2 mL. There is a 1.9 cm x 1.1 cm x 2.5 cm echogenic avascular region in the dependent portion of the urinary bladder, which may represent hemorrhage, debris, or a Mcguire catheter. IMPRESSION: 1.9 cm x 1.1 cm x 2.5 cm echogenic avascular region in the dependent portion of the urinary bladder, which may represent hemorrhage, debris, or a Mcguire catheter. Electronically signed by: Kael Rayo On 05/08/2019 22:35:53 PM
[2019-05-08] MEDS ORDERED: TRIA25CR TOP (22:37)
--- NOTE | 2019-05-08 22:45 | SMCUROLCON ---
Urology Consultation General Date of Consultation 05/08/19 Reason For Consultation This patient is seen for Urine Problem. History of Present Illness The patient is a 86-year-old white male with a past medical history for CAD and esophageal cancer with severe ureteral stricture disease. Was seen by urology on Friday. Had an 8Fr pediatric leon catheter placed. Family stated it stopped draining a few hours ago and brought patient to the ED. Past Medical History Medical History as above, reviewed Surgical Hstory reviewed Family History Significant Family History: No pertinent family hx Social History * Smoker: former Smoker Alcohol: Denies Drugs: denies Medications Current Medications reviewed Allergies Allergies: Coded Allergies: No Known Allergies (Unverified , 10/23/18) Review of Systems General: Denies: Chills, Night Sweats Genitourinary: Reports: Retention, Other Symptoms (pain on glans penis and blisters) Hematologic: Denies: Purpura, Enlarged Lymph Nodes Psych: Reports: Mood Normal; Denies: Anxiety Physical Examination General Exam: Cooperative, No Acute Distress Male Exam: Lesions, Edema, Tenderness; No: Discharge, Mass (8FR leon not in suffiently far. I advanced it then flushed it and it immediately drained clear yellow urine. ) Extremity Exam: No: Clubbing Vital Signs/I&O Vital Signs Date Time Temp Pulse Resp B/P (MAP) Pulse Ox O2 Delivery O2 Flow Rate FiO2 05/08/19 20:53 99.0 101 12 135/79 (97) 97 Room Air Assessment leon catheter problem, urethral stricture disease, urinary retention, penile blisters/candidiasis and inflammation Plan Secure leon in place. Pt may go home. Please give one dose of Diflucan 150mg (ER to give) and have patient go [facility] with rx for Triamcinolone acetanide ointment or cream BID for his glans penis. Time Spent on Consult: Time Spent / Consult (Minutes): 45 LISANDRO JACOB MD May 08, 2019 22:45
[2019-05-08 23:35] VITALS: BP 141/88
== END 2019-05-08 23:38 | disposition home or self-care (01) ==
LOC: M ED 20:51
DX: T83.098A Other mechanical complication of other urinary catheter, initial encounter (principal); N48.9 Disorder of penis, unspecified; I11.0 Hypertensive heart disease with heart failure; E78.5 Hyperlipidemia, unspecified; K21.9 Gastro-esophageal reflux disease without esophagitis; C16.0 Malignant neoplasm of cardia; Z85.46 Personal history of malignant neoplasm of prostate; E78.00 Pure hypercholesterolemia, unspecified; E03.9 Hypothyroidism, unspecified; Z79.02 Long term (current) use of antithrombotics/antiplatelets; Z79.899 Other long term (current) drug therapy

== ENCOUNTER → 2019-05-10 | Outpatient (REF) | payer MEDICARE, BC ==
[~2019-05-10] MED LIST changes: +TRIA25CR TOP
[2019-05-10 18:05] LABS: INR 1.19; PROTHROMBIN TIME 14.8 SECONDS (11.8-14.0)
[2019-05-10 18:06] LABS: PARTIAL THROMBOPLASTIN TIME 34.6 SECONDS (25.0-38.4)
== END ==
LOC: M LAB REF 16:56
PROVIDERS: ATTEND Family Medicine
DX: Z01.818 Encounter for other preprocedural examination (principal); Z79.01 Long term (current) use of anticoagulants

== ENCOUNTER 2019-05-19 09:45 | Day surgery (SDC) | payer MEDICARE, BC ==
[~2019-05-19] VITALS: Ht 170.2 cm; Wt 66.2 kg
[~2019-05-19 09:45] MED LIST changes: +LIDOCAINE 1% MDV 20ML VIAL SQ PRN; +LR 1,000 ML IV ONE; +NITR-67 PO; -ROPI0.5T PO; +ROPI0.5T3 PO; +ceFAZolin SOD 2 GM in IV 1 EA IV ONE
[2019-05-19] MEDS ORDERED: LEVO75TA4 PO (11:15)
[2019-05-19] MEDS ORDERED: LIDOCAINE 2% INJ 100 MG/5 ML SDV (FOR ANES.) As Ordered ONE (11:23)
[2019-05-19] MEDS ORDERED: propofoL 200 MG/20 ML VIAL As Ordered ONE ×2 (11:23→14:04)
[2019-05-19] MEDS ORDERED: fentaNYL 100 MCG/2 ML INJECTION (J3010) As Ordered ONE (11:23)
[2019-05-19] MEDS ORDERED: ONDANSETRON 4MG/2ML VIAL (J2405) As Ordered ONE (11:26)
[2019-05-19] MEDS ORDERED: LIDOCAINE 2% 5ML JELLY UROJET As Ordered ONE (13:07)
[2019-05-19] MEDS ORDERED: ACETAMINOPHEN 1000MG 100ML IV BTL (OFIRMEV) (J0131 PER 10MG) As Ordered ONE (13:21)
[2019-05-19 14:35] VITALS: BP 103/71
--- NOTE | 2019-05-20 09:30 | RO ---
DATE OF PROCEDURE: 05/19/2019 PREPROCEDURE DIAGNOSIS: Urethral stricture. POSTPROCEDURE DIAGNOSIS: Meatal stenosis. PROCEDURE: Urethral meatal dilation, cystoscopy. SURGEON: Cezar Mota MD MEDICAL EDUCATION SPECIALIST: None. ANESTHESIA: MAC. OPERATIVE INDICATIONS: This is an 84-year-old male with what appeared to be urethral stricture who was brought to the operating room today for treatment. DESCRIPTION OF PROCEDURE: The patient was brought to the operating room and MAC anesthesia was administered. Prophylactic antibiotics were infused. He was then placed in the dorsal lithotomy position, prepped and draped in the usual sterile fashion. At this point, I dilated his urethral meatus to 28-Salvadorean using curved metal sounds. Once that was done, I was able to advance a rigid cystoscope into the urethra. The entire urethra was examined and there were no additional strictures in the remainder of the course of the urethra. The patient did have trilobar benign prostatic hyperplasia with very prominent median lobe. The median lobe did bleed a little bit as the scope was advanced into the bladder. The bladder was examined and no lesions were seen. The bladder was moderately to severely trabeculated. Once done examining the bladder, the scope was withdrawn and once again there were no other urethral abnormalities. I then advanced an 18-Salvadorean Mcguire catheter through the urethra and into the bladder without any difficulty. The balloon was filled with 10 mL of sterile water and the catheter was connected to gravity drainage. This marked conclusion of the procedure. The patient was taken out of dorsal lithotomy position, awakened from anesthesia and transferred to the recovery room in stable condition. ESTIMATED BLOOD LOSS: 10 mL. COMPLICATIONS: None. SPECIMENS: None. PLAN: The patient will followup in the clinic in approximately 1 week for catheter removal and voiding trial. RICHARD
== END 2019-05-19 16:07 | disposition home or self-care (01) ==
LOC: M SDC 09:45
PROVIDERS: ATTEND Urology
DX: N35.911 Unspecified urethral stricture, male, meatal (principal); R33.9 Retention of urine, unspecified; N39.0 Urinary tract infection, site not specified; I50.32 Chronic diastolic (congestive) heart failure; I11.0 Hypertensive heart disease with heart failure; C15.5 Malignant neoplasm of lower third of esophagus; R60.0 Localized edema; E03.9 Hypothyroidism, unspecified; D64.9 Anemia, unspecified; Z85.46 Personal history of malignant neoplasm of prostate; G25.81 Restless legs syndrome; E11.9 Type 2 diabetes mellitus without complications; R94.31 Abnormal electrocardiogram [ECG] [EKG]; I25.2 Old myocardial infarction; Z79.899 Other long term (current) drug therapy; Z79.82 Long term (current) use of aspirin
CPT/HCPCS: 52281; J0131; J0690; J2405; J3010

== ENCOUNTER 2019-06-01 06:01 | Day surgery (SDC) | payer MEDICARE, BC ==
[~2019-06-01] VITALS: Ht 170.2 cm; Wt 64.4 kg
[~2019-06-01 06:01] MED LIST changes: +LEVO75TA4 PO; -LR 1,000 ML IV ONE; -ceFAZolin SOD 2 GM in IV 1 EA IV ONE
[2019-06-01] MEDS ORDERED: LR 1,000 ML IV ONE (07:00)
[2019-06-01] MEDS ORDERED: LIDOCAINE 2% INJ 100 MG/5 ML SDV (FOR ANES.) As Ordered ONE (07:11)
[2019-06-01] MEDS ORDERED: propofoL 200 MG/20 ML VIAL As Ordered ONE (07:11)
[2019-06-01] MEDS ORDERED: dexameTHASONE 4 MG/ML 1ML VIAL (J1100) As Ordered ONE (07:11)
[2019-06-01] MEDS ORDERED: ONDANSETRON 4MG/2ML VIAL (J2405) As Ordered ONE ×2 (07:11→08:49)
[2019-06-01] MEDS ORDERED: fentaNYL 100 MCG/2 ML INJECTION (J3010) As Ordered ONE ×2 (07:12→09:27)
[2019-06-01] MEDS ORDERED: SEVOFLURANE INHAL SOLN 250 ML BTL As Ordered ONE (08:02)
[2019-06-01] MEDS ORDERED: PHENYLephrine HCL 500 MCG/5 ML (100MCG/ML) SYRINGE (J2370) As Ordered ONE (08:34)
--- NOTE | 2019-06-01 08:45 | ROOR ---
Patient Name: Anibal Lopez Procedure Date: 06/01/2019 7:43 AM Date of : 1935 Age: 84 Room: Main OR Gender: Male Note Status: Finalized Procedure: Upper GI endoscopy Indications: Dysphagia Providers: Jason Alberto MD Referring MD: Nick Riddle MD Requesting Provider: Medicines: Monitored Anesthesia Care Complications: No immediate complications. Procedure: Pre-Anesthesia Assessment: - Prior to the procedure, a History and Physical was performed, and patient medications and allergies were reviewed. The patient is competent. The risks and benefits of the procedure and the sedation options and risks were discussed with the patient. All questions were answered and informed consent was obtained. Patient identification and proposed procedure were verified by the physician, the nurse and the anesthesiologist in the procedure room. Mental Status Examination: alert and oriented. Airway Examination: normal oropharyngeal airway and neck mobility. Respiratory Examination: clear to auscultation. CV Examination: normal. Prophylactic Antibiotics: The patient does not require prophylactic antibiotics. Prior Anticoagulants: The patient has taken no previous anticoagulant or antiplatelet agents. ASA Grade Assessment: III - A patient with severe systemic disease. After reviewing the risks and benefits, the patient was deemed in satisfactory condition to undergo the procedure. The anesthesia plan was to use monitored anesthesia care (MAC). Immediately prior to administration of medications, the patient was re-assessed for adequacy to receive sedatives. The heart rate, respiratory rate, oxygen saturations, blood pressure, adequacy of pulmonary ventilation, and response to care were monitored throughout the procedure. The physical status of the patient was re-assessed after the procedure. The Colonoscope was introduced through the mouth, and advanced to the second part of duodenum. The upper GI endoscopy was accomplished without difficulty. The patient tolerated the procedure well. Findings: A large, fungating and ulcerating mass with no bleeding and no stigmata of recent bleeding was found in the lower third of the esophagus and at the gastroesophageal junction, 36 to 42 cm from the incisors. The mass was completely obstructing and partially circumferential (involving two thirds of the lumen circumference). This was stented with an 18 mm x 12.3 cm WallFlex partially covered stent under fluoroscopic guidance, proximal margin at 30 cm and distal margin at 42 cm from the incisors. A medium amount of food (residue) was found in the gastric fundus and in the gastric antrum. The duodenal bulb and second portion of the duodenum were normal. 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 Prosthesis placed. - A medium amount of food (residue) in the stomach. - Normal duodenal bulb and second portion of the duodenum. - No specimens collected. Recommendation: - Patient has a contact number available for emergencies. The signs and symptoms of potential delayed complications were discussed with the patient. Return to normal activities tomorrow. Written discharge instructions were provided to the patient. - Mechanical soft diet and soft diet. - Continue present medications. - Use Protonix (pantoprazole) 40 mg PO twice daily - to be taken in morning (1/2 hour before breakfast) and at bedtime ( atleast 3 hours after last meal) for 3 months. - Follow an antireflux regimen. - Telephone GI clinic if symptomatic tomorrow. - Return to primary care physician. - Use metoclopramide 5 mg PO QID; 30 min AC and HS for 2 weeks. Jason Alberto MD Jason Alberto MD 06/01/2019 8:45:07 AM Electronically signed by Jason Alberto MD Number of Addenda: 0 Note Initiated On: 06/01/2019 7:43 AM Estimated Blood Loss: Estimated blood loss: none.
[2019-06-01] MEDS ORDERED: METOCLOPRAMIDE INJ 10MG/2ML VIAL (J2765) As Ordered ONE (08:50)
[2019-06-01] MEDS ORDERED: KETOROLAC 30 MG/ML VIAL (J1885) As Ordered ONE (09:27)
[2019-06-01] MEDS ORDERED: ACETAMINOPHEN 1000MG 100ML IV BTL (OFIRMEV) (J0131 PER 10MG) As Ordered ONE (09:28)
[2019-06-01] MEDS ORDERED: METOCLOPRAMIDE INJ 10MG/2ML VIAL (J2765) IV PRN (09:30)
[2019-06-01] MEDS ORDERED: fentaNYL 100 MCG/2 ML INJECTION (J3010) IV PRN (09:30)
[2019-06-01] MEDS ORDERED: oxyCODONE 5MG TAB PO PRN (09:30)
[2019-06-01] MEDS ORDERED: ONDANSETRON 4MG/2ML VIAL (J2405) IV PRN (09:30)
[2019-06-01] MEDS ORDERED: LR 1,000 ML IV SCH (09:30)
[2019-06-01] MEDS ORDERED: ACETAMINOPHEN *IV* 1,000 MG IV ONE ×2 (09:45)
[2019-06-01] MEDS ORDERED: KETOROLAC 30 MG/ML VIAL (J1885) IV PRN (10:30)
--- NOTE | 2019-06-01 10:42 | REP ---
ABDOMEN SERIES: Intraoperative imaging. 36 views. HISTORY: Esophageal mass. 31 seconds of fluoroscopy time is reported. FINDINGS: A sequence of 36 last image hold fluoroscopically obtained spot radiographs of the abdomen document endoscopic placement of a distal esophageal stent. Electronically Signed by Cole Betancourt MD 06/01/2019 11:00 A
[2019-06-01] MEDS ORDERED: CETACAINE SPRAY 5GM As Ordered ONE (11:14)
[2019-06-01 12:00] VITALS: BP 110/71
== END 2019-06-01 12:29 | disposition home or self-care (01) ==
LOC: M SDC 06:01
PROVIDERS: ATTEND Internal Medicine Gastroenterology
DX: D49.0 Neoplasm of unspecified behavior of digestive system (principal); R13.10 Dysphagia, unspecified; I11.0 Hypertensive heart disease with heart failure; I50.32 Chronic diastolic (congestive) heart failure; I25.10 Atherosclerotic heart disease of native coronary artery without angina pectoris; I48.91 Unspecified atrial fibrillation; I25.2 Old myocardial infarction; R94.31 Abnormal electrocardiogram [ECG] [EKG]; K21.9 Gastro-esophageal reflux disease without esophagitis; M16.12 Unilateral primary osteoarthritis, left hip; E03.9 Hypothyroidism, unspecified; D64.9 Anemia, unspecified; Z85.46 Personal history of malignant neoplasm of prostate; Z85.01 Personal history of malignant neoplasm of esophagus; Z92.3 Personal history of irradiation; Z96.642 Presence of left artificial hip joint; Z79.899 Other long term (current) drug therapy; Z79.82 Long term (current) use of aspirin
CPT/HCPCS: 43266; 74360; C1874; J0131; J1100; J2370; J2405; J2765; J3010